=== PATIENT | male | born 1950 | race Caucasian/White ===

== ENCOUNTER → 2018-06-21 13:50 | Outpatient (CLI) | payer MEDICARE, OTHER, SELFPAY ==
--- NOTE | 2018-06-21 13:54 | US_ITS ---
STUDY: RENAL ULTRASOUND - COMPLETE REASON FOR EXAM: Male, 67 years old. Decreased urinary stream TECHNIQUE: Ultrasound evaluation of the kidneys was performed with real-time and static escobar-scale imaging. COMPARISON: None. FINDINGS: RIGHT KIDNEY: Normal location of the right kidney, which is normal in size. The right kidney measures 11.5 x 4.8 x 5.2 cm cm. There is a normal cortex of the right kidney. The renal cortex measures 1.3 cm. There is a cyst measuring 7.7 x 5.7 x 5.5 cm. There are no right renal calculi. There is no right hydronephrosis. DISTAL RIGHT URETER: There is non-visualization of the distal right ureter. There is no demonstrated right ureterovesical junction calculus. There is a visualized right ureteral jet. LEFT KIDNEY: Normal location of the left kidney, which is normal in size. The left kidney measures 12.5 x 5 x 4.5 cm. There is a normal cortex of the left kidney. The renal cortex measures 3.1 cm. There are 3 cysts measuring 3.8 x 2.9 x 4 cm, 2.3 x 2.9 x 2.5 cm, 1.7 x 1.3 x 1.6 cm There are no left renal calculi. There is no left hydronephrosis. DISTAL LEFT URETER: There is non-visualization of the distal left ureter. There is no demonstrated left ureterovesical junction calculus. There is a visualized left ureteral jet. BLADDER: The distended urinary bladder has a volume of 369.94 ml.. There is deformity of the base of bladder which has the appearance of a prior TURP however clinical correlation is recommended There is a normal wall thickness of the distended urinary bladder. There is no demonstrated mass within the urinary bladder. There are no demonstrated bladder calculi. US/Kidney and Bladder IMPRESSION: Bilateral renal cysts. No evidence for hydronephrosis. Electronically Signed: Elliott Fowler MD at 21:24 EST , Service support ,
== END ==
PROVIDERS: Family Provider Internal Medicine; PCP Internal Medicine; Referring Provider Urology; Visit Provider Urology
DX: R39.12 Poor urinary stream (principal)
CPT/HCPCS: 76770

== ENCOUNTER 2019-04-26 08:30 | Outpatient (RCR) | payer MEDICARE, OTHER, SELFPAY ==
--- NOTE | 2019-04-05 17:03 | HP.PTEVAL ---
Patient's Visit Information ALEIDA HOWARD is a 68 year old M referred to Physical Therapy by Denny Bustamante MD with a diagnosis of L knee OA. Date of Evaluation: 04/05/19 Physical Therapist: Jesse Cervantes DPT - Visit Plan Frequency: 2x /Week Duration: 4 Weeks Plan: Start with ROM AROM, strengthening of hip/knee musculature, progress to gym exercises as able. - Subjective Findings: Pt. is here today for his initial evaluation with diagnosis of L knee OA. Pt. reports having pain for a number of years, but has been worse over the past year. He has been getting injections with 2-3 months of relief at a time, but recently is getting closer to 1 month. Pt. reports having 1/10 pain currenrtly, but elevates with walking, squating, and stair negotiation. Pt. reports sitting, OTC meds and icey hot patches help with reducing pain. He denies N/T. He reports being hesitant to get back to into gym exercises due to feeling like he would do more damage. He reports having an Xray showing OA and spurring. Pt. is retired, but is still active. He would like to reduce symptoms in order to get back to all recreational activities without limitations. - Pain L knee Pain Intensity (Out of 10): 1 Pain Intensity Range: 0, 5 - Objective POSTURE: Pt. has decent posture in stance. Pt. appears to have minimal valgus deformity. 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 SLight increase in symptoms in TKE and stance. PALPATION: Pt. has mild medila and lateral joint line pain. Pt. has no patellar pain, no popliteal fossa pain. NEURO: normal throughout bilateral LEs. ROM: L knee- 0-2-120deg. R knee 0-0-135deg. Pt. has tight bilateral HS and tight bilaterl quad musculature. MMT: RLE- 5/5 throughout. LLE- ankle 5/5 throughout; knee: ext 5-/5, flexion 5-/5 increase NW, hip: flexion 4+/5, abd 4/5, ext 4+/5. Core strength- fair-. GAIT: Pt. ambulates without AD, but has antalgic pattern during L stance phase. Pt. lacks TKE during stance phase, but is able to achieve with VCing. Pt. reprots icnreased pain during TKE with stance phase. STAIRS: reciprocal pattern, heavy use of HR with ascending with increased pain during L stance phase, no pain with descending. - Goals Goal 1:: Pt. to be I with HEP. Goal Time Frame: 4-6 Weeks Goal 2:: Pt. to have increased L knee ROM 0-0-135deg withotu icnrease in symptoms. Goal Time Frame: 4-6 Weeks Goal 3:: Pt. to have increased LLE strength increased by 1/2 grade of all effected musculature. Goal Time Frame: 4-6 Weeks Goal 4:: Pt. to complete all gym routine without increase in symptoms Goal Time Frame: 4-6 Weeks Goal 5:: Pt. to to negotiate steps with normal pattern with 0-1/10 pain. Goal Time Frame: 4-6 Weeks - Rehabilitation Potential Physical Therapy Diagnosis: Pt. has signs and symptoms consistent with L knee OA. Pt. has subsequent hypombility, weakness, increased pain and difficulty walking. Pt. reports having overall increased pain with all WBing activities. Pt. would benefit from PT to increase ROM, strength and reduce his symptoms. Rehabilitation Potential: Good - Anticipated Interventions Patient/Client Instruction: Educate patient on: Condition, Plan of Care, Risk Factors, Benefits of Fitness Program For the Purpose of:: To foster healthy habits, To improve decision making, To facilitate caregiver knowledge, To improve self management, To prevent re-injury, To improve ability to perform tasks related to life management, To improve tolerance to ADL's Therapeutic Exercise to Include: Strength training, Power training, Body mechanics, Postural training, Flexibilty training, Gait and locomotor training, Passive ROM For the Purpose of:: To decrease pain, To decrease swelling/inflammation, To increase ROM, To improve nutrient delivery to tissue, To increase oxygenation perfusion, To improve muscle performance and motor function, To improve ability to perform ADL's, To improve gait and locomotor functions, To improve health of tissue, To decrease soft tissue restriction, To increase flexibility/ROM, To improve endurance Manual Therapy Techniques to Include: Mobilization, Passive ROM, Soft tissue mobilization For the Purpose of:: To decrease pain, To decrease swelling/inflammation, To increase ROM, To improve nutrient delivery to tissue, To increase oxygenation perfusion, To improve muscle performance and motor function, To improve ability to perform ADL's Thank you for the opportunity to evaluate your patient. For Medicare and Medicare HMO plans, please review the plan of care and approve it. It will need to be FAXED BACK to us at [phone] for Medicare purposes. For Medicare only, by signing this I certify the plan of care. Please let me know if there are questions or concerns regarding this plan of care. Physician Signature: Date:
--- NOTE | 2019-04-26 13:11 | HP.PTDCSUM ---
HP - PT D/C Summary It has been my pleasure to treat ALEIDA HOWARD under orders from Denny Bustamante MD, for the diagnosis of L knee OA for a total of 7 visit(s). Discharge Date: 04/26/19 Please see the following information for a summary of their discharge status. - Subjective Subjective: Pt. reports being 95% better overall. Pt. reports being compliant with all HEP. Pt. is independent with all gym exercises. - Pain L knee Pain Intensity (Out of 10): 0 - Overall Improvement % Improvement: 95 - Objective Objective/Function: ROM: 0-0-125deg. Pt. has tightness in his HS, but overall improved. MMT: 5/5 throughout B LEs. Pt. reports no pain with testing. PT. is uindependent with all HEP and gym exercises. - Goals Goal 1:: Pt. to be I with HEP. Goal Progress: Goal Met Goal 2:: Pt. to have increased L knee ROM 0-0-135deg withotu icnrease in symptoms. Goal Progress: Progressing Goal 3:: Pt. to have increased LLE strength increased by 1/2 grade of all effected musculature. Goal Progress: Goal Met Goal 4:: Pt. to complete all gym routine without increase in symptoms Goal Progress: Goal Met Goal 5:: Pt. to to negotiate steps with normal pattern with 0-1/10 pain. Goal Progress: Goal Met - Plan Plan: Pt. to be DC to gym and HEP exercises. Pt. consents. - D/C Information Discharge Comments: Pt. did very well with stretching and strengthening. Pt. is now independent with his gym exercises and HEP. Pt. karri be DC from Pt to gym exercises at this point in time. If there are questions or concerns regarding this patient's physical therapy, please feel free to call me at [phone]. Thank you for the referral of this patient. Sincerely, Jesse Cervantes DPT
== END 2019-04-26 14:44 | disposition home or self-care (01) ==
LOC: PT 08:30
PROVIDERS: Family Provider Internal Medicine; PCP Internal Medicine; Referring Provider Orthopaedic Surgery; Visit Provider Orthopaedic Surgery
DX: M17.12 Unilateral primary osteoarthritis, left knee (principal)
CPT/HCPCS: 97110; 97161

== ENCOUNTER → 2019-08-18 09:56 | Outpatient (CLI) | payer MEDICARE, OTHER, SELFPAY ==
--- NOTE | 2019-08-18 10:02 | RAD_ITS ---
STUDY: X-RAY CHEST REASON FOR EXAM: Male, 68 years old. COUGH X 2 MOS. HX OF ALLERGIES/ASTHMA, HYSTOPLASMOSIS X 13-14 YRS AGO TECHNIQUE: PA and lateral views of the chest. COMPARISON: Comparison is made with prior examination of July 27, 2011. FINDINGS: Scattered calcified granulomas. Hyperinflation. There is no demonstrated pleural abnormality. Normal size heart. Normal mediastinum and briana. There is prominence of the pulmonary hilar arteries without peripheral pulmonary vascular congestion, suggesting pulmonary hypertension. There is atherosclerotic calcification of the aortic arch with tortuosity. There are diffuse degenerative changes of the visualized thoracic spine. Normal visualized ribs, clavicles, and shoulders. There is no demonstrated abnormality of the visualized soft tissue structures of the upper abdomen. RAD/Chest PA and Lateral IMPRESSION: Hyperinflation. No acute abnormality is seen. Electronically Signed: Abe Lloyd, at 14:58 EDT , Service support ,
== END ==
PROVIDERS: PCP Internal Medicine; Referring Provider Otolaryngology Otolaryngology/Facial Plastic Surgery; Visit Provider Otolaryngology Otolaryngology/Facial Plastic Surgery
DX: Z03.818 Encounter for observation for suspected exposure to other biological agents ruled out (principal); R05 Cough
CPT/HCPCS: 71046; 87635; G2023; U0004

== ENCOUNTER → 2019-08-18 | Outpatient (CLI) | payer MEDICARE, OTHER, SELFPAY | END | disposition home or self-care (01) | LOC: MTDU 10:21 → LABSPEC 11:44 | PROVIDERS: PCP Internal Medicine; Referring Provider Otolaryngology Otolaryngology/Facial Plastic Surgery; Visit Provider Otolaryngology Otolaryngology/Facial Plastic Surgery | DX: Z03.818 Encounter for observation for suspected exposure to other biological agents ruled out (principal) | CPT/HCPCS: 87635; G2023; U0004 ==

== ENCOUNTER 2019-08-27 09:02 | Emergency (ER) | payer MEDICARE, OTHER, SELFPAY ==
[2019-08-27 09:03] VITALS: BP 174/69; PULSE 96; RESP 16; TEMP 36.6; O2SAT 98; BMI 29.5
--- NOTE | 2019-08-27 09:42 | ED.VIS.GEN ---
History of Present Illness Informant: Patient Onset: Month(s) - 2 months Context: Gradual Onset Timing: Continuous Quality: Soreness Location: With arms and legs Current Severity: Moderate Maximum Severity: Severe Worsened by: Movement walking activity Relieved by: Rest Associated Symptoms: Denies Narrative: 68-year-old male with a past medical history of asthma presents to the emergency department with pain and soreness in his arms and legs bilaterally. Patient states he has been having these symptoms for approximately 2 months. They are worse in the morning when he wakes up. He has pain in both arms and legs. He describes it as soreness. It is mostly in his arms and thighs. He also has knee pain in the morning when he wakes up. He states he has bilateral carpal tunnel syndrome that needs surgery but has been put on hold secondary to the current pandemic from the coronavirus. No falls traumas or injuries. No numbness or tingling. No weakness. No loss of bowel or bladder function. No difficulty urinating or constipation. No fevers. No rash. No chest pain shortness of breath cough. No swelling of his arms or legs. No vomiting or diarrhea. He had a negative coronavirus test 8 days ago ordered by his ENT physician. He had a mild cough at that time but was put on a Z-Romeo and his cough has resolved he is no longer coughing. He is not short of breath. Again no chest pain or hemoptysis. He saw his primary care physician initially for this about 2 months ago and at that time was put on an anti-inflammatory several days later went to an urgent care for what he describes as an asthma attack and was put on low-dose prednisone which she states not only helped his breathing but his muscle pain as well. Prior similar symptoms: Yes Recent Illness/Hospitalization: No <Israel Clark - Last Filed: 08/27/19 10:52> <Vidhya Umaña - Last Filed: 08/27/19 12:41> Chief Complaint: General Illness Past Medical History Prior records reviewed: Yes Past Medical History: - - asthma Lives: With Family Smoking Status: Never smoker Alcohol: None Drugs: None <Israel Clark - Last Filed: 08/27/19 10:52> <Vidhya Umaña - Last Filed: 08/27/19 12:41> - Allergies and Home Meds Allergies/Adverse Reactions: Allergies Unable to Assess Allergy (Verified 08/27/19 09:08) Primary Care Physician: Terri Bacon DO [Primary Care Provider] - 2 Days Review of Systems All systems negative except as indicated General: Denies: Chills, Fever, Malaise Eyes: Denies: Visual changes - bilaterally, Blurred Vision - bilaterally, Diplopia ENT: Denies: Rhinorrhea, Sore throat Cardiovascular: Denies: Chest pain, Palpitations, Heart racing Respiratory: Denies: Dyspnea, Cough, Sputum, Dyspnea on exertion, Orthopnea, Paroxysmal nocturnal dyspnea Gastrointestinal: Denies: Abdominal pain, Nausea, Vomiting, Diarrhea, Constipation, Melena, Hematochezia Genitourinary: Denies: Dysuria, Hematuria, Frequency Musculoskeletal: Reports: Myalgias, Arthralgias, Extremity Pain. Denies: Neck pain, Back pain, Swelling Skin: Denies: Rash, Abscess, Abrasions, Wounds Neurological: Denies: Headache, Weakness, Parasthesia, Numbness Psych: Denies: Depression, Anxiety <Israel Clark - Last Filed: 08/27/19 10:52> Physical Exam Vital Signs/Narrative: Vital Signs Temp Pulse Resp BP Pulse Ox 08/27/19 09:03 97.8 F 96 16 174/69 H 98 Inital Vital Signs reviewed: Yes General: Well nourished, Well developed, No Acute Distress Head: Normocephalic, Atraumatic Eyes: Perrl, EOMI ENT: Moist mucous membranes Neck: Supple, Nontender, No lymphadenopathy, No JVD Cardiovascular: Regular rate, Regular rhythm, No murmurs Respiratory: No distress, CTA bilaterally, Chest nontender Abdomen: Soft, Nontender, Nondistended, Normal bowel sounds, No masses Back: Nontender, Normal Inspection. Negative for: CVA tenderness, Spinal tenderness Extremities: Nontender, No edema. Negative for: Tenderness, Edema, Calf Tenderness Skin: Normal color, No rash, No Trauma Neurological: Alert, Oriented x3, Cranial nerves II-XII grossly intact, Normal Strength, Normal Sensation, Normal DTR, Normal Gait Psychological: Normal affect, Normal Mood <Israel Clark Last Filed: 08/27/19 10:52> Vital Signs/Narrative: Vital Signs Temp Pulse Resp BP Pulse Ox 08/27/19 09:03 97.8 F 96 16 174/69 H 98 <Vidhya Umaña - Last Filed: 08/27/19 12:41> Diagnostic/Tx/Re-eval - Medical Decision Making Patient presented to the emergency department with pain and soreness in both arms and legs. Physical exam he did not have any weakness on strength testing of either arm or leg. He had no neurologic deficits on exam. No signs of trauma rash or infection or compartment syndrome. No sign of DVT. He had normal pulses of all 4 extremities and sensation. His labs were obtained which showed a slightly elevated white blood cell count of 13.7, and elevated ESR and CRP. CK level was normal. At this time we are concerned for a process such as polymyalgia rheumatica secondary to the patient's symptoms being proximal with worsened symptoms in the morning and elevated markers of inflammation. Patient had been given a prescription for prednisone for his asthma about 6 weeks ago and he did notice improvement of this pain that he is describing on his presentation today. I spoke with his primary care physician Dr. Bacon with plan of placing the patient on a prednisone taper and she states that she will follow-up with him in the office on Thursday, in 2 days from now. Patient was also agreeable with this plan. Again I had the patient stand up and he is able to walk on his own and is comfortable with plan of discharge and outpatient follow-up. Return precautions were given. Laboratory Results 08/27/19 08/27/19 09:45 09:45 WBC 13.7 H RBC 4.97 Hgb 12.8 L Hct 41.2 MCV 82.9 MCH 25.8 L MCHC 31.1 L RDW Std Deviation 43.5 RDW Coeff of Rome 14.5 Plt Count 336 MPV 8.5 Immature Gran % (Auto) 0.500 Neut % (Auto) 83.1 H Lymph % (Auto) 8.4 L [place] % (Auto) 6.6 Eos % (Auto) 0.7 Baso % (Auto) 0.7 Absolute Neuts (auto) 11.4 H Absolute Lymphs (auto) 1.15 Nucleated RBC % 0 ESR 64 H Sodium 135 L Potassium 4.3 Chloride 104 Carbon Dioxide 23.0 Anion Gap 8 BUN 20 H Creatinine 1.02 Estim Creat Clear Calc 70.28 Est GFR (MDRD) Af Amer 93 Est GFR (MDRD) Non-Af 77 BUN/Creatinine Ratio 19.6 Glucose 127 H Calcium 9.1 Total Creatine Kinase 48 C-React Prot Ext Range 45.00 H <Israel Clark - Last Filed: 08/27/19 10:52> - Medical Decision Making Patient seen and evaluated with physicians porcelain buildup assistant. Patient independently interviewed and examined. Patient presents with a several month history of muscle aches, initially worse in the upper extremities. He has recently developed more pain in the hips and thighs. He states he feels very stiff and has difficulty getting around first thing in the morning. He is currently following up with orthopedics for carpal tunnel of his hands. Patient does state that he recently had an asthma exacerbation and when he was placed on steroids his symptoms seem to improve. This morning he was very stiff and weak and had trouble getting out of his chair. Patient sitting upright in bed no acute distress. Head neck examination normal. Heart regular rate and rhythm. Lung sounds are clear. Abdomen is soft and nontender. Neuro exam shows no focal deficits. Extremities emanation reveals no focal joint erythema or swelling. Test results reviewed. His sed rate and CRP are elevated. I do question whether he may have polymyalgia rheumatica. Patient was discussed with PCP and will be given a prednisone taper. He is to follow-up for further testing. <Vidhya Umñaa - Last Filed: 08/27/19 12:41> ED Disposition <Israel Clark - Last Filed: 08/27/19 10:52> <Vidhya Umaña - Last Filed: 08/27/19 12:41> - Plan for ED Patient: Disposition: Home or Assisted Living Diagnosis: Myalgia Instructions: ED ACHING MUSCLES, ED Myofascial Pain Syndrome Prescriptions: Prednisone 10 mg PO DAILY #63 tab Prescription Printed Referrals: Terri Bacon DO [Primary Care Provider] - 2 Days
[2019-08-27 09:52] LABS: Absolute Lymphocyte Count 1.15 X10^3/uL (0.83-4.51); Absolute Neutrophil Count 11.4 X10^3/uL (2.0-7.7); Basophil% 0.7 % (0-1); Eosinophil# 0.09 X10^3/uL; Eosinophils% 0.7 % (0-5); Hematocrit 41.2 % (40-54); Hemoglobin 12.8 g/dL (13.0-16.5); Lymphocyte # 1.15 X10^3/ul (4.0); Lymphocyte % 8.4 % (19-41); Mean Corp Hgb Conc 31.1 g/dL (32-36); Mean Corpuscular Hgb 25.8 pg (27.0-32.0); Mean Corpuscular Volume 82.9 fL (80-94); Mean Platelet Vol. 8.5 fl (6.2-12.0); Monocyte% 6.6 % (0-10); NRBC Flagged by Analyzer 0 % (0-5); Neutrophil # 11.43 X10^3/uL (2.7-7.7); Neutrophil % 83.1 % (47-70); Platelet Count 336 K/mm3 (150-450); RBC Distribution Width CV 14.5 % (11.6-14.6); RBC Distribution Width SD 43.5 fl (35.1-43.9); Red Blood Count 4.97 M/mm3 (4.6-6.2); White Blood Count 13.7 K/mm3 (4.4-11.0)
[2019-08-27 09:57] LABS: Erythrocyte Sedimentation Rate 64 mm/hr (0-20)
[2019-08-27 10:12] LABS: Anion Gap 8 (5-15); BUN 20 mg/dL (7-18); BUN/Creat Ratio 19.6 RATIO (10-20); CPK Total, Creatine Kinase 48 U/L (39-308); Calcium,Total 9.1 mg/dL (8.5-10.1); Chloride 104 mmol/L (98-107); Creatinine, Serum 1.02 mg/dL (0.70-1.30); EST Glomerular Filtration Rate 77 mL/min (>60); Est Glom Filt Rate - Afr Amer 93 mL/min (>60); Estimated Creatinine Clearance 70.28 ml/min; Glucose 127 mg/dL (74-106); Potassium 4.3 mmol/L (3.5-5.1); Sodium Level 135 mmol/L (136-145)
== END 2019-08-27 11:02 | disposition home or self-care (01) ==
PROVIDERS: Emergency Provider Physician Assistant Medical; PCP Internal Medicine
DX: M79.18 Myalgia, other site (principal); G56.03 Carpal tunnel syndrome, bilateral upper limbs; J45.909 Unspecified asthma, uncomplicated
CPT/HCPCS: 80048; 82550; 85025; 85652; 86140; 99283; A4216

== ENCOUNTER 2020-12-02 23:23 | Emergency (ER) | payer MEDICARE, OTHER, SELFPAY ==
[2020-12-02 23:28] VITALS: BP 149/79; PULSE 101; RESP 22; TEMP 37; O2SAT 95; BMI 28.8
[2020-12-02] MEDS: predniSONE 20 MG Tablet 60 MG PO (23:53)
[2020-12-02] MEDS: Ipratropium/Albuterol Sulfate 3 ML AMPUL.NEB INHALATION (23:57)
[2020-12-02] MEDS: Albuterol 2.5 MG/3 ML VIAL.NEB. INHALATION (23:57)
[2020-12-02 23:58] VITALS: PULSE 112; RESP 16
--- NOTE | 2020-12-03 | RAD_ITS ---
STUDY: X-RAY CHEST REASON FOR EXAM: Male, 70 years old. cough TECHNIQUE: 2 views COMPARISON: 08/18/2019 FINDINGS: Cardiomediastinal silhouette is unremarkable. Costophrenic angles are sharp. Lungs are clear. The trachea is midline. There is no pneumothorax. Multilevel thoracic spondylosis is noted. RAD/Chest PA and Lateral IMPRESSION: No acute cardiopulmonary process. Electronically Signed: Law Lloyd MD at 1:37 EDT Tel , Service support ,
--- NOTE | 2020-12-03 01:07 | ED.VIS.DYS ---
HPI History of Present Illness Chief Complaint: Cough Informant: patient and spouse/S.O. Narrative Narrative: Patient has been coughing for about 10 days. He saw his primary physician initially. It was suspected to be viral. I sounds like he was not wheezing at the time. This patient is on prednisone at 1 mg a day due to PMR. He has been tapered slowly. He was placed on what sounds like 20 mg a day for somewhere between 3 to 5 days when his symptoms started. He then saw pulverizer. He was placed on cefdinir. He has been slowly improving now. But he has episodes where he gets into coughing fits. He has had 1 of those tonight. No chest pain with this. No hemoptysis. He just keeps having a dry hacking cough. Last albuterol use was a couple hours ago. [facility] Medical History Carpal tunnel syndrome, bilateral PMR (polymyalgia rheumatica) Home Medications cefdinir 300 mg PO BID 12/02/20 [History Last Taken Unknown] losartan 50 mg PO DAILY 12/02/20 [History Last Taken Unknown] montelukast 10 mg PO DAILY 12/02/20 [History Last Taken Unknown] prednisone 1 mg PO DAILY 12/02/20 [History Last Taken Unknown] benzonatate [Tessalon Perles] 100 mg PO TID PRN #14 cap 12/03/20 [Rx Last Taken Unknown] prednisone 60 mg PO DAILY #12 tab 12/03/20 [Rx Last Taken Unknown] Allergy/AdvReac Type Severity Reaction Status Date / Time Unable to Assess Allergy Verified 08/27/19 09:08 Surgical History History of tonsillectomy and adenoidectomy Hx of appendectomy Hx of cholecystectomy Social History Smoking Status: Never smoker ROS ROS ED Constitutional Constitutional ED: Denies chills, fever(s), sweats or weight loss Eyes Eyes: Denies blurry vision ENT ENT ED: Reports rhinorrhea; Denies sore throat Cardiovascular Cardiovascular: Denies chest pain Respiratory/Chest Respiratory/Chest: Reports cough and sputum Gastrointestinal Gastrointestinal: Denies abdominal pain, nausea or vomiting Genitourinary Genitourinary ED: Denies dysuria or hematuria Musculoskeletal Musculoskeletal: Denies arthralgias or myalgias Integumentary Denies rash Neurologic Neurologic: Denies headache(s) Psychiatric Psychiatric: Denies depression Endocrine Endocrinology: Denies polydipsia or polyuria Hematologic/Lymphatic Hematologic/Lymphatic: Denies easy bruising EXAM Physical Exam Const Vital Signs: 12/02/20 23:28 12/02/20 23:58 12/03/20 00:30 Temperature 98.6 F Temperature Source Oral Pulse Rate 101 H 112 H Respiratory Rate 22 H 16 Respiratory Effort Short of Breath Respiratory Pattern Normal Tachypnea Blood Pressure 149/79 H Blood Pressure Mean 102 Pulse Ox 95 Oxygen Delivery Method Room Air 12/03/20 01:40 Temperature Temperature Source Pulse Rate 115 H Respiratory Rate 18 Respiratory Effort Respiratory Pattern Blood Pressure Blood Pressure Mean Pulse Ox 96 Oxygen Delivery Method Room Air Positive well nourished and well developed General Appearance ED: well developed and NAD HEENT atraumatic; Negative for trauma Eyes EOMs intact bilaterally General Eye ED: Negative for pale conjunctiva or scleral icterus Neck No no JVD Resp normal respiratory effort Resp Narrative: Patient has diffuse expiratory wheezing. No rhonchi or rales. No pain with a deep breath. Auscultation: wheezes Cardio regular rate and regular rhythm GI non-tender and non-distended Palpation: soft Back/Spine no CVA tenderness and normal to inspection Extremity normal to inspection General Extremety ED: Negative for edema or tenderness General Extremity: Negative for edema Neuro oriented x3 Sensorium / Orientation: alert Psych mental status grossly normal Skin Rashes: no rashes MDM MDM MDM Narrative Medical decision making narrative: Patient was treated with albuterol and a DuoNeb. He is also given prednisone. He has stopped coughing. I listen to his lungs and I was surprised that they were completely clear now. He is moving good air and no wheeze. O2 sat is 97% on room air with a good waveform. His Covid is negative. Chest x-ray is negative. Patient states that think he has problems due to allergies. He is on meds for this. I will give him a burst of prednisone at 60 mg. He has inhalers. He should finish the cefdinir as his symptoms have generally improved since starting this. He will follow up with his physicians. We discussed reasons to return. Radiography Diagnostic Testing: Radiology Impression Chest X-Ray 12/03/20 00:00 IMPRESSION: No acute cardiopulmonary process. Electronically Signed: Law Lloyd MD at 1:37 EDT Tel , Service support , Discharge Plan Triage Chief Complaint: Cough ED Provider: Tulio Mancera Dx/Rx/DC Orders Clinical Impression: Acute bronchospasm Instructions: ED Bronchitis with Wheezing (Adult) Prescriptions: New prednisone 20 mg tablet 60 mg PO DAILY Qty: 12 RF: 0 benzonatate [Tessalon Perles] 100 mg capsule 100 mg PO TID PRN (Reason: cough) Qty: 14 RF: 0 No Action losartan 50 mg tablet 50 mg PO DAILY RF: 0 montelukast 10 mg tablet 10 mg PO DAILY RF: 0 cefdinir 300 mg capsule 300 mg PO BID RF: 0 prednisone 10 MG tablet 1 mg PO DAILY RF: 0 Primary Care Provider: Terri Bacon Referrals: Terri Bacon, [Primary Care Provider] - 3-5 Days if not improving Disposition Disposition: Home, Self Care
[2020-12-03 01:40] VITALS: PULSE 115; RESP 18; O2SAT 96
[2020-12-03 02:24] VITALS: BP 126/52; PULSE 67; RESP 18; O2SAT 94
== END 2020-12-03 02:25 | disposition home or self-care (01) ==
PROVIDERS: Emergency Provider Emergency Medicine; PCP Internal Medicine
DX: J98.01 Acute bronchospasm (principal); M35.3 Polymyalgia rheumatica; Z79.52 Long term (current) use of systemic steroids
CPT/HCPCS: 71046; 87426; 94640; 99283

== ENCOUNTER → 2021-02-05 12:13 | Outpatient (CLI) | payer MEDICARE, OTHER, SELFPAY ==
--- NOTE | 2021-02-05 12:16 | CT_ITS ---
EXAM: CT MAXILLOFACIAL SINUSES WITHOUT INTRAVENOUS CONTRAST CLINICAL INDICATION: SINUSITIS TECHNIQUE: Helically acquired images were obtained of the maxillofacial sinuses without intravenous contrast. This CT exam was performed using one or more of the following dose reduction techniques: automated exposure control, adjustment of the mA and/or kV according to patient size, and/or use of iterative reconstruction technique. This report was created using [employer] report generation technology. COMPARISON: None. FINDINGS: MAXILLARY SINUSES: There is maxillary sinus disease. Ostiomeatal complexes are normally formed. SPHENOID SINUSES: Sphenoid sinus disease. FRONTAL SINUSES: Nonpneumatized frontal sinus. ETHMOID AIR CELLS: There is mild ethmoid sinus disease. NASAL CAVITY/SEPTUM: Nasal septum is midline. Nasal turbinates are unremarkable. BONES/JOINTS: Degenerative changes of the mandibular condyles. ORBITS: Unremarkable. DENTAL: Unremarkable as visualized. No periodontal osseous erosion. CT/Sinus/Facial Bone IMPRESSION: Diffuse sinus disease. Electronically Signed: Quan Zavala MD at 15:12 EDT , Service support ,
== END ==
PROVIDERS: PCP Internal Medicine; Referring Provider Nurse Practitioner; Visit Provider Nurse Practitioner
DX: J32.0 Chronic maxillary sinusitis (principal)
CPT/HCPCS: 70486

== ENCOUNTER 2021-02-05 20:47 | Emergency (ER) | payer MEDICARE, OTHER, SELFPAY ==
[2021-02-05 20:48] VITALS: BP 131/80; PULSE 89; RESP 22; TEMP 36.6; O2SAT 96; BMI 27.3
[2021-02-05 21:30] VITALS: PULSE 89; RESP 22; RESP 28; O2SAT 94
[2021-02-05] MEDS: Ipratropium/Albuterol Sulfate 3 ML AMPUL.NEB INHALATION (21:30)
[2021-02-05] MEDS: Albuterol 2.5 MG/3 ML VIAL.NEB. INHALATION (21:30)
--- NOTE | 2021-02-05 21:30 | EKG12_ITS ---
Test Reason : DYSRHYTHMIA Blood Pressure : / mmHG Vent. Rate : 086 BPM Atrial Rate : 086 BPM P-R Int : 158 ms QRS Dur : 082 ms QT Int : 352 ms P-R-T Axes : 076 017 073 degrees QTc Int : 421 ms Normal sinus rhythm Normal ECG Confirmed by JOEL CHICAS, ANAHI ([id number]), publishing editor DIEGO WEST ([id number]) on 02/06/2021 9:11:12 AM Referred By: MOOSE Confirmed By:ANAHI MALDONADO MD
--- NOTE | 2021-02-05 22:01 | EDS_ITS ---
HPI History of Present Illness Chief Complaint: Shortness of Breath Narrative Narrative: 70-year-old male presenting with shortness of breath. He has severe seasonal allergies and has been testing his allergies outpatient with Dr. Yeh. He was on steroids a couple of weeks ago and says he was doing great. He uses an albuterol inhaler at home and states this helps intermittently. He has been having trouble with wheezing the past few days. He denies fever, chills, body aches, headache. He states he has been fatigued but also has been staying up late coughing. He has been vaccinated for Covid and otherwise feels healthy. He denies chest pain. For his cough he has cough syrup with codeine as well as Tessalon Perles which initially worked but now are not helping as much. 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 He cannot get in the office with his primary care doctor and has only seen his primary's nurse practitioner. He does not have home nebulizers. [facility] Medical History Carpal tunnel syndrome, bilateral PMR (polymyalgia rheumatica) Home Medications cefdinir 300 mg PO BID 12/02/20 [History Last Taken Unknown] losartan 50 mg PO DAILY 12/02/20 [History Last Taken Unknown] montelukast 10 mg PO DAILY 12/02/20 [History Last Taken Unknown] prednisone 1 mg PO DAILY 12/02/20 [History Last Taken Unknown] benzonatate [Tessalon Perles] 100 mg PO TID PRN #14 cap 12/03/20 [Rx Last Taken Unknown] prednisone 60 mg PO DAILY #12 tab 12/03/20 [Rx Last Taken Unknown] prednisone 50 mg PO DAILY #5 tab 02/06/21 [Rx Last Taken Unknown] Allergy/AdvReac Type Severity Reaction Status Date / Time No Known Allergies Allergy Verified 02/05/21 22:01 Surgical History History of tonsillectomy and adenoidectomy Hx of appendectomy Hx of cholecystectomy Social History Smoking Status: Never smoker ROS ROS ED Constitutional Constitutional ED: Denies chills or fever(s) Eyes Eyes: Denies blurry vision or change in vision ENT ENT ED: Reports rhinorrhea; Denies sore throat Cardiovascular Cardiovascular: Denies chest pain or palpitations Respiratory/Chest Respiratory/Chest: Reports cough and dyspnea; Denies sputum Gastrointestinal Gastrointestinal: Denies abdominal pain, nausea or vomiting Genitourinary Genitourinary ED: Denies dysuria or hematuria Musculoskeletal Musculoskeletal: Denies arthralgias or myalgias Integumentary Denies Abrasions or rash Neurologic Neurologic: Denies headache(s) or paresthesias EXAM Physical Exam Const Vital Signs: 02/05/21 20:48 02/05/21 21:30 02/05/21 22:01 Temperature 97.8 F Temperature Source Temporal Pulse Rate 89 89 Respiratory Rate 22 H 28 H Respiratory Effort Short of Breath Labored Short of Breath Respiratory Depth Shallow Respiratory Pattern Tachypnea Tachypnea Blood Pressure 131/80 H Blood Pressure Mean 97 Pulse Ox 96 94 Oxygen Delivery Method Room Air Room Air 02/05/21 22:06 02/05/21 23:05 02/06/21 00:02 Temperature Temperature Source Pulse Rate 91 Respiratory Rate 16 16 10 L Respiratory Effort Respiratory Depth Respiratory Pattern Blood Pressure 116/73 119/78 115/79 Blood Pressure Mean 87 91 91 Pulse Ox 96 97 97 Oxygen Delivery Method Room Air Room Air Positive well nourished General Appearance ED: NAD HEENT Reports moist mucous membranes Negative for atraumatic Eyes PERRL and EOMs intact bilaterally Resp normal respiratory effort Auscultation: wheezes scattered wheezes Cardio regular rate and regular rhythm Neuro oriented x3, CN's II-XII intact bilaterally and no sensory deficits noted Sensorium / Orientation: alert and oriented to person Motor Exam: strength 5/5 throughout Psych mental status grossly normal Thought Process: normal thought process Skin Lesions: no lesions Rashes: no rashes MDM MDM MDM Narrative Medical decision making narrative: Patient presenting with exacerbation of asthma. He does not have any viral symptoms. He does have a cough but this is chronic. He is wheezing on exam. He was given breathing treatments and his wheezing has improved. I will give him prednisone orally. I will monitor him in the ED. patient reevaluated at midnight. He is still feeling well. He actually feels much better. I believe he is stable for discharge home. His wheezing is cleared up. I will give him a burst of prednisone for home. He has an albuterol inhaler. He has follow-up with his primary in a few days. If he has any new or worsening symptoms he is asked to return. Patient stable for discharge. Impression: 1. Asthma laceration Discharge Plan Triage Chief Complaint: Shortness of Breath ED Provider: Dank Burt Dx/Rx/DC Orders Instructions: ED Asthma, Acute (Adult) Prescriptions: New prednisone 50 mg tablet 50 mg PO DAILY Qty: 5 RF: 0 No Action losartan 50 mg tablet 50 mg PO DAILY RF: 0 montelukast 10 mg tablet 10 mg PO DAILY RF: 0 cefdinir 300 mg capsule 300 mg PO BID RF: 0 prednisone 10 MG tablet 1 mg PO DAILY RF: 0 prednisone 20 mg tablet 60 mg PO DAILY Qty: 12 RF: 0 benzonatate [Tessalon Perles] 100 mg capsule 100 mg PO TID PRN (Reason: cough) Qty: 14 RF: 0 Primary Care Provider: Terri Bacon Referrals: Terri Bacon DO [Primary Care Provider] - Disposition Disposition: Home, Self Care
[2021-02-05] MEDS: predniSONE 20 MG Tablet 60 MG PO (22:03)
[2021-02-05 22:06] VITALS: BP 116/73; PULSE 91; RESP 16; O2SAT 96
--- NOTE | 2021-02-05 22:35 | CPS ---
x1 Albuterol given to pt. in ER as well
[2021-02-05 23:05] VITALS: BP 119/78; RESP 16; O2SAT 97
[2021-02-06 00:02] VITALS: BP 115/79; RESP 10; O2SAT 97
[2021-02-06 00:19] VITALS: BP 115/76; PULSE 77; RESP 18; O2SAT 95
== END 2021-02-06 00:19 | disposition home or self-care (01) ==
PROVIDERS: Emergency Provider Student in an Organized Health Care Education/Training Program; PCP Internal Medicine
DX: J45.901 Unspecified asthma with (acute) exacerbation (principal); Z79.51 Long term (current) use of inhaled steroids; J32.0 Chronic maxillary sinusitis
CPT/HCPCS: 70486; 93005; 94640; 99251; 99283; G0463

== ENCOUNTER 2021-04-29 07:28 | Day surgery (SDC) | payer MEDICARE, OTHER, SELFPAY ==
[2021-04-29] VITALS (7 sets, daily range): BP systolic 122–157; BP diastolic 76–91; PULSE 56–66; RESP 16; TEMP 36.1–36.3; O2SAT 97–100; BMI 27.3
[2021-04-29] MEDS: Lactated Ringers 1,000 ML 15 ML IV ×2 (08:02→10:00)
[2021-04-29] MEDS: Oxymetazoline 0.05% 1 SPRAY SPRAY.BTL 2 SPRAY NASAL (08:02)
--- NOTE | 2021-04-29 08:51 | PCM.DC.SUM ---
Providers Primary Care Physician: Dr. Terri Bacon DO Reason For Visit: BILATERAL ETHMOIDECTOMY, MAXILLARY ANTROSTOMY Medications at Discharge Home Medications losartan 50 mg PO DAILY 12/02/20 montelukast 10 mg PO DAILY 12/02/20 prednisone 5 mg PO BID 12/02/20 cholecalciferol (vitamin D3) [Vitamin D3] 25 mcg PO DAILY 04/22/21 fluticasone propionate [Flonase] 2 spray INTRANASAL DAILY 04/22/21 levocetirizine [Xyzal] 5 mg PO DAILY 04/22/21 pbcpprv-gsbj-rrbdq-oreg-capryl 1 cap PO DAILY 04/22/21 vit C-vit V-qrcyws-oyjn-lutein [PreserVision Lutein] 1 cap PO BID 04/22/21 Trelegy Ellipta 1 puff DAILY 04/29/21 Weight / BMI Weight Weight: 84 kg Body Mass Index (BMI) 27.3 D/C Instructions Discharge Diet: No restrictions Lifting Restrictions: 15 lbs. Additional Dressing/Incision Instructions: Start antibiotic tonight. Start irrigation 4/5x/day tomorrow. No nose blowing Meaningful Use Info Meaningful Use Diagnoses (Choose all that apply): None applicable Discharge Plan Admission Attending Provider: Armando Yeh Primary Care Provider: Terri Bacon Discharge Orders/Prescriptions Prescriptions: No Action losartan 50 mg tablet 50 mg PO DAILY RF: 0 montelukast 10 mg tablet 10 mg PO DAILY RF: 0 prednisone 10 MG tablet 5 mg PO BID RF: 0 fluticasone propionate [Flonase] 50 mcg/actuation [place],Suspension 2 spray INTRANASAL DAILY RF: 0 levocetirizine [Xyzal] 5 mg Tablet 5 mg PO DAILY RF: 0 PreserVision Lutein 226 mg-200 unit -5 mg-0.8 mg Capsule 1 cap PO BID RF: 0 cholecalciferol (vitamin D3) [Vitamin D3] 25 mcg (1,000 unit) Tablet 25 mcg PO DAILY RF: 0 wikmyka-nsvo-whikx-oreg-capryl 100 mg-150 mg- 50 mg-150 mg Capsule 1 cap PO DAILY RF: 0 Trelegy Ellipta inhaler 1 puff DAILY RF: 0
--- NOTE | 2021-04-29 09:00 | NASAL_PTH ---
PATIENT: ALEIDA HOWARD LOC: [facility] U#:[id number] AGE/SX: 70/M ROOM: RE04/29/[address]: Dr. Armando Yeh MD : 1950 BED: DIS: 04/29/2021 SPEC #: [id number] RECD: 04/29/21 11:18 STATUS: JUDY REFiliberto #: [id number] FLACO: 04/29/21 09:[address]: Armando Yeh DEPT: SURGICAL PATHOLOGY RECD BY: Shena Contreras ENTERED: 04/29/21 12:55 SP TYPE: NASAL SPEC OTHR DR: Dr. Terri Bacon DO Tissues: A - Ethmoid sinus, NOS B - Ethmoid sinus, NOS Procedures: Decalcification bone/plaque Surgery Specimen Level III HEADER OPERATION: Endoscopic intranasal ethmoid, maxillary, antrostomy, Navigation PRE-OP DIAGNOSIS: Chronic sinusitis TISSUE SUBMITTED: A ? Right sinus contents, B ? Left sinus contents MICROSCOPIC DIAGNOSIS A. Right sinus contents, curettings: Consistent with chronic sinusitis. Fragments of bone with no pathologic change. B. Left sinus contents, curettings: Consistent with chronic sinusitis. Fragments of bone with no pathologic change. AM:layne 05/02/2021 MICROSCOPIC DESCRIPTION Slides are reviewed. GROSS DESCRIPTION A - Received in fixative is one container labeled with the patient's name and designated right sinus contents. The specimen consists of multiple fragments of hemorrhagic soft tissue mixed with fragments of bone that in aggregate measure 5 x 3 x 0.3 cm. The entire specimen is submitted in two cassettes after decalcification. B - Received in fixative is one container labeled with the patient's name and designated left sinus contents. The specimen consists of multiple fragments of marin soft tissue mixed with fragments of bone that in aggregate measure 3 x 2.5 x 0.3 cm. The entire specimen is submitted in one cassette after decalcification. / SJ:layne 04/29/21 TC:3 CPT: 41336 x2, 47895 x2
[2021-04-29] MEDS: Lidocaine 1% /Epi 1:100 (20ml) 20 ML Vial (09:45)
--- NOTE | 2021-04-29 10:02 | PCM.OPRPT ---
Report of Operation Date of Procedure: 04/29/21 Pre-Operative Diagnosis: chronic sinusitis Post-Operative Diagnosis: same Surgery/Procedure Performed:: bilateral total ethmoidectomy bilateral maxillary antrostomy bilateral partial middle turbinectomy use of navigation Surgeon: Armando Yeh Type of Anesthesia: General Anesthesiologist: Anatoliy Kent Estimated Blood Loss (mL): minimal Description of Procedure: The patient was taken to the operating room on 04/29/2021. The patient was placed in the supine position on the operating table. The patient was given sufficient general endotracheal anesthesia. The head of bed was elevated 30 degrees. The navigation system was placed and verified per protocol and found to be accurate. 0 and 30 degrees rigid nasal endoscopes were used throughout the entire case. The middle turbinate uncinate process and polyps were injected with 1% lidocaine with epinephrine bilaterally. The right middle turbinate was medialized with a [place] elevator. Polyp was removed from medial to the middle turbinate using a sinus shaver. A ball-tipped sinus seeker was placed into the patient's maxillary sinus. The uncinate process was taken down using a microdebrider. Next, the ethmoid bulla was opened with a small curette. Anterior and posterior ethmoidectomy were then carried out using curette, sinus shaver and 45 degree [place] Reena forceps. Ethmoid cells were verified for relation to the skull base and orbit prior to being entered with the navigation system. I then placed Afrin pledgets into the sinonasal cavity. The middle turbinate kept lateralizing. Thus, I elected to trim the inferior 1/2 with nikhil cut forceps. The free edge was cauterized. Next attention was turned to the left side. The middle turbinate was medialized with a [place] elevator. A large polyp was removed from the medial aspect of the middle turbinate using a sinus shaver. This was very close to the nasal roof and some polyp was left there. The edge was cauterized gently. The uncinate process was taken down using a sinus shaver. In doing so, the maxillary antrostomy was created. The middle turbinate kept lateralizing. Thus, I elected to trim the inferior 1/2 with nikhil cut forceps. The free edge was cauterized. The ethmoid bulla was opened with a small curette. Anterior posterior ethmoidectomy were then carried out using a sinus shaver curette and [place] Reena forceps. Ethmoid cells were verified for relation to the skull base and orbit prior to being entered with the navigation system. Hemostasis was then achieved using Afrin pledgets. The pledgets were then removed bilaterally and Iva powder was applied bilaterally for absolute hemostasis. The procedure was then terminated. The patient was then awoken and brought to the recovery room in stable condition blood loss less than 30 cc replacement none. Sponge, needle, instrument count were correct at the end of the procedure.
== END 2021-04-29 23:59 | disposition home or self-care (01) ==
LOC: SDC 07:32 → AC 07:33
PROVIDERS: PCP Internal Medicine; Referring Provider Otolaryngology; Visit Provider Otolaryngology
PROC: (CPT 30110; principal; 2021-04-29 08:30)
DX: J32.8 Other chronic sinusitis (principal); J33.9 Nasal polyp, unspecified; I10 Essential (primary) hypertension; J45.909 Unspecified asthma, uncomplicated; M19.90 Unspecified osteoarthritis, unspecified site; Z79.899 Other long term (current) drug therapy
CPT/HCPCS: 30110; 31255; 31256; 00160; 88304; 88305; 88311; J7120; J2405

== ENCOUNTER 2021-06-14 13:45 | Emergency (ER) | payer MEDICARE, OTHER, SELFPAY ==
[2021-06-14 13:48] VITALS: BP 119/75; PULSE 71; RESP 18; TEMP 36.8; O2SAT 100; BMI 30.3
--- NOTE | 2021-06-14 15:05 | CT_ITS ---
STUDY: CTA CHEST REASON FOR EXAM: Male, 70 years old. Pulmonary embolism RADIATION DOSAGE (If Supplied By Facility): CTDIvol = ( 14.25 ) mGy, DLP = ( 513.07 ) mGycm TECHNIQUE: The examination was performed with the intravenous administration of IV 100mL Isovue-370. Post-processing of the angiographic images was performed, with multiplanar reformation and 3D reconstruction. Individualized dose optimization techniques were used for this CT. COMPARISON: None. FINDINGS: Normal enhancement of the main pulmonary artery and right and left pulmonary arteries. Normal enhancement of the bilateral peripheral pulmonary arteries. There is no demonstrated pulmonary embolism. Normal thoracic aorta and visualized great vessels. There is no demonstrated aortic dissection. Normal heart and pericardium. Normal mediastinum. Normal hilar regions. Normal visualized trachea and bronchi. The lungs are well expanded. Bibasilar dependent atelectasis. Normal pleura. Normal chest wall structures. Degenerative changes of the Normal visualized upper abdomen. CT/CTA Chest W/WO Contrast IMPRESSION: No demonstrated pulmonary embolism or arterial dissection. Electronically Signed: Farzad Soriano DO at 16:41 EST Reading Location ID and State: [facility] / [place] Tel [phone], Service support ,
--- NOTE | 2021-06-14 15:06 | EKG12_ITS ---
Test Reason : MARIAMA Blood Pressure : / mmHG Vent. Rate : 086 BPM Atrial Rate : 086 BPM P-R Int : 172 ms QRS Dur : 092 ms QT Int : 354 ms P-R-T Axes : 040 -13 008 degrees QTc Int : 423 ms Normal sinus rhythm Inferior infarct , age undetermined Abnormal ECG Confirmed by CURT CHICAS, FRANK ([id number]), electronic news gathering editor DIEGO WEST ([id number]) on 06/17/2021 1:12:15 PM Referred By: ELPIDIO Confirmed By:MARIANELA ELIAS MD
[2021-06-14] MEDS: 0.9% Normal Saline 1,000 ML 1000 ML IV (15:18)
[2021-06-14 15:33] LABS: Absolute Neutrophil Count 11.1 X10^3/uL (2.0-7.7); Basophil# 0.08 X10^3/uL; Basophil% 0.6 % (0-1); Eosinophil# 0.03 X10^3/uL; Eosinophils% 0.2 % (0-5); Hematocrit 34.5 % (40-54); Hemoglobin 11.6 g/dL (13.0-16.5); Mean Corp Hgb Conc 33.6 g/dL (32-36); Mean Corpuscular Hgb 30.4 pg (27.0-32.0); Mean Corpuscular Volume 90.3 fL (80-94); Mean Platelet Vol. 9.4 fl (6.2-12.0); Monocyte% 12.5 % (0-10); NRBC Flagged by Analyzer 0 % (0-5); Neutrophil # 11.13 X10^3/uL (2.7-7.7); Neutrophil % 77.2 % (47-70); POSITIVE DIFFERENTIAL YES; Platelet Count 214 K/mm3 (150-450); RBC Distribution Width CV 13.9 % (11.6-14.6); RBC Distribution Width SD 45.7 fl (35.1-43.9); Red Blood Count 3.82 M/mm3 (4.6-6.2); White Blood Count 14.4 K/mm3 (4.4-11.0)
[2021-06-14 15:47] LABS: Differential Indicated SCAN CRITERIA MET
[2021-06-14 15:57] LABS: AST(SGOT) 15 U/L (15-37); Alanine Aminotransfer ALT/SGPT 13 U/L (16-61); Albumin, Serum 3.1 g/dL (3.2-5.0); Alkaline Phosphatase 60 U/L (45-117); Anion Gap 6 (5-15); BUN 19 mg/dL (7-18); BUN/Creat Ratio 19.4 RATIO (10-20); Calcium,Total 8.1 mg/dL (8.5-10.1); Chloride 107 mmol/L (98-107); Creatinine, Serum 0.98 mg/dL (0.70-1.30); EST Glomerular Filtration Rate 80 mL/min (>60); Est Glom Filt Rate - Afr Amer 97 mL/min (>60); Estimated Creatinine Clearance 71.14 ml/min; Glucose 116 mg/dL (74-106); Potassium 3.6 mmol/L (3.5-5.1); Protein, Total 6.1 g/dL (6.4-8.2); Sodium Level 141 mmol/L (136-145); Troponin-I HS 6 pg/mL (3.0-78.0)
[2021-06-14 16:31] VITALS: BP 129/83; PULSE 93; RESP 20; O2SAT 99
[2021-06-14 17:01] LABS: Platelet Estimate ADEQUATE (ADEQ); Red Cell Morphology NORM C+C NORMAL (NORM C&C)
--- NOTE | 2021-06-14 17:45 | EDS_ITS ---
HPI History of Present Illness Chief Complaint: Syncope Informant: patient Onset/Context/Timing Onset: Today Context: Sudden Onset Quality: Lightheaded Location: Generalized Worsened by: Standing Relieved by: Nothing Narrative Narrative: Patient presents after syncopal episode that occurred today. Patient states he felt lightheaded. Patient states this was worse with standing. Patient states he had taken a dose of oxycodone earlier today. Patient had a recent left total knee replacement at the [facility] by Dr. Bustamante. Patient had some nausea and lightheadedness when he passed out. Patient was ambulating with his walker when he felt lightheaded. Patient was able to sit in a chair and then passed out. Patient did not fall to the ground. Patient denies any palpitations. Patient denies any chest pain. [facility] Medical History Arthritis Asthma Carpal tunnel syndrome, bilateral History of steroid therapy History of stress test Hypertension Non-smoker PMR (polymyalgia rheumatica) Home Medications losartan 50 mg PO DAILY 12/02/20 [History Last Taken 04/29/21] montelukast 10 mg PO DAILY 12/02/20 [History Last Taken Unknown] cholecalciferol (vitamin D3) [Vitamin D3] 25 mcg PO DAILY 04/22/21 [History Last Taken Unknown] fluticasone propionate [Flonase] 2 spray INTRANASAL DAILY 04/22/21 [History Last Taken Unknown] levocetirizine [Xyzal] 5 mg PO DAILY 04/22/21 [History Last Taken Unknown] sjimtsa-vack-jjkdj-oreg-capryl 1 cap PO DAILY 04/22/21 [History Last Taken Unknown] vit C-vit G-sujuvt-pplr-lutein [PreserVision Lutein] 1 cap PO BID 04/22/21 [History Last Taken Unknown] Trelegy Ellipta 1 puff DAILY 04/29/21 [History Last Taken 04/29/21] hydrocodone-acetaminophen 1 tab PO Q6H PRN PRN 3 Days #10 tablet 06/14/21 [Rx Last Taken Unknown] Allergy/AdvReac Type Severity Reaction Status Date / Time No Known Allergies Allergy Verified 06/14/21 13:46 Surgical History History of carpal tunnel release of both wrists History of tonsillectomy and adenoidectomy Hx of appendectomy Hx of cholecystectomy Social History Smoking Status: Never smoker ROS ROS ED Constitutional Constitutional ED: Denies chills or fever(s) Eyes Eyes: Denies blurry vision or change in vision ENT ENT ED: Denies rhinorrhea or sore throat Cardiovascular Cardiovascular: Denies chest pain or palpitations Respiratory/Chest Respiratory/Chest: Denies cough or dyspnea Gastrointestinal Gastrointestinal: Reports nausea; Denies vomiting Genitourinary Genitourinary ED: Denies dysuria or hematuria Musculoskeletal Musculoskeletal: Reports neck pain; Denies back pain Integumentary Denies abscess or rash Neurologic Neurologic: Denies headache(s) or weakness Allergic/Immunologic Allergic/Immunologic ED: Denies mouth swelling or urticaria EXAM Physical Exam Const Vital Signs: 06/14/21 13:48 06/14/21 13:54 06/14/21 16:31 Temperature 98.2 F Temperature Source Oral Pulse Rate 71 93 Respiratory Rate 18 20 H Respiratory Effort Normal Non-Labored Respiratory Pattern Normal Blood Pressure 119/75 129/83 H Blood Pressure Mean 89 98 Pulse Ox 100 99 Oxygen Delivery Method Room Air Room Air Positive well nourished and well developed General Appearance ED: well developed and NAD HEENT Reports moist mucous membranes Neck supple and no JVD Resp normal respiratory effort and clear to auscultation bilaterally Cardio regular rate, regular rhythm and no murmurs GI normal to inspection, nondistended, normoactive bowel sounds and non-tender Palpation: soft Extremity normal to inspection General Extremety ED: Negative for edema or tenderness General Extremity: Negative for edema Neuro oriented x3, CN's II-XII intact bilaterally and no sensory deficits noted Sensorium / Orientation: alert Motor Exam: strength 5/5 throughout Psych mental status grossly normal Skin no rashes or lesions noted MDM MDM MDM Narrative Medical decision making narrative: EKG was obtained. On my interpretation, it showed a normal sinus rhythm with a rate of 86. DC interval, QRS interval, and QTc intervals were all normal. [place] was normal. There are no acute ST or T wave changes. CBC shows a mild leukocytosis of 14.4. Comprehensive metabolic profile was obtained and was within normal limits. High-sensitivity troponin was normal. CTA of the chest was obtained. There is no evidence of pulmonary embolism. There is no acute cardiopulmonary process. This was read by the radiologist and reviewed by myself. Patient was advised of his findings. Patient requested something less strong for pain because he is unsure if the oxycodone is what made him pass out. Patient was given a dose of [place] here. Patient was given a prescription for a short course of [place]. Patient was instructed to follow-up with his orthopedic surgeon and primary care physician in 3 to 5 days. Patient understood and was agreeable with the plan. All questions were answered. Lab Data Attestation: I reviewed the patient's lab results. Labs: Laboratory Results - last 24 hr 06/14/21 06/14/21 11:51 11:51 WBC 14.4 H RBC 3.82 L Hgb 11.6 L Hct 34.5 L MCV 90.3 MCH 30.4 MCHC 33.6 RDW Std Deviation 45.7 H RDW Coeff of [place] 13.9 Plt Count 214 MPV 9.4 Immature Gran % (Auto) 0.500 Neut % (Auto) 77.2 H Lymph % (Auto) 9.0 L [place] % (Auto) 12.5 H Eos % (Auto) 0.2 Baso % (Auto) 0.6 Absolute Neuts (auto) 11.1 H Absolute Lymphs (auto) 1.30 Nucleated RBC % 0 Differential Comment Diff Path Review May foll Platelet Estimate ADEQUATE RBC Morphology NORM C+C Sodium 141 Potassium 3.6 Chloride 107 Carbon Dioxide 28.0 Anion Gap 6 BUN 19 H Creatinine 0.98 Estim Creat Clear Calc 71.14 Est GFR (MDRD) Af Amer 97 Est GFR (MDRD) Non-Af 80 BUN/Creatinine Ratio 19.4 Glucose 116 H Calcium 8.1 L Total Bilirubin 0.70 AST 15 ALT 13 L Alkaline Phosphatase 60 Troponin I High Sens 6 Total Protein 6.1 L Albumin 3.1 L Globulin 3.0 Albumin/Globulin Ratio 1.0 Radiography CTA PE Study: No Evidence of PE and No Evidence of Dissection Diagnostic Testing: Clinical Impression(s) from Imaging Studies Chest CTA 06/14/21 15:05 IMPRESSION: No demonstrated pulmonary embolism or arterial dissection. Electronically Signed: Farzad Soriano DO at 16:41 EST Reading Location ID and State: [facility] / [place] Tel [phone], Service support , EKG Initial EKG: Attestation: I personally reviewed and interpreted this EKG as follows: Interpretation: Sinus Rhythm (86) and No Acute Injury Pattern Prior EKG tracings: available for review Prior: Unchanged (02/05/2021) Discharge Plan Triage Chief Complaint: Syncope ED Provider: Anatoliy Epps Dx/Rx/DC Orders Clinical Impression: Syncope and collapse Instructions: ED Fainting, Uncertain Cause Prescriptions: New hydrocodone-acetaminophen [hydrocodone-acetaminophen] 1 TABLET tablet 1 tab PO Q6H PRN PRN (Reason: Pain) 3 Days Qty: 10 RF: 0 No Action losartan 50 mg tablet 50 mg PO DAILY RF: 0 montelukast 10 mg tablet 10 mg PO DAILY RF: 0 fluticasone propionate [Flonase] 50 mcg/actuation [place],Suspension 2 spray INTRANASAL DAILY RF: 0 levocetirizine [Xyzal] 5 mg Tablet 5 mg PO DAILY RF: 0 PreserVision Lutein 226 mg-200 unit -5 mg-0.8 mg Capsule 1 cap PO BID RF: 0 cholecalciferol (vitamin D3) [Vitamin D3] 25 mcg (1,000 unit) Tablet 25 mcg PO DAILY RF: 0 ckqotss-ddxm-drggf-oreg-capryl 100 mg-150 mg- 50 mg-150 mg Capsule 1 cap PO DAILY RF: 0 Trelegy Ellipta inhaler 1 puff DAILY RF: 0 Primary Care Provider: Terri Bacon Referrals: Denny Bustamante MD [NON-STAFF] - 3-5 Days Terri Bacon DO [Primary Care Provider] - 5-7 Days Disposition Disposition: Home, Self Care
[2021-06-14] MEDS: HYDROcodone Bitartrate/Apap 5/325 Tablet PO (18:27)
[2021-06-14 18:28] VITALS: BP 139/81; PULSE 85; RESP 16; O2SAT 97
[2021-06-17 14:04] LABS: Pathologist Review Reviewed
== END 2021-06-14 19:11 | disposition home or self-care (01) ==
PROVIDERS: Emergency Provider Emergency Medicine; PCP Internal Medicine; Visit Provider Emergency Medicine
DX: R55 Syncope and collapse (principal); M35.3 Polymyalgia rheumatica; I10 Essential (primary) hypertension; J45.909 Unspecified asthma, uncomplicated; G56.03 Carpal tunnel syndrome, bilateral upper limbs; M19.90 Unspecified osteoarthritis, unspecified site; Z79.899 Other long term (current) drug therapy; Z96.652 Presence of left artificial knee joint
CPT/HCPCS: 71275; 80053; 84484; 85025; 93005; 96360; 99285; Q9967; A4216

== ENCOUNTER 2021-07-17 13:30 | Outpatient (RCR) | payer MEDICARE, OTHER, SELFPAY ==
--- NOTE | 2021-06-17 12:55 | HP.PTEVAL ---
Patient's Visit Information ALEIDA HOWARD is a 70 year old M referred to Physical Therapy by Dr. Denny Bustamante MD with a diagnosis of Left TKR 06/12/2021. Date of Evaluation: 06/17/21 Physical Therapist: Henny Puga DPT - Visit Plan Frequency: 3x /Week Duration: 3 Weeks Plan: Left TKR 06/12/2021. Focus on LE and core strength/stabilization- functional mobility. Reviewed current HEP from physician. - Subjective Left TKR by Dr. Bustamante 06/12/2021-stayed overnight and then headed home. Lives with and has stairs- can go up/down with the cane- single step to enter- no problems navigating. Fully I prior to surgery. Had PMR so he has been on Prednisone for more than a year. Masked the pain in the knee- he is no longer on the Prednisone- no plans to put it back on due to having sinus surgery. Ended up in ER on Thursday from passing out- due to the medication- was sitting down so he did not fall. He reports the pain is dull and achy. The pain is located on the front of the knee. Worst: 7/10 Agg: jarring movements. Best: 0/10 Eases: rest, medication and ice machine. Sleep: some in the chair but last night he slept in his bed. No N/T in the foot or left LE. No radiating pain- all located in the anterior knee. PMHx/Meds: no changes since ED visit 06/14/21 - Objective Posture: FH, RS- can correct but does not maintain. Gait: antalgic- decreased stance on the left LE with FWW- decreased extension in knee. HR/TR: able with UE A. SLS: weight shift but unable to SLS. Stairs: asc with bilateral UE with recip pattern- poor control, Descent non recip with 2 HR. ROM: Knee: Flexion: 95 degrees Extn: 0 degrees. Strength: Core: fair minus, Hip: SLR: unable without min A, quad set visible. Knee: flexion: 17.8 Extn: 14.3 Ankle: 5/5. Girth: Patella: 46 cm 6 above: 50cm. WOMAC: 50 - Balance/Special Test Scores TUG Test Time Seconds: 17.84 - Goals Goal 1:: Patient will be I with HEP and progression Goal Time Frame: 4-6 Weeks Goal 2:: Patient will asc/desc 8 stairs with no HR Goal Time Frame: 4-6 Weeks Goal 3:: Patient will ambulate >300 feet with a normalized gait pattern and LRD. Goal Time Frame: 4-6 Weeks Goal 4:: Patient will demo 0-120 degrees of ROM in the left knee Goal Time Frame: 4-6 Weeks - Rehabilitation Potential Physical Therapy Diagnosis: Patient presents with hypomobility s/p left TKR 06/12/21. He has decreased ROM, LE and core strength/stabilization, flex and muscular endurance leading to poor posture and increased pain with ADL's. Rehabilitation Potential: Good - Anticipated Interventions Patient/Client Instruction: Educate patient on: Benefits of Fitness Program Therapeutic Exercise to Include: Strength training, Endurance training, Balance training, Coordination, Agility training, Body mechanics, Postural training, Flexibilty training, Gait and locomotor training, Neuromotor development, Dynamic Lumbar Stabilization, Scapular Strength/Stabilization For the Purpose of:: To improve muscle performance and motor function TENS: Yes Cryotherapy (ice pack, ice massage): Yes Thermo therapy (hot pack): Yes Ultrasound (thermal/non thermal): No Thank you for the opportunity to evaluate your patient. For Medicare and Medicare HMO plans, please review the plan of care and approve it. It will need to be FAXED BACK to us at [phone] for Medicare purposes. For Medicare only, by signing this I certify the plan of care. Please let me know if there are questions or concerns regarding this plan of care. Physician Signature: Date:
--- NOTE | 2021-07-17 14:10 | HP.PTREVAL ---
Dr. Denny Bustamante MD, It has been my pleasure to treat ALEIDA HOWARD over the last 13 visits for Left TKR 06/12/2021. Please see the progress note below for an update on the physical therapy plan of care! Subjective: Patient reports that he is still having pain along the lateral aspect of the knee and its stiff. When he does the exercises the knee is better for awhile. The worst thing is coming down the stairs- doesn't want to bed and slightly pain. Objective/Function: Posture: good throughout. Gait:slightly antalgic- decreased heel/toe on left LE HR/TR: able with UE A. SLS: 10 seconds Stairs: asc/desc 8 recip with no HR- decreased control with descent and less time on left LE with asc ROM: Knee: Flexion: 110 degrees Extn: 0 degrees. Strength: Core: fair minus, Hip: 4+/5Knee: flexion: 33.0 Extn: 57.4 Ankle: 5/5. Girth: Patella: 42.5 cm 6 above: 48cm. WOMAC: 27 Plan Plan: 07/17/21: Hold 4 weeks will attempt HEP- to call if questions. Left TKR 06/12/2021. Focus on LE and core strength/stabilization- functional mobility. Reviewed current HEP from physician. Balance/Gait/Functional tests - Balance/Special Test Scores Lower Extremity Functional Score: 14 TUG Test Time Seconds: 17.84 Tug Test: <20 sec.=mostly independent WOMAC Total Score: 27 WOMAC Percentage: 71.8800 Goals Goal 1:: Patient will be I with HEP and progression Goal Time Frame: 4-6 Weeks Goal Progress: Goal Met Goal 2:: Patient will asc/desc 8 stairs with no HR Goal Time Frame: 4-6 Weeks Goal Progress: Progressing Goal 3:: Patient will ambulate >300 feet with a normalized gait pattern and LRD. Goal Time Frame: 4-6 Weeks Goal Progress: Progressing Goal 4:: Patient will demo 0-120 degrees of ROM in the left knee Goal Time Frame: 4-6 Weeks Goal Progress: Progressing Anticipated Interventions Patient/Client Instruction: Educate patient on: Benefits of Fitness Program Therapeutic Exercise to Include: Strength training, Endurance training, Balance training, Coordination, Agility training, Body mechanics, Postural training, Flexibilty training, Gait and locomotor training, Neuromotor development, Dynamic Lumbar Stabilization, Scapular Strength/Stabilization For the Purpose of:: To improve muscle performance and motor function TENS: Yes Cryotherapy (ice pack, ice massage): Yes Thermo therapy (hot pack): Yes Ultrasound (thermal/non thermal): No Please do not hesitate to contact me at [phone] by phone or if you have questions or concerns regarding this new plan of care! Sincerely, ROCKY SykesT
--- NOTE | 2021-10-10 13:56 | HP.PTDCSUM ---
It has been my pleasure to treat ALEIDA HOWARD referred by Dr. Denny Bustamante MD, with the diagnosis of Left TKR 06/12/2021 for a total of 13 visit(s). Discharge Date: Please see the following information for a summary of their discharge status. Subjective: Patient reports that he is still having pain along the lateral aspect of the knee and its stiff. When he does the exercises the knee is better for awhile. The worst thing is coming down the stairs- doesn't want to bed and slightly pain. % Improvement: 60 Objective/Function: Posture: good throughout. Gait:slightly antalgic- decreased heel/toe on left LE HR/TR: able with UE A. SLS: 10 seconds Stairs: asc/desc 8 recip with no HR- decreased control with descent and less time on left LE with asc ROM: Knee: Flexion: 110 degrees Extn: 0 degrees. Strength: Core: fair minus, Hip: 4+/5Knee: flexion: 33.0 Extn: 57.4 Ankle: 5/5. Girth: Patella: 42.5 cm 6 above: 48cm. WOMAC: 27 Goal 1:: Patient will be I with HEP and progression Goal Progress: Goal Met Goal 2:: Patient will asc/desc 8 stairs with no HR Goal Progress: Progressing Goal 3:: Patient will ambulate >300 feet with a normalized gait pattern and LRD. Goal Progress: Progressing Goal 4:: Patient will demo 0-120 degrees of ROM in the left knee Goal Progress: Progressing Plan: 07/17/21: Hold 4 weeks will attempt HEP- to call if questions. Left TKR 06/12/2021. Focus on LE and core strength/stabilization- functional mobility. Reviewed current HEP from physician. If there are questions or concerns regarding this patient's physical therapy, please feel free to call me at [phone]. Thank you for the referral of this patient. Sincerely, Henny Puga, ROCKYT Balance/Gait/Functional tests - Balance/Special Test Scores Lower Extremity Functional Score: 14 TUG Test Time Seconds: 17.84 Tug Test: <20 sec.=mostly independent WOMAC Total Score: 27 WOMAC Percentage: 71.8800
== END 2021-07-17 19:00 | disposition home or self-care (01) ==
LOC: PT 13:30
PROVIDERS: PCP Internal Medicine; Referring Provider Orthopaedic Surgery; Visit Provider Orthopaedic Surgery
DX: M17.12 Unilateral primary osteoarthritis, left knee (principal)
CPT/HCPCS: 97110; 97162; 97164

== ENCOUNTER 2021-08-01 15:08 | Outpatient (CLI) | payer MEDICARE, OTHER, SELFPAY | END 2021-08-01 23:59 | disposition home or self-care (01) | LOC: LABSPEC 15:15 | PROVIDERS: PCP Internal Medicine; Referring Provider Otolaryngology; Visit Provider Otolaryngology | DX: J32.9 Chronic sinusitis, unspecified (principal) | CPT/HCPCS: 87070; 87205 ==

== ENCOUNTER → 2022-01-02 | Outpatient (CLI) | payer MEDICARE, OTHER, SELFPAY | END | disposition home or self-care (01) | LOC: LABSPEC 15:13 | PROVIDERS: PCP Internal Medicine; Referring Provider Otolaryngology; Visit Provider Otolaryngology | DX: J01.90 Acute sinusitis, unspecified (principal) | CPT/HCPCS: 87070; 87205 ==

== ENCOUNTER → 2022-04-08 | Outpatient (CLI) | payer MEDICARE, OTHER, SELFPAY ==
--- NOTE | 2022-04-08 12:57 | VDLE_ITS ---
Reason For Study: LLE PAIN Procedure LEFT This is a venous duplex using B-mode, color GSV is normal. flow and spectral Doppler. CFV is compressible, spontaneous, phasic, Exam performed in department. competent, and demonstrates normal A preliminary report was called and/or faxed augmentation. to Shelly Hale, MARTINE-C @[phone]. FV is compressible, spontaneous, phasic, competent and demonstrates normal augmentation. POP V is compressible, spontaneous, phasic, competent and demonstrates normal augmentation. T/P Trunk is compressible. PTV is compressible. LT PerV is compressible. VL/Venous Duplex US, Unilateral Interpretation Summary Deep veins of the left lower extremity are patent and compressible segmentally. There is no evidence of left lower extremity deep vein thrombosis. Valvular competence appears intac t within the proximal deep venous system on the left . The left great saphenous vein appears patent a nd compressible segmentally. Ordering Physician: Cheryl Hale Referring Physician: Terri Bacon Performed By: Veronica Dorantes, RDCS, RVT
== END | disposition home or self-care (01) ==
LOC: CVS 12:54
PROVIDERS: PCP Internal Medicine; Visit Provider Nurse Practitioner Family
DX: M79.662 Pain in left lower leg (principal)
CPT/HCPCS: 93971

== ENCOUNTER → 2022-05-01 | Outpatient (CLI) | payer MEDICARE, OTHER, SELFPAY ==
--- NOTE | 2022-05-01 08:06 | MRI_ITS ---
PROCEDURE: MRI LOWER EXTREMITY LEFT TIBIA/FIBULA REASON FOR EXAM: Male, 71 years old. LEFT CALF PAIN,DVT NEGATIVE TECHNIQUE: Standardized fat and water weighted pulse sequences were obtained in all 3 orthogonal planes. COMPARISON: None. FINDINGS: There is short segment full-thickness tear of the lateral band of the gastrocnemius tendon at the musculotendinous junction that measures 2.75 cm in diameter. The lateral band of the gastrocnemius proximal to the full-thickness tear demonstrates a high-grade sprain injury. This is also associated with mild to moderate focal intramuscular edema and swelling posterior to the tendinous injury. A small amount of serous fluid and hemorrhage tracks along the fascial plane of the gastrocnemius and underlying soleus muscle in the upper to mid aspect of the calf. The Achilles tendon is intact and normal in thickness and signal down to its attachment to the calcaneus. The remaining muscles and tendons of the lower leg are within normal limits. Mild subcutaneous edema is also present. Normal tibia and fibula, without a periosteal, cortical or cancellous marrow abnormality. There is no evidence of a fracture or bone marrow edema. Metallic artifact is present in the left knee joint. Normal remaining anterior, lateral, and posterior calf compartments, with normal muscles, crural fascia and intermuscular septa. There is no solid, cystic or lipomatous mass lesion of the subcutis adipose space. MRI/Lower Ext/No Jt/w/o IMPRESSION: 1. Short segment full-thickness tear of the lateral band of the gastrocnemius tendon at the musculotendinous junction that measures 2.75 cm in diameter. The lateral band of the gastrocnemius proximal to the full-thickness tear demonstrates a high-grade sprain injury. This is also associated with mild to moderate focal intramuscular edema and swelling posterior to the tendinous injury. 2. A small amount of serous fluid and hemorrhage tracks along the fascial plane of the gastrocnemius and underlying soleus muscle in the upper to mid aspect of the calf Electronically Signed: Chepe Castro MD at 14:51 EST ,
== END | disposition home or self-care (01) ==
LOC: MRI 08:02
PROVIDERS: PCP Internal Medicine; Visit Provider Podiatrist
DX: M62.10 Other rupture of muscle (nontraumatic), unspecified site (principal)
CPT/HCPCS: 73718

== ENCOUNTER 2022-07-22 09:49 | Emergency (ER) | payer MEDICARE, OTHER, SELFPAY ==
[2022-07-22 09:50] VITALS: BP 112/75; PULSE 80; RESP 18; TEMP 36.6; O2SAT 99; BMI 30.5
--- NOTE | 2022-07-22 10:11 | EKG12_ITS ---
Test Reason : SYNCOPE Blood Pressure : / mmHG Vent. Rate : 074 BPM Atrial Rate : 074 BPM P-R Int : 174 ms QRS Dur : 088 ms QT Int : 342 ms P-R-T Axes : 042 -27 021 degrees QTc Int : 379 ms Normal sinus rhythm Normal ECG Confirmed by CURT CHICAS, FRANK ([id number]), order editor MICHELLE REDD ([id number]) on 07/28/2022 6:50:25 AM Referred By: Confirmed By:MARIANELA ELIAS MD
--- NOTE | 2022-07-22 10:19 | EDS_ITS ---
HPI History of Present Illness Chief Complaint: Syncope Detail of Chief Complaint: Passed out in the doctor's office. Brief episode. Prior history. Informant: patient and spouse/S.O. Onset/Context/Timing Onset: Today Context: Sudden Onset Current Severity: Gone Maximum Severity: Moderate Narrative Narrative: 71-year-old male history of hypertension and asthma. On losartan. No recent med changes. Patient was not feeling well yesterday. Nothing particular. He slept a lot. He denies any headache, chest pain or shortness of breath. He denies any nausea, vomiting or diarrhea. No dysuria or melena. No fever or chills. Today he was at his eye doctor's office they were doing preop discussion with him for cataract surgery. Said he felt lightheaded and had a brief episode where he passed out. The garment manufacturer, Dr. Donovan called me that he did have a syncopal episode in the office but had a pulse the entire time. It was very brief. There is no seizure activity. No fall or trauma he was in a chair when it happened. Currently denies no complaints. He has had syncopal episodes and history. Prior similar symptoms: Yes Recent Illness/Hospitalization: No PFSH [facility] Medical History Arthritis Asthma Carpal tunnel syndrome, bilateral History of steroid therapy History of stress test Hypertension Non-smoker PMR (polymyalgia rheumatica) Home Medications losartan 50 mg tablet 50 mg PO DAILY 12/02/20 [History Last Taken 04/29/21] montelukast 10 mg tablet 10 mg PO DAILY 12/02/20 [History Last Taken Unknown] cholecalciferol (vitamin D3) 25 mcg (1,000 unit) tablet (Vitamin D3) 25 mcg PO DAILY 04/22/21 [History Last Taken Unknown] fluticasone propionate 50 mcg/actuation nasal spray,suspension 2 spray intranasal DAILY 04/22/21 [History Last Taken Unknown] levocetirizine 5 mg tablet (Xyzal) 5 mg PO DAILY 04/22/21 [History Last Taken Unknown] tumeric 100 mg-chadd 150 mg-olive 50 mg-oreg 150 mg-caprylate capsule 1 cap PO DAILY 04/22/21 [History Last Taken Unknown] vit C 226 mg-vit E 90 mg-copper 0.8 mg-zinc oxide-lutein 5 mg capsule (PreserVision Lutein) 1 cap PO BID 04/22/21 [History Last Taken Unknown] Trelegy Ellipta 1 puff DAILY 04/29/21 [History Last Taken 04/29/21] hydrocodone-acetaminophen 5-325mg 5mg-325mg 1 tab PO Q6H PRN PRN Pain 3 days #10 TABLETS 06/14/21 [Rx Last Taken Unknown] Allergy/AdvReac Type Severity Reaction Status Date / Time No Known Allergies Allergy Verified 07/22/22 09:53 Surgical History History of carpal tunnel release of both wrists History of tonsillectomy and adenoidectomy Hx of appendectomy Hx of cholecystectomy Social History Smoking Status: Never smoker ROS ROS ED ROS Narrative No recent illness. Review of Systems ROS Unobtainable: Denies due to encephalopathy Constitutional Constitutional ED: Denies chills or fever(s) Eyes Eyes: Denies blurry vision ENT ENT ED: Reports rhinorrhea; Denies ear pain or sore throat Cardiovascular Cardiovascular: Denies chest pain, palpitations or racing heartbeat Respiratory/Chest Respiratory/Chest: Denies cough or dyspnea Gastrointestinal Gastrointestinal: Denies abdominal pain, diarrhea, melena, nausea or vomiting Genitourinary Genitourinary ED: Denies dysuria or hematuria Musculoskeletal Musculoskeletal: Denies arthralgias Neurologic Neurologic: Denies headache(s) Psychiatric Psychiatric: Denies anxiety Endocrine Endocrinology: Denies cold intolerance Hematologic/Lymphatic Hematologic/Lymphatic: Reports none Allergic/Immunologic Allergic/Immunologic ED: Denies mouth swelling or tongue swelling EXAM Physical Exam Narrative Exam Narrative: 71-year-old male no acute distress. Vital signs stable afebrile. Pulse ox 9 9% on room air no signs hypoxia. H EENT exam unremarkable atraumatic. Pupils round reactive light. Moist mucous membranes. Neck nontender no lymphadenopathy. No JVD. Lungs clear to auscultation bilaterally. Heart regular rhythm rate about 80 no murmur. Abdomen is soft nontender. Normal b owel sounds no peritoneal signs. Moving all 4 extremities. Calves are nontender without edema or cords. Normal motor strength and sensation. Equal symmetrical radial pulses. Back nontender. Neurologic exam normal. NIH is 0. Normal motor strength. Normal fingertip to nose. Normal speech. Patient has a completely normal exam. Currently symptom-free. Const Vital Signs: 07/22/22 09:50 07/22/22 10:54 07/22/22 10:54 Temperature 97.9 F Temperature Source Temporal Pulse Rate 80 Pulse Rate [Lying] Pulse Rate [Sitting (for 1 minute prior to obtaining)] Pulse Rate [Standing (for 1 minute prior to obtaining)] Respiratory Rate 18 Respiratory Effort Normal Respiratory Pattern Normal Blood Pressure 112/75 Blood Pressure [Lying] Blood Pressure [Sitting (for 1 minute prior to obtaining)] Blood Pressure [Standing (for 1 minute prior to obtaining)] Blood Pressure Mean 87 Blood Pressure Mean [Lying] Blood Pressure Mean [Sitting (for 1 minute prior to obtaining)] Blood Pressure Mean [Standing (for 1 minute prior to obtaining)] Pulse Ox 99 Oxygen Delivery Method Room Air Room Air 07/22/22 11:08 Temperature Temperature Source Pulse Rate Pulse Rate [Lying] 73 Pulse Rate [Sitting (for 1 minute prior to obtaining)] 81 Pulse Rate [Standing (for 1 minute prior to obtaining)] 81 Respiratory Rate Respiratory Effort Respiratory Pattern Blood Pressure Blood Pressure [Lying] 127/76 H Blood Pressure [Sitting (for 1 minute prior to obtaining)] 129/81 H Blood Pressure [Standing (for 1 minute prior to obtaining)] 121/81 H Blood Pressure Mean Blood Pressure Mean [Lying] 93 Blood Pressure Mean [Sitting (for 1 minute prior to obtaining)] 97 Blood Pressure Mean [Standing (for 1 minute prior to obtaining)] 94 Pulse Ox Oxygen Delivery Method Positive well nourished and well developed; Negative for obese, cachectic, contractures or unkempt General Appearance ED: well developed and NAD; Negative for unkempt, cachectic, contractures, cyanotic, diaphoretic or pallor Nutritional Appearance: Negative for cachectic or obese HEENT Reports moist mucous membranes; Denies dry mucous membranes Negative for trauma or tenderness Mouth ED: No dry mucous membranes Mouth: No dry mucous membranes Eyes PERRL and EOMs intact bilaterally General Eye ED: Negative for pale conjunctiva, scleral icterus or other Neck no lymphadenopathy, supple and no JVD General: Negative for tenderness Chest Wall inspection of chest normal and palpation of chest normal Chest: Negative for other Resp normal respiratory effort and clear to auscultation bilaterally Effort and Inspection: Negative for retractions Auscultation: Negative for rales, rhonchi or wheezes Cardio regular rate, regular rhythm, S1 normal heart sound, S2 normal heart sound and no murmurs Rate: Negative for bradycardia Rhythm: Negative for abnormal rhythm GI normal to inspection, nondistended, normoactive bowel sounds, non-tender, non- distended and no masses Inspection: Negative for abdominal distention Auscultation: normoactive bowel sounds Palpation: soft; Negative for tender or guarding Bladder / Kidney Exam: No other Back/Spine no CVA tenderness General Back: Negative for CVA tenderness Cervical Spine: Negative for cervical spine tenderness Thoracic Spine / Upper Back: Negative for thoracic spinal tenderness Lumbar Spine / Lower Back: Negative for lumbar spinal tenderness Extremity normal to inspection General Extremety ED: Negative for edema or tenderness General Extremity: Negative for edema Neuro oriented x3, CN's II-XII intact bilaterally and no sensory deficits noted Sensorium / Orientation: alert; Negative for orientation impaired, lethargic or stuporous Motor Exam: strength 5/5 throughout Psych mental status grossly normal Appearance: Negative for unkempt Attitude: No agitated Mood & Affect: Negative for depressed, anxious or tearful Skin no rashes or lesions noted, no wounds and skin turgor normal General Skin Exam: elasticity normal; Negative for jaundice or pallor Lesions: No lesion noted Rashes: No rashes noted Trauma: Negative for abrasion Wounds: Negative for wounds noted MDM MDM MDM Narrative Medical decision making narrative: 71-year-old male brief syncopal event in doctor's office. Exam is normal. No cardiac history. Prior history of syncope. Exam is benign. Undergo cardiac work-up with orthostatic vital signs. We will give him IV fluids but clinically does not look dehydrated and has not had any recent vomiting or diarrhea. He is not on any diuretics. Repeat exam patient is doing well at 11:50 AM. Clinically looks well. We discussed his lab tests. Awaiting his lateral chest x-ray and COVID test. AP and lateral chest x-ray I do not see an infiltrate. COVID is negative. Orthostatic vital signs are unremarkable he will be discharged home. Patient is doing well on repeat exam at [facility]. History & Record Review Discussion w/independent historian: Patient, Family and Other (Dr. Donovan) Additional record(s) reviewed:: Prior inpatient record, Prior outpatient record, Prior ED visit and Prior labs Lab Data Attestation: I reviewed the patient's lab results. Lab results narrative: CBC normal. White count 9.9. H&H of 15.445. Platelets 186. Electrolytes show a gap of 5 BUN 23 creatinine 1.27. Glucose 126 troponin is normal at 6. Orthostatic vital signs are negative. Labs: Laboratory Results - last 24 hr 07/22/22 07/22/22 10:55 10:55 WBC 9.9 RBC 5.19 Hgb 15.4 Hct 45.3 MCV 87.3 MCH 29.7 MCHC 34.0 RDW Std Deviation 43.5 RDW Coeff of [place] 13.5 Plt Count 186 MPV 9.5 Immature Gran % (Auto) 0.300 Neut % (Auto) 73.2 H Lymph % (Auto) 9.4 L Burnett % (Auto) 16.3 H Eos % (Auto) 0.3 Baso % (Auto) 0.5 Absolute Neuts (auto) 7.3 Absolute Lymphs (auto) 0.93 Nucleated RBC % 0 Platelet Estimate ADEQUATE RBC Morphology NORM C+C Sodium 134 L Potassium 4.2 Chloride 102 Carbon Dioxide 27.0 Anion Gap 5 BUN 23 H Creatinine 1.27 Estim Creat Clear Calc 50.60 Est GFR (MDRD) Af Amer 72 Est GFR (MDRD) Non-Af 59 L BUN/Creatinine Ratio 18.1 Glucose 126 H Calcium 8.5 Troponin I High Sens 6 Radiography Chest X-Ray - ED: 1 View and Read by ED Physician Diagnostic Testing: Clinical Impression(s) from Imaging Studies Chest X-Ray 07/22/22 11:15 IMPRESSION: Lingular infiltrate. Follow-up recommended. Electronically Signed: Abe Lloyd MD at 11:06 EDT , Chest X-Ray 07/22/22 12:03 IMPRESSION: Lingular infiltrate. Electronically Signed: Abe Lloyd MD at 12:24 EDT , Chest x-ray portable was questionable lingular infiltrate but on the lateral I do not see that. AP and lateral chest x-ray, 2 views interpreted both by myself and the radiologist. Discharge Plan Triage Chief Complaint: Syncope ED Provider: Betito Louis Dx/Rx/DC Orders Clinical Impression: Syncope, History of hypertension Instructions: Causes of Syncope Prescriptions: No Action losartan 50 mg tablet 50 mg PO DAILY montelukast 10 mg tablet 10 mg PO DAILY fluticasone propionate [Flonase] 50 mcg/actuation [place],Suspension 2 spray INTRANASAL DAILY levocetirizine [Xyzal] 5 mg Tablet 5 mg PO DAILY PreserVision Lutein 226 mg-200 unit -5 mg-0.8 mg Capsule 1 cap PO BID cholecalciferol (vitamin D3) [Vitamin D3] 25 mcg (1,000 unit) Tablet 25 mcg PO DAILY qdtpgng-vwqq-dtrgf-oreg-capryl 100 mg-150 mg- 50 mg-150 mg Capsule 1 cap PO DAILY Trelegy Ellipta inhaler 1 puff DAILY hydrocodone-acetaminophen [hydrocodone-acetaminophen] 1 TABLET tablet 1 tab PO Q6H PRN PRN (Reason: Pain) 3 Days Qty: 10 0RF Primary Care Provider: Terri Bacon Referrals: Terri Bacon DO [Primary Care Provider] - 3-5 Days if not improving Activity Restrictions/Additional Instructions: Your labs are unremarkable. Follow-up with your primary care provider. Disposition Disposition: Home, Self Care
[2022-07-22] MEDS: Aspirin 81 MG TAB.CHEW 324 MG PO (10:52)
[2022-07-22 11:05] LABS: Absolute Lymphocyte Count 0.93 X10^3/uL (0.83-4.51); Absolute Neutrophil Count 7.3 X10^3/uL (2.0-7.7); Basophil# 0.05 X10^3/uL; Basophil% 0.5 % (0-1); Eosinophil# 0.03 X10^3/uL; Eosinophils% 0.3 % (0-5); Hematocrit 45.3 % (40-54); Hemoglobin 15.4 g/dL (13.0-16.5); Lymphocyte # 0.93 X10^3/ul (0.83-4.51); Lymphocyte % 9.4 % (19-41); Mean Corpuscular Hgb 29.7 pg (27.0-32.0); Mean Corpuscular Volume 87.3 fL (80-94); Mean Platelet Vol. 9.5 fl (6.2-12.0); Monocyte# 1.61 X10^3/uL; Monocyte% 16.3 % (0-10); NRBC Flagged by Analyzer 0 % (0-5); Neutrophil # 7.25 X10^3/uL (2.7-7.7); Neutrophil % 73.2 % (47-70); POSITIVE DIFFERENTIAL YES; Platelet Count 186 K/mm3 (150-450); RBC Distribution Width CV 13.5 % (11.6-14.6); RBC Distribution Width SD 43.5 fl (35.1-43.9); Red Blood Count 5.19 M/mm3 (4.6-6.2); White Blood Count 9.9 K/mm3 (4.4-11.0)
[2022-07-22 11:07] LABS: Differential Indicated SCAN CRITERIA MET
[2022-07-22 11:08] VITALS: BP 121/81; BP 127/76; BP 129/81; PULSE 73; PULSE 81
--- NOTE | 2022-07-22 11:15 | RAD_ITS ---
STUDY: X-RAY CHEST REASON FOR EXAM: Male, 71 years old. Generalized illness. Syncopal episode. TECHNIQUE: Single AP portable view of the chest. COMPARISON: Comparison is made with prior study dated December 03, 2020. FINDINGS: Lingular infiltrate. There is no demonstrated pleural abnormality. Normal size heart. Normal mediastinum and briana. Normal visualized pulmonary arteries. Normal visualized aortic arch and descending thoracic aorta. Normal visualized thoracic spine. There is degenerative osteoarthritis of the bilateral shoulders. There is no demonstrated abnormality of the visualized soft tissue structures of the upper abdomen. RAD/Chest 1 View (Portable) IMPRESSION: Lingular infiltrate. Follow-up recommended. Electronically Signed: Abe Lloyd MD at 11:06 EDT ,
[2022-07-22 11:25] LABS: Anion Gap 5 (5-15); BUN 23 mg/dL (7-18); BUN/Creat Ratio 18.1 RATIO (10-20); Calcium,Total 8.5 mg/dL (8.5-10.1); Chloride 102 mmol/L (98-107); Creatinine, Serum 1.27 mg/dL (0.70-1.30); EST Glomerular Filtration Rate 59 mL/min (>60); Est Glom Filt Rate - Afr Amer 72 mL/min (>60); Glucose 126 mg/dL (74-106); Potassium 4.2 mmol/L (3.5-5.1); Sodium Level 134 mmol/L (136-145); Troponin-I HS 6 pg/mL (3.0-78.0)
[2022-07-22 11:52] LABS: Platelet Estimate ADEQUATE (ADEQ); Red Cell Morphology NORM C+C NORMAL (NORM C&C)
--- NOTE | 2022-07-22 12:03 | RAD_ITS ---
STUDY: X-RAY CHEST REASON FOR EXAM: Male, 71 years old. Lateral view - infiltrate? TECHNIQUE: Lateral view. COMPARISON: Comparison is made with prior frontal view done earlier today. FINDINGS: There is evidence of a lingular infiltrate. There is no demonstrated pleural abnormality. Normal size heart. Normal mediastinum and briana. Normal visualized pulmonary arteries. Normal visualized aortic arch and descending thoracic aorta. There are diffuse degenerative changes of the visualized thoracic spine. Normal visualized ribs, clavicles, and shoulders. There is no demonstrated abnormality of the visualized soft tissue structures of the upper abdomen. RAD/Chest 1 View IMPRESSION: Lingular infiltrate. Electronically Signed: Abe Lloyd MD at 12:24 EDT ,
[2022-07-22 13:09] VITALS: BP 116/77; RESP 16; O2SAT 100
== END 2022-07-22 13:10 | disposition home or self-care (01) ==
PROVIDERS: Emergency Provider Emergency Medicine; PCP Internal Medicine; Visit Provider Emergency Medicine
DX: R55 Syncope and collapse (principal); I10 Essential (primary) hypertension; Z20.822 Contact with and (suspected) exposure to COVID-19; J45.909 Unspecified asthma, uncomplicated
CPT/HCPCS: 71045; 80048; 84484; 85025; 87811; 93005; 99284; A4216

== ENCOUNTER → 2022-09-16 | Outpatient (CLI) | payer MEDICARE, OTHER, SELFPAY | END | disposition home or self-care (01) | LOC: LABSPEC 16:09 | PROVIDERS: PCP Internal Medicine; Referring Provider Otolaryngology; Visit Provider Otolaryngology | DX: J32.9 Chronic sinusitis, unspecified (principal) | CPT/HCPCS: 87070; 87077; 87186; 87205 ==

== ENCOUNTER 2023-02-16 21:41 | Observation (INO) | payer MEDICARE, OTHER, SELFPAY ==
[2023-02-16 21:43] VITALS: BP 75/60; PULSE 68; RESP 18; TEMP 36.8; O2SAT 94; BMI 30.1
[2023-02-16 22:03] VITALS: BP 87/56; PULSE 66
[2023-02-16] MEDS: 0.9% Normal Saline (1000mL) 1,000 ML 1000 ML IV ×2 (22:10→22:55)
--- NOTE | 2023-02-16 22:14 | CT_ITS ---
STUDY: CT ABDOMEN AND PELVIS WITH CONTRAST REASON FOR EXAM: Male, 72 years old patient with abdominal pain hypotension. RADIATION DOSAGE (If Supplied By Facility): CTDIvol = ( 15.83 ) mGy, DLP = ( 1023.33 ) mGycm TECHNIQUE: Transaxial images were obtained from the dome of the diaphragm to the symphysis pubis without oral contrast. 100 mL of IV Isovue-370 was administered. Sagittal and coronal images were reconstructed. Individualized dose optimization techniques were used for this CT. COMPARISON: CTA of the chest dated June 14, 2021. FINDINGS: The visualized lung bases are unremarkable. The visualized portions of the heart are within normal limits. There is decreased attenuation of the liver consistent with steatosis. There is non-visualization of the gallbladder, which may be secondary to either contraction or a prior cholecystectomy. Normal spleen. Normal pancreas. Normal bilateral adrenal glands. There are bilateral renal cysts with the largest on the right measuring approximately 7.7 x 6.8 x 6.7 cm. There is no obvious hydronephrosis, hydroureter or radiopaque ureteral calculus. Normal visualized stomach. There is no obvious dilated bowel, ascites or pneumoperitoneum. Small bowel has normal appearance. There is abnormal appearing sigmoid colon with acute inflammation within the left pelvis and left lower quadrant consistent with acute diverticulitis. The colonic sharma are abnormally thickened. There are numerous sigmoid colon diverticula. The remaining colon has a grossly normal appearance with scattered diverticula. There is non-visualization of the appendix. Normal abdominal aorta. There is venous distention of the inferior vena cava (IVC). Normal retroperitoneum. Normal urinary bladder. Normal visualized prostate gland. Normal abdominal wall. There are diffuse degenerative changes of the visualized spine. There are degenerative changes of bilateral hips. CT/Abdomen/Pelvis W IV Cont ONLY IMPRESSION: Findings are consistent with acute sigmoid colon diverticulitis without abscess. Electronically Signed: Adrianne Liu MD at 0:19 EDT ,
--- NOTE | 2023-02-16 22:15 | EDS_ITS ---
HPI History of Present Illness Chief Complaint: Hypotension Informant: patient and spouse/S.O. Narrative Narrative: 72-year-old male present to the emergency room via EMS with a chief complaint of hypotension. Patient states that this weekend he was camping and felt in his normal state of health except for some slightly looser than normal bowel movements. He states it was only 1-2 times per day which is normal for him just the consistency was different. Today he was doing well. This evening he went and took a shower and shaved. When he came down to the living room he sat down in the recliner and felt completely wiped out and fell asleep. Few minutes went by the states he suddenly made a noise and, startles himself awake. He states that he felt very lightheaded and confused. Confusion has resolved but the lightheadedness is continued and they took his blood pressure which was reading low. EMS was called and they also found hypotension. He notes he has been having some discomfort in his lower abdomen particularly on the left. He states that it feels like maybe he gave himself a new hernia while working with his new camper and the hitch set up. He denies any fevers or chills. No urinary symptoms. He has nasal polyps and postnasal drip and chronically has a cough but no significant change with that. He denies any new medications other than low-dose magnesium. He takes his losartan in the morning. Prehospital EKG demonstrated a normal sinus rhythm without concerning features of ACS. Patient notes that he has had colonoscopy within the year with Dr. Whaley at [facility]. [facility] Medical History Arthritis Asthma Carpal tunnel syndrome, bilateral History of steroid therapy History of stress test Hypertension Non-smoker PMR (polymyalgia rheumatica) Home Medications losartan 50 mg tablet 50 mg PO DAILY 12/02/20 [History Last Taken 04/29/21] montelukast 10 mg tablet 10 mg PO DAILY 12/02/20 [History Last Taken Unknown] cholecalciferol (vitamin D3) 25 mcg (1,000 unit) tablet (Vitamin D3) 25 mcg PO DAILY 04/22/21 [History Last Taken Unknown] fluticasone propionate 50 mcg/actuation nasal spray,suspension 2 spray intranasal DAILY 04/22/21 [History Last Taken Unknown] levocetirizine 5 mg tablet (Xyzal) 5 mg PO DAILY 04/22/21 [History Last Taken Unknown] tumeric 100 mg-chadd 150 mg-olive 50 mg-oreg 150 mg-caprylate capsule 1 cap PO DAILY 04/22/21 [History Last Taken Unknown] vit C 226 mg-vit E 90 mg-copper 0.8 mg-zinc oxide-lutein 5 mg capsule (PreserVision Lutein) 1 cap PO BID 04/22/21 [History Last Taken Unknown] Trelegy Ellipta 1 puff DAILY 04/29/21 [History Last Taken 04/29/21] hydrocodone-acetaminophen 5-325mg 5mg-325mg 1 tab PO Q6H PRN PRN Pain 3 days #10 TABLETS 06/14/21 [Rx Last Taken Unknown] Allergy/AdvReac Type Severity Reaction Status Date / Time No Known Allergies Allergy Verified 02/16/23 22:02 Surgical History History of carpal tunnel release of both wrists History of tonsillectomy and adenoidectomy Hx of appendectomy Hx of cholecystectomy Social History Smoking Status: Never smoker ROS ROS ED ROS Narrative Lightheadedness fatigue Constitutional Constitutional ED: Denies chills, fever(s) or weight loss Eyes Eyes: Denies change in vision or diplopia ENT ENT ED: Denies ear pain, rhinorrhea or sore throat Cardiovascular Cardiovascular: Denies chest pain, orthopnea, palpitations or racing heartbeat Respiratory/Chest Respiratory/Chest: Denies cough, dyspnea or orthopnea Gastrointestinal Gastrointestinal: Reports abdominal pain; Denies constipation, diarrhea, melena, nausea or vomiting Genitourinary Genitourinary ED: Denies dysuria, hematuria or urinary frequency Musculoskeletal Musculoskeletal: Denies arthralgias, back pain, myalgias or neck pain Integumentary Denies abscess or rash Neurologic Neurologic: Reports other; Denies headache(s) or weakness Psychiatric Psychiatric: Denies anxiety, depression, suicidal ideation or suicidal thoughts Endocrine Endocrinology: Denies polydipsia, polyphagia or polyuria Allergic/Immunologic Allergic/Immunologic ED: Denies mouth swelling, tongue swelling or urticaria EXAM Physical Exam Const Vital Signs: 02/16/23 21:43 02/16/23 22:03 02/16/23 22:03 Temperature 98.2 F Temperature Source Oral Pulse Rate 68 66 Respiratory Rate 18 Respiratory Effort Normal Non-Labored Respiratory Pattern Normal Blood Pressure 75/60 L 87/56 L Blood Pressure Mean 65 66 Pulse Ox 94 Oxygen Delivery Method Room Air 02/16/23 22:57 02/16/23 23:00 02/16/23 23:30 Temperature Temperature Source Pulse Rate 66 67 66 Respiratory Rate 18 18 18 Respiratory Effort Respiratory Pattern Blood Pressure 88/65 L 95/58 L 107/69 Blood Pressure Mean 72 70 81 Pulse Ox 97 97 97 Oxygen Delivery Method Room Air Room Air Room Air 02/17/23 00:00 02/17/23 00:30 02/17/23 01:00 Temperature Temperature Source Pulse Rate 71 68 69 Respiratory Rate 18 18 18 Respiratory Effort Respiratory Pattern Blood Pressure 107/72 120/68 116/81 H Blood Pressure Mean 83 85 92 Pulse Ox 97 95 97 Oxygen Delivery Method Room Air Room Air Room Air Positive well nourished and well developed General Appearance ED: well developed HEENT Reports normocephalic, head/scalp atraumatic and moist mucous membranes Eyes PERRL and EOMs intact bilaterally Neck no lymphadenopathy, supple and no JVD Resp normal respiratory effort and clear to auscultation bilaterally Cardio regular rate, regular rhythm and no murmurs GI Palpation: soft and tender LLQ, RLQ, periumbilical and suprapubic; Negative for guarding or rebound tenderness present Back/Spine no CVA tenderness and normal ROM Extremity normal to inspection General Extremety ED: Negative for edema General Extremity: Negative for edema Neuro oriented x3 and CN's II-XII intact bilaterally Sensorium / Orientation: alert Motor Exam: strength 5/5 throughout Psych mental status grossly normal Mood & Affect: Negative for depressed or tearful Skin no rashes or lesions noted and no wounds MDM MDM MDM Narrative Medical decision making narrative: A quick bedside ultrasound does not demonstrate a a abdominal aortic aneurysm. White count returns at 12.9 hemoglobin 11.7. Coags normal. Lactic acid normal. BMP with a BUN of 20 creatinine 1.29. Glucose 145. Unknown urine also. Because of the abdominal pain and hypotension a CT of the abdomen pelvis was obtained which demonstrated sigmoid diverticulitis without abscess or perforation. Patient had 2 L of normal saline as well as Zosyn IV. His blood pressure has improved and he is overall feeling better. Because of the hypotension and how long it persisted and is diverticulitis if do think it is very reasonable that we observe him in the hospital. History & Record Review Discussion w/independent historian: Patient and Significant other Additional record(s) reviewed:: Prior inpatient record Lab Data Attestation: I reviewed the patient's lab results. Labs: Laboratory Results - last 24 hr 02/16/23 02/17/23 22:32 00:26 WBC 12.9 H RBC 4.04 L Hgb 11.7 L Hct 37.1 L MCV 91.8 MCH 29.0 MCHC 31.5 L RDW Std Deviation 46.2 H RDW Coeff of [place] 13.5 Plt Count TNP MPV 11.7 Immature Gran % (Auto) 0.400 Neut % (Auto) 74.1 H Lymph % (Auto) 13.7 L [place] % (Auto) 9.9 Eos % (Auto) 1.5 Baso % (Auto) 0.4 Absolute Neuts (auto) 9.6 H Absolute Lymphs (auto) 1.76 Nucleated RBC % 0 Platelet Estimate ADEQUATE Anisocytosis RARE Macrocytosis RARE PT 15.2 H INR 1.2 APTT 34.9 Sodium 137 Potassium 4.0 Chloride 107 Carbon Dioxide 25.0 Anion Gap 5 BUN 20 H Creatinine 1.29 Estim Creat Clear Calc 49.11 Est GFR (MDRD) Af Amer 71 Est GFR (MDRD) Non-Af 58 L BUN/Creatinine Ratio 15.5 Glucose 145 H Lactic Acid 1.1 Calcium 8.4 L Total Bilirubin 0.80 Direct Bilirubin 0.18 AST 24 ALT 16 Alkaline Phosphatase 63 Troponin I High Sens 6 Total Protein 6.2 L Albumin 2.9 L Globulin 3.3 Lipase 52 Urine Color Yellow Urine Clarity Clear Urine pH 7.0 Ur Specific [place] 1.005 Urine Protein 15 H Urine Glucose (UA) Normal Urine Ketones Negative Urine Occult Blood 25 H Urine Nitrite Negative Urine Bilirubin Negative Urine Urobilinogen Normal Ur Leukocyte Esterase Negative Urine RBC 0 SEEN Urine WBC 0 SEEN Ur Squamous Epith Cells 0 SEEN Urine Bacteria 0 SEEN Urine Mucus 0 SEEN Radiography Diagnostic Testing: Clinical Impression(s) from Imaging Studies Abdomen/Pelvis CT 02/16/23 22:14 IMPRESSION: Findings are consistent with acute sigmoid colon diverticulitis without abscess. Electronically Signed: Adrianne Liu MD at 0:19 EDT , Chest X-Ray 02/16/23 22:55 IMPRESSION: Suspect early or resolving left lower lobe pneumonia. Electronically Signed: Jeffrey Leach MD at 23:49 EDT , EKG Initial EKG: Attestation: I personally reviewed and interpreted this EKG as follows: Comments: Normal sinus rhythm with a ventricular rate of 67 bpm. No concerning features of ACS noted. Management Discussion w/another healthcare provider: Hospitalist Discharge Plan Dx/Rx/DC Orders Clinical Impression: Acute hypotension, Diverticulitis, Abdominal pain Disposition Disposition: Acute Care Hospital [facility]
[2023-02-16 22:49] LABS: Absolute Lymphocyte Count 1.76 X10^3/uL (0.83-4.51); Absolute Neutrophil Count 9.6 X10^3/uL (2.0-7.7); Basophil# 0.05 X10^3/uL; Basophil% 0.4 % (0-1); Eosinophil# 0.19 X10^3/uL; Eosinophils% 1.5 % (0-5); Hematocrit 37.1 % (40-54); Hemoglobin 11.7 g/dL (13.0-16.5); Lymphocyte # 1.76 X10^3/ul (0.83-4.51); Lymphocyte % 13.7 % (19-41); Mean Corp Hgb Conc 31.5 g/dL (32-36); Mean Corpuscular Volume 91.8 fL (80-94); Mean Platelet Vol. 11.7 fl (6.2-12.0); Monocyte# 1.28 X10^3/uL; Monocyte% 9.9 % (0-10); NRBC Flagged by Analyzer 0 % (0-5); Neutrophil # 9.55 X10^3/uL (2.7-7.7); Neutrophil % 74.1 % (47-70); POSITIVE COUNT YES; RBC Distribution Width CV 13.5 % (11.6-14.6); RBC Distribution Width SD 46.2 fl (35.1-43.9); Red Blood Count 4.04 M/mm3 (4.6-6.2); White Blood Count 12.9 K/mm3 (4.4-11.0)
--- NOTE | 2023-02-16 22:55 | RAD_ITS ---
STUDY: X-RAY CHEST REASON FOR EXAM: Male, 72 years old. hypotension cough TECHNIQUE: Single AP portable view of the chest. COMPARISON: 09/11/2022 FINDINGS: Faint alveolar opacity in the lower left lung consistent with early or resolving left lower lobe pneumonia. There is no demonstrated pleural abnormality. Normal size heart. Normal mediastinum and briana. Normal visualized pulmonary arteries. Normal visualized aortic arch and descending thoracic aorta. Normal visualized thoracic spine. Normal visualized ribs, clavicles, and shoulders. There is no demonstrated abnormality of the visualized soft tissue structures of the upper abdomen. RAD/Chest 1 View (Portable) IMPRESSION: Suspect early or resolving left lower lobe pneumonia. Electronically Signed: Jeffrey Leach MD at 23:49 EDT ,
[2023-02-16 22:57] VITALS: BP 88/65; PULSE 66; RESP 18; O2SAT 97
[2023-02-16 23:00] VITALS: BP 95/58; PULSE 67; RESP 18; O2SAT 97
[2023-02-16 23:01] LABS: Differential Indicated SCAN CRITERIA MET
[2023-02-16 23:02] LABS: International Normalized Ratio 1.2; Prothrombin Time (Protime)PT. 15.2 SECONDS (11.7-14.9)
[2023-02-16 23:05] LABS: Partial Thromboplast Time 34.9 Seconds (24.1-36.2)
[2023-02-16 23:10] LABS: AST(SGOT) 24 U/L (15-37); Alanine Aminotransfer ALT/SGPT 16 U/L (16-61); Albumin, Serum 2.9 g/dL (3.2-5.0); Alkaline Phosphatase 63 U/L (45-117); Anion Gap 5 (5-15); BUN 20 mg/dL (7-18); BUN/Creat Ratio 15.5 RATIO (10-20); Bilirubin, Direct 0.18 mg/dL (0.00-0.30); Calcium,Total 8.4 mg/dL (8.5-10.1); Chloride 107 mmol/L (98-107); Creatinine, Serum 1.29 mg/dL (0.70-1.30); EST Glomerular Filtration Rate 58 mL/min (>60); Est Glom Filt Rate - Afr Amer 71 mL/min (>60); Estimated Creatinine Clearance 49.11 ml/min; Globulin 3.3 g/dL (2.2-4.2); Glucose 145 mg/dL (74-106); Lipase 52 U/L (13-75); Protein, Total 6.2 g/dL (6.4-8.2); Sodium Level 137 mmol/L (136-145); Troponin-I HS 6 pg/mL (3.0-78.0)
[2023-02-16 23:30] VITALS: BP 107/69; PULSE 66; RESP 18; O2SAT 97
[2023-02-16 23:31] LABS: Anisocytosis RARE; Macrocytosis RARE; Platelet Estimate ADEQUATE (ADEQ)
[2023-02-16 23:34] LABS: Lactic Acid 1.1 mmol/L (0.4-1.9)
[2023-02-17] VITALS (9 sets, daily range): BP systolic 107–130; BP diastolic 68–86; PULSE 64–75; RESP 14–18; TEMP 36.4–36.7; O2SAT 95–100; BMI 29.5
[2023-02-17] MEDS: 0.9% Normal Saline (1000mL) 1,000 ML 250 ML IV (00:16)
[2023-02-17] MEDS: Piperacil/Tazobactam 4.5 GM in 0.9% Normal Saline (100mL MB+) 100 ML IV (00:16)
[2023-02-17 00:34] LABS: Bacteria 0 SEEN /hpf (None Seen); Color, Urine Yellow (Yellow); Glucose, Dipstick Normal (Normal); Ketone-Dipstick Negative (Negative); Leukocyte Esterase-Dipstick Negative /ul (Negative); Mucous, Urine 0 SEEN /hpf (<or=2+); Nitrite-Dipstick Negative (Negative); Occult Blood-Urine 25 /ul (Negative); Protein-Dipstick 15 mg/dl (Negative); Red Blood Cells-Urine 0 SEEN /hpf (0-5); Specific Gravity, Urine 1.005 (1.002-1.030); Squamous Epithelial Cells - UA 0 SEEN /hpf (0-5); Urine Bilirubin Dipstick Negative (Negative); Urine Clarity Clear (Clear); Urine Urobilinogen Normal (Normal); White Blood Cells 0 SEEN /hpf (0-5)
--- NOTE | 2023-02-17 01:30 | PCM.HP.STD ---
HPI - General General Date of Admission: 02/17/23 Date of Service: 02/17/23 Chief Complaint: Hypotension noted at home. HPI Narrative ALEIDA HOWARD, is a 72 M who who returned from [facility] in [place] felt very tired and suddenly went into sleep. When she woke up he said he is not feeling good, dizzy lightheaded. He felt also disoriented and mild confused. His were surprised therefore she checked the blood pressure and found very low, systolic blood pressure 65. Patient use her blood pressure is 125/70. He denies nausea vomiting diarrhea but has mild left lower quadrant pain or more like discomfort. He denies taking outside water or food during [facility]. He has some loose bowel movement otherwise no blood in the stool. Denies any fever or chills. Twelve-lead EKG was done which is normal sinus rhythm 67 bpm. QTc 399 ms. In ED, patient's blood pressure was found low 75/60 and had 2 L of IV fluid bolus and blood pressure improved to 116/81. CT abdomen was done which shows sigmoid diverticulitis. Patient is a started on IV Zosyn. He does not remember having diverticulitis in the past. Labs, CT abdomen and EKG reviewed and discussed in assessment and plan. Family history: His father had colon cancer. [facility] Medical History Arthritis Asthma Carpal tunnel syndrome, bilateral History of steroid therapy History of stress test Hypertension Non-smoker PMR (polymyalgia rheumatica) Home Medications losartan 50 mg tablet 50 mg PO DAILY 12/02/20 [History Last Taken 04/29/21] montelukast 10 mg tablet 10 mg PO DAILY 12/02/20 [History Last Taken Unknown] cholecalciferol (vitamin D3) 25 mcg (1,000 unit) tablet (Vitamin D3) 25 mcg PO DAILY 04/22/21 [History Last Taken Unknown] fluticasone propionate 50 mcg/actuation nasal spray,suspension 2 spray intranasal DAILY 04/22/21 [History Last Taken Unknown] levocetirizine 5 mg tablet (Xyzal) 5 mg PO DAILY 04/22/21 [History Last Taken Unknown] tumeric 100 mg-chadd 150 mg-olive 50 mg-oreg 150 mg-caprylate capsule 1 cap PO DAILY 04/22/21 [History Last Taken Unknown] vit C 226 mg-vit E 90 mg-copper 0.8 mg-zinc oxide-lutein 5 mg capsule (PreserVision Lutein) 1 cap PO BID 04/22/21 [History Last Taken Unknown] Trelegy Ellipta 1 puff DAILY 04/29/21 [History Last Taken 04/29/21] hydrocodone-acetaminophen 5-325mg 5mg-325mg 1 tab PO Q6H PRN PRN Pain 3 days #10 TABLETS 06/14/21 [Rx Last Taken Unknown] Allergy/AdvReac Type Severity Reaction Status Date / Time No Known Allergies Allergy Verified 02/16/23 22:02 Surgical History History of carpal tunnel release of both wrists History of tonsillectomy and adenoidectomy Hx of appendectomy Hx of cholecystectomy Social History Smoking Status: Never smoker ROS ROS Narrative Constitutional: Reports severe fatigue and dizziness lightheadedness and hypotension. No fever. HEENT: Reports systems reviewed and no addt'l complaints, except as documented Respiratory/Chest: No acute shortness of breath or respiratory distress or wheezing. CVS: No chest pressure or tightness. Gastrointestinal: Denies coffee ground emesis, hematemesis or vomiting. Rest as described in HPI Genitourinary: Denies burning urination or new urinary tract symptoms Musculoskeletal: Chronic polymyalgia rheumatica. Denies acute joint pain or limited range of motion. No acute injury Neurologic: Denies seizure-like symptoms. No acute strokelike symptoms. skin: No ulcer. No rash Endocrinology: Reports systems reviewed and no addt'l complaints, except as documented Hematologic/Lymphatic: Reports systems reviewed and no addt'l complaints, except as documented Rest 14 ROS are negative except as mentioned in HPI Vital Signs Vital Signs Vital Signs: 02/16/23 21:43 02/16/23 22:03 02/16/23 22:03 Temperature 98.2 F Temperature Source Oral Pulse Rate 68 66 Respiratory Rate 18 Respiratory Effort Normal Non-Labored Respiratory Pattern Normal Blood Pressure 75/60 L 87/56 L Blood Pressure Mean 65 66 Pulse Ox 94 Oxygen Delivery Method Room Air 02/16/23 22:57 02/16/23 23:00 02/16/23 23:30 Temperature Temperature Source Pulse Rate 66 67 66 Respiratory Rate 18 18 18 Respiratory Effort Respiratory Pattern Blood Pressure 88/65 L 95/58 L 107/69 Blood Pressure Mean 72 70 81 Pulse Ox 97 97 97 Oxygen Delivery Method Room Air Room Air Room Air 02/17/23 00:00 02/17/23 00:30 02/17/23 01:00 Temperature Temperature Source Pulse Rate 71 68 69 Respiratory Rate 18 18 18 Respiratory Effort Respiratory Pattern Blood Pressure 107/72 120/68 116/81 H Blood Pressure Mean 83 85 92 Pulse Ox 97 95 97 Oxygen Delivery Method Room Air Room Air Room Air Weight Weight: 192 lb 3.889 oz Body Mass Index (BMI) 30.1 Physical Exam Narrative General: Alert, Oriented x3, Cooperative HEENT: Atraumatic, PERRLA, EOMI, Normocephalic Oral: Oral mucosa very dry no Gingival or Mucosal Lesions/ Ulcerations Neck: Supple, No JVD, Negative Carotid Bruits Lungs: Air entry diminished in bilateral lung bases. No crepitation/rhonchi Cardiovascular: Regular rate, Regular Rhythm, Normal S1, Normal S2, No murmurs Abdomen: Soft, mild tenderness over left lower quadrant. Bowel sounds sluggish over LLQ. Non-Distended. No palpable mass. : No renal angle tenderness. No suprapubic tenderness. Extremities: No edema, Capillary Refill Less than 3 Seconds Skin: No rashes, No breakdown Musculoskeletal: No Tenderness to Palpation of Joints or Extremities Neurological: Cranial nerves II-XII grossly intact, DTR 2+/4. No acute focal neurological deficit. Psych/Mental Status: Normal Affect, Appropriate. Results Lab / Micro Data 02/16/23 22:32 02/16/23 22:32 Labs: Laboratory Results - last 24 hr 02/16/23 22:32: WBC 12.9 H, RBC 4.04 L, Hgb 11.7 L, Hct 37.1 L, MCV 91.8, MCH 29.0, MCHC 31.5 L, RDW Std Deviation 46.2 H, RDW Coeff of [place] 13.5, Plt Count TNP, MPV 11.7, Immature Gran % (Auto) 0.400, Neut % (Auto) 74.1 H, Lymph % (Auto) 13.7 L, [place] % (Auto) 9.9, Eos % (Auto) 1.5, Baso % (Auto) 0.4, Absolute Neuts (auto) 9.6 H, Absolute Lymphs (auto) 1.76, Nucleated RBC % 0, Platelet Estimate ADEQUATE, Anisocytosis RARE, Macrocytosis RARE, PT 15.2 H, INR 1.2, APTT 34.9, Sodium 137, Potassium 4.0, Chloride 107, Carbon Dioxide 25.0, Anion Gap 5, BUN 20 H, Creatinine 1.29, Estim Creat Clear Calc 49.11, Est GFR (MDRD) Af Amer 71, Est GFR (MDRD) Non-Af 58 L, BUN/Creatinine Ratio 15.5, Glucose 145 H, Lactic Acid 1.1, Calcium 8.4 L, Total Bilirubin 0.80, Direct Bilirubin 0.18, AST 24, ALT 16, Alkaline Phosphatase 63, Troponin I High Sens 6, Total Protein 6.2 L, Albumin 2.9 L, Globulin 3.3, Lipase 52 02/17/23 00:26: Urine Color Yellow, Urine Clarity Clear, Urine pH 7.0, Ur Specific [place] 1.005, Urine Protein 15 H, Urine Glucose (UA) Normal, Urine Ketones Negative, Urine Occult Blood 25 H, Urine Nitrite Negative, Urine Bilirubin Negative, Urine Urobilinogen Normal, Ur Leukocyte Esterase Negative, Urine RBC 0 SEEN, Urine WBC 0 SEEN, Ur Squamous Epith Cells 0 SEEN, Urine Bacteria 0 SEEN, Urine Mucus 0 SEEN Radiology Impression Abdomen/Pelvis CT 02/16/23 22:14 IMPRESSION: Findings are consistent with acute sigmoid colon diverticulitis without abscess. Electronically Signed: Adrianne Liu MD at 0:19 EDT Reading Location ID and State: [facility] / [place] , Service support , Chest X-Ray 02/16/23 22:55 IMPRESSION: Suspect early or resolving left lower lobe pneumonia. Electronically Signed: Jeffrey Leach MD at 23:49 EDT , Assessment & Plan Assessment/Plan (1) Diverticulitis: (2) Acute hypotension: PLAN: Plan 1. Acute hypotension probably related to abdominal pain/diverticulitis: Patient denies obvious external loss of fluid including vomiting or diarrhea he had mild loose bowel movement but not very significant to explain hypotension. Patient was well resuscitated with 2 L normal saline. His blood pressure is improved. Continue IV fluid Ringer lactate 150 mill per hour. 2. Sigmoid diverticulitis accompanied with hypotension but no abscess: Patient is started on IV Zosyn. Monitor pain. CT abdomen individually reviewed and shows infiltrates around pericolonic area. Patient had colonoscopy by Dr. Whaley in April 2022 and found several polyps which was removed but were benign as per the patient. On colonoscopy surveillance, repeat in 3 years. His father had colon cancer. 3. Benign hypertension: Patient on losartan at home. Hold it 4. Chronic stable asthma: Patient is on Trelegy Ellipta montelukast. Also on Flonase nasal drip. DuoNeb every 4 hourly as needed for shortness of breath. 5. History of polymyalgia rheumatica: Not a current issue or active problem. DVT prophylaxis: Moderate to high risk, enoxaparin 40 mg subcu daily. Discontinue if platelet count drops less than 50,000 or hemoglobin less than 8 g% Living will/advanced directive/end of life care: Patient does not have living will or advanced directive. He does not have designated power of patent prosecution attorney for health but is next of kin. She is sitting near the bedside. After discussion of benefits/risks procedures involved with full code, DNR CC arrest and DNR CC, the patient and his opted for full code. Patient does want artificial life support including intubation, tube feed, ventilator and/chest compression, central venous catheter, vasopressor and DC shock if needed Total time spent in [id number] encounter in discussion of advanced directive 17 minutes. Of diverticulitis Laboratory Results 02/16/23 22:32: WBC 12.9 H, RBC 4.04 L, Hgb 11.7 L, Hct 37.1 L, MCV 91.8, MCH 29.0, MCHC 31.5 L, RDW Std Deviation 46.2 H, RDW Coeff of [place] 13.5, Plt Count TNP, MPV 11.7, Immature Gran % (Auto) 0.400, Neut % (Auto) 74.1 H, Lymph % (Auto) 13.7 L, [place] % (Auto) 9.9, Eos % (Auto) 1.5, Baso % (Auto) 0.4, Absolute Neuts (auto) 9.6 H, Absolute Lymphs (auto) 1.76, Nucleated RBC % 0, Platelet Estimate ADEQUATE, Anisocytosis RARE, Macrocytosis RARE, PT 15.2 H, INR 1.2, APTT 34.9, Sodium 137, Potassium 4.0, Chloride 107, Carbon Dioxide 25.0, Anion Gap 5, BUN 20 H, Creatinine 1.29, Estim Creat Clear Calc 49.11, Est GFR (MDRD) Af Amer 71, Est GFR (MDRD) Non-Af 58 L, BUN/Creatinine Ratio 15.5, Glucose 145 H, Lactic Acid 1.1, Calcium 8.4 L, Total Bilirubin 0.80, Direct Bilirubin 0.18, AST 24, ALT 16, Alkaline Phosphatase 63, Troponin I High Sens 6, Total Protein 6.2 L, Albumin 2.9 L, Globulin 3.3, Lipase 52 02/17/23 00:26: Urine Color Yellow, Urine Clarity Clear, Urine pH 7.0, Ur Specific [place] 1.005, Urine Protein 15 H, Urine Glucose (UA) Normal, Urine Ketones Negative, Urine Occult Blood 25 H, Urine Nitrite Negative, Urine Bilirubin Negative, Urine Urobilinogen Normal, Ur Leukocyte Esterase Negative, Urine RBC 0 SEEN, Urine WBC 0 SEEN, Ur Squamous Epith Cells 0 SEEN, Urine Bacteria 0 SEEN, Urine Mucus 0 SEEN Clinical Impression(s) from Imaging Studies Abdomen/Pelvis CT 02/16/23 22:14 IMPRESSION: Findings are consistent with acute sigmoid colon diverticulitis without abscess. Chest X-Ray 02/16/23 22:55 IMPRESSION: Suspect early or resolving left lower lobe pneumonia. Charges/Coding Visit Charges Inpatient E&M: 84972 Init Hosp L3 Procedures Hospitalists Procedures: 33394 Advncd Care Plan 30 Min
[2023-02-17 02:52] LABS: Magnesium 2.5 mg/dL (1.6-2.6)
[2023-02-17] MEDS: Lactated Ringers 1,000 ML 150 ML IV ×2 (04:23→11:02)
[2023-02-17] MEDS: Enoxaparin 40 MG/0.4 ML Syringe SC (05:20)
[2023-02-17] MEDS: Piperacil/Tazobactam 3.375 GM in 0.9% Normal Saline (50mL MB+) 50 ML IV (05:20)
[2023-02-17] MEDS: 0.9% Saline Lock 10 ML Syringe IV (05:20)
[2023-02-17 05:57] LABS: Absolute Lymphocyte Count 1.67 X10^3/uL (0.83-4.51); Absolute Neutrophil Count 7.8 X10^3/uL (2.0-7.7); Basophil# 0.06 X10^3/uL; Basophil% 0.5 % (0-1); Eosinophil# 0.25 X10^3/uL; Eosinophils% 2.3 % (0-5); Hematocrit 36.5 % (40-54); Hemoglobin 11.7 g/dL (13.0-16.5); Lymphocyte # 1.67 X10^3/ul (0.83-4.51); Lymphocyte % 15.3 % (19-41); Mean Corp Hgb Conc 32.1 g/dL (32-36); Mean Corpuscular Hgb 29.2 pg (27.0-32.0); Mean Platelet Vol. 10.1 fl (6.2-12.0); Monocyte% 10.1 % (0-10); NRBC Flagged by Analyzer 0 % (0-5); Neutrophil # 7.81 X10^3/uL (2.7-7.7); Neutrophil % 71.4 % (47-70); Platelet Count 185 K/mm3 (150-450); RBC Distribution Width CV 13.4 % (11.6-14.6); RBC Distribution Width SD 45.5 fl (35.1-43.9); Red Blood Count 4.01 M/mm3 (4.6-6.2); White Blood Count 10.9 K/mm3 (4.4-11.0)
--- NOTE | 2023-02-17 13:41 | PCM.DC.SUM ---
Providers Date of Admission: 02/17/23 Date of Discharge: 02/17/23 Primary Care Physician: Dr. Terri Bacon DO Reason For Visit: hypotension Diagnosis Discharge Diagnosis (1) Diverticulitis: Status: Acute Code(s): K57.92 - Diverticulitis of intestine, part unspecified, without perforation or abscess without bleeding (2) Acute hypotension: Status: Acute Code(s): I95.9 - Hypotension, unspecified Plan #Sigmoid diverticulitis without abscess #Acute hypotension likely secondary to dehydration resolved with fluids #Chronic benign essential hypertension at home meds held due to above #Chronic stable asthma Medications at Discharge Home Medications losartan 50 mg tablet 50 mg PO DAILY 12/02/20 montelukast 10 mg tablet 10 mg PO DAILY 12/02/20 cholecalciferol (vitamin D3) 25 mcg (1,000 unit) tablet (Vitamin D3) 25 mcg PO DAILY 04/22/21 fluticasone propionate 50 mcg/actuation nasal spray,suspension 2 spray intranasal DAILY 04/22/21 tumeric 100 mg-chadd 150 mg-olive 50 mg-oreg 150 mg-caprylate capsule 1 cap PO DAILY 04/22/21 albuterol sulfate 90 mcg/actuation aerosol inhaler (Ventolin HFA) 1 puff inhalation Q4H PRN shortness of breath or wheezing 02/17/23 azelastine 137 mcg (0.1 %) nasal spray aerosol 1 spray intranasal DAILY 02/17/23 ciprofloxacin HCl 500 mg tablet 500 mg PO Q12H 9 days #19 tabs 02/17/23 metronidazole 500 mg tablet 500 mg PO TID 9 days #28 tabs 02/17/23 Hospital Course Summary of Care Provided Minutes Spent on Discharge: 32 Hospital Course: Per HPI: ALEIDA HOWARD, is a 72 M who who returned from [facility] in [place] felt very tired and suddenly went into sleep. When she woke up he said he is not feeling good, dizzy lightheaded. He felt also disoriented and mild confused. His were surprised therefore she checked the blood pressure and found very low, systolic blood pressure 65. Patient use her blood pressure is 125/70. He denies nausea vomiting diarrhea but has mild left lower quadrant pain or more like discomfort. He denies taking outside water or food during [facility]. He has some loose bowel movement otherwise no blood in the stool. Denies any fever or chills. Twelve-lead EKG was done which is normal sinus rhythm 67 bpm. QTc 399 ms. In ED, patient's blood pressure was found low 75/60 and had 2 L of IV fluid bolus and blood pressure improved to 116/81. CT abdomen was done which shows sigmoid diverticulitis. Patient is a started on IV Zosyn. He does not remember having diverticulitis in the past. Labs, CT abdomen and EKG reviewed and discussed in assessment and plan. Family history: His father had colon cancer. INTERVAL HISTORY: Patient did very well on antibiotics and fluids, tolerated diet, no significant pain and maintaining nutrition/hydration. Patient stable for outpatient discharge on antibiotics. Patient and verbalized understanding Physical Exam Narrative General: Alert, oriented, no apparent distress HEENT: Atraumatic, normocephalic Eyes: Anicteric, normal conjunctiva, extraocular movements grossly intact Neck: Supple Respiratory: Clear to auscultation bilaterally, normal respiratory effort Cardiovascular: Regular rate and rhythm GI: Soft, slightly tender in left lower quadrant without rebound, guarding, rigidity Extremities: No edema Musculoskeletal: Moving all extremities Neuro: No overt focal neurological deficits Skin: No rashes appreciated Psych: Cooperative Weight / BMI Weight Weight: 85.7 kg Body Mass Index (BMI) 29.5 ABG / Lab / Microbiology Data 02/17/23 05:20 02/16/23 22:32 Laboratory: Laboratory Results - last 24 hr 02/16/23 22:32: WBC 12.9 H, RBC 4.04 L, Hgb 11.7 L, Hct 37.1 L, MCV 91.8, MCH 29.0, MCHC 31.5 L, RDW Std Deviation 46.2 H, RDW Coeff of [place] 13.5, Plt Count TNP, MPV 11.7, Immature Gran % (Auto) 0.400, Neut % (Auto) 74.1 H, Lymph % (Auto) 13.7 L, [place] % (Auto) 9.9, Eos % (Auto) 1.5, Baso % (Auto) 0.4, Absolute Neuts (auto) 9.6 H, Absolute Lymphs (auto) 1.76, Nucleated RBC % 0, Platelet Estimate ADEQUATE, Anisocytosis RARE, Macrocytosis RARE, PT 15.2 H, INR 1.2, APTT 34.9, Sodium 137, Potassium 4.0, Chloride 107, Carbon Dioxide 25.0, Anion Gap 5, BUN 20 H, Creatinine 1.29, Estim Creat Clear Calc 49.11, Est GFR (MDRD) Af Amer 71, Est GFR (MDRD) Non-Af 58 L, BUN/Creatinine Ratio 15.5, Glucose 145 H, Lactic Acid 1.1, Calcium 8.4 L, Magnesium 2.5, Total Bilirubin 0.80, Direct Bilirubin 0.18, AST 24, ALT 16, Alkaline Phosphatase 63, Troponin I High Sens 6, Total Protein 6.2 L, Albumin 2.9 L, Globulin 3.3, Lipase 52 02/17/23 00:26: Urine Color Yellow, Urine Clarity Clear, Urine pH 7.0, Ur Specific [place] 1.005, Urine Protein 15 H, Urine Glucose (UA) Normal, Urine Ketones Negative, Urine Occult Blood 25 H, Urine Nitrite Negative, Urine Bilirubin Negative, Urine Urobilinogen Normal, Ur Leukocyte Esterase Negative, Urine RBC 0 SEEN, Urine WBC 0 SEEN, Ur Squamous Epith Cells 0 SEEN, Urine Bacteria 0 SEEN, Urine Mucus 0 SEEN 02/17/23 05:20: WBC 10.9, RBC 4.01 L, Hgb 11.7 L, Hct 36.5 L, MCV 91.0, MCH 29.2, MCHC 32.1, RDW Std Deviation 45.5 H, RDW Coeff of [place] 13.4, Plt Count 185, MPV 10.1, Immature Gran % (Auto) 0.400, Neut % (Auto) 71.4 H, Lymph % (Auto) 15.3 L, [place] % (Auto) 10.1 H, Eos % (Auto) 2.3, Baso % (Auto) 0.5, Absolute Neuts (auto) 7.8 H, Absolute Lymphs (auto) 1.67, Nucleated RBC % 0 Radiography Diagnostic Testing: Radiology Impression Abdomen/Pelvis CT 02/16/23 22:14 IMPRESSION: Findings are consistent with acute sigmoid colon diverticulitis without abscess. Electronically Signed: Adrianne Liu MD at 0:19 EDT Reading Location ID and State: [facility] / [place] , Service support , Chest X-Ray 02/16/23 22:55 IMPRESSION: Suspect early or resolving left lower lobe pneumonia. Electronically Signed: Jeffrey Leach MD at 23:49 EDT , D/C Instructions Discharge Diet: Light diet - advance as tolerated Meaningful Use Info Meaningful Use Diagnoses (Choose all that apply): None applicable Discharge Plan Admission Admit Date/Time: 02/17/23 01:31 Primary Reason for Your Visit: Low blood pressure, diarrhea Attending Provider: Heydi Levy Primary Care Provider: Terri Bacon Consulting Providers: Jamal Schroeder Instructions Patient Instructions: Diverticulitis Dc Additional Instructions / Restrictions: DISCHARGE INSTRUCTIONS PLEASE READ *Please take this with you to your next doctors appointment* -You will need to continue antibiotics for 9 more days, you will be discharged on ciprofloxacin 500 mg twice daily with first dose tonight and metronidazole 500 mg 3 times daily also with first dose tonight -Strongly recommend against drinking alcohol while on metronidazole as the combination can cause nausea, vomiting, racing heart, and flushing of the face. Avoid alcohol for at least 3 days after last dose of metronidazole. -Continue to hold losartan until your symptoms have resolved and you are off antibiotics -Eat a diet low in fiber while recovering. -Foods to include: flake cereal, mashed potatoes, pancakes, waffles, pasta, white bread, rice, applesauce, bananas, eggs, fish, poultry, tofu, and well-cooked vegetables -Drink 6 to 8 glasses of water every day, unless told otherwise -Use a heating pad or hot water bottle to reduce abdominal cramping or pain -If you have not had a colonoscopy within the past year it is recommended that you have one in 6 to 8 weeks. This can be coordinated through your primary care physician's office -Please call your primary care provider's office upon discharge to schedule a hospital follow up within 1 week. -For any concerning signs or symptoms please call 911 or proceed to the nearest emergency department Discharge Orders/Prescriptions Prescriptions: New ciprofloxacin HCl 500 mg tablet 500 mg PO Q12H 9 Days Qty: 19 0RF Rx Instructions: first dose night of 10/24 metronidazole 500 mg Tablet 500 mg PO TID 9 Days Qty: 28 0RF Continued montelukast 10 mg tablet 10 mg PO DAILY fluticasone propionate 50 mcg/actuation [place],Suspension 2 spray INTRANASAL DAILY cholecalciferol (vitamin D3) [Vitamin D3] 25 mcg (1,000 unit) Tablet 25 mcg PO DAILY ohohnpw-shit-ebjbq-oreg-capryl 100 mg-150 mg- 50 mg-150 mg Capsule 1 cap PO DAILY azelastine 137 mcg (0.1 %) aerosol,spray 1 spray INTRANASAL DAILY albuterol sulfate [Ventolin HFA] 90 mcg/actuation HFA aerosol inhaler 1 puff INHALATION Q4H PRN (Reason: shortness of breath or wheezing) Patient Comments: Inhale 2 puff using inhaler every six hours as needed Held losartan 50 mg tablet 50 mg PO DAILY Hold Instructions: Resume on 02/28/23. Referrals / Follow Up: Terri Bacon DO [Primary Care Provider] - Within 1 Week Disposition Disposition (needs filled in before D/C Order can be placed): Home, Self Care
--- NOTE | 2023-02-17 13:53 | PCM.DC ---
Discharge Instructions Diet Discharge Diet: Light diet - advance as tolerated Activity Discharge Activity: Return to Normal Activity Follow Up Care Test Results: Test results from this visit will be discussed in further detail at your follow-up appointment, if applicable. Discharge Plan Admission Admit Date/Time: 02/17/23 01:31 Primary Reason for Your Visit: Low blood pressure, diarrhea Attending Provider: Heydi Levy Primary Care Provider: Terri Bacon Consulting Providers: Jamal Schroeder Instructions Patient Instructions: Diverticulitis Dc Additional Instructions / Restrictions: DISCHARGE INSTRUCTIONS PLEASE READ *Please take this with you to your next doctors appointment* -You will need to continue antibiotics for 9 more days, you will be discharged on ciprofloxacin 500 mg twice daily with first dose tonight and metronidazole 500 mg 3 times daily also with first dose tonight -Strongly recommend against drinking alcohol while on metronidazole as the combination can cause nausea, vomiting, racing heart, and flushing of the face. Avoid alcohol for at least 3 days after last dose of metronidazole. -Continue to hold losartan until your symptoms have resolved and you are off antibiotics -Eat a diet low in fiber while recovering. -Foods to include: flake cereal, mashed potatoes, pancakes, waffles, pasta, white bread, rice, applesauce, bananas, eggs, fish, poultry, tofu, and well-cooked vegetables -Drink 6 to 8 glasses of water every day, unless told otherwise -Use a heating pad or hot water bottle to reduce abdominal cramping or pain -If you have not had a colonoscopy within the past year it is recommended that you have one in 6 to 8 weeks. This can be coordinated through your primary care physician's office -Please call your primary care provider's office upon discharge to schedule a hospital follow up within 1 week. -For any concerning signs or symptoms please call 911 or proceed to the nearest emergency department Discharge Orders/Prescriptions Prescriptions: New ciprofloxacin HCl 500 mg tablet 500 mg PO Q12H 9 Days Qty: 19 0RF Rx Instructions: first dose night of 02/17 metronidazole 500 mg Tablet 500 mg PO TID 9 Days Qty: 28 0RF Continued montelukast 10 mg tablet 10 mg PO DAILY fluticasone propionate 50 mcg/actuation [place],Suspension 2 spray INTRANASAL DAILY cholecalciferol (vitamin D3) [Vitamin D3] 25 mcg (1,000 unit) Tablet 25 mcg PO DAILY xopxcsp-gbza-oizgf-oreg-capryl 100 mg-150 mg- 50 mg-150 mg Capsule 1 cap PO DAILY azelastine 137 mcg (0.1 %) aerosol,spray 1 spray INTRANASAL DAILY albuterol sulfate [Ventolin HFA] 90 mcg/actuation HFA aerosol inhaler 1 puff INHALATION Q4H PRN (Reason: shortness of breath or wheezing) Patient Comments: Inhale 2 puff using inhaler every six hours as needed Held losartan 50 mg tablet 50 mg PO DAILY Hold Instructions: Resume on 02/28/23. Referrals / Follow Up: Terri Bacon DO [Primary Care Provider] - Within 1 Week Disposition Disposition (needs filled in before D/C Order can be placed): Home, Self Care
--- NOTE | 2023-02-17 14:31 | PHA.DC.MC.R ---
Pharmacy [facility] Pharm[facility] Service has performed discharge medication reconciliation and counseling for this patient. The patient's discharge medication list was reviewed for discrepancies and discrepancies were resolved. The patient was counseled on the following discharge medications and changes in medications for homegoing were reviewed. The Reason for Use, instructions for use, and potential side effects were reviewed for all new medications. The patient's questions regarding all of their medications were answered. 1. Ciprofloxacin 500 mg PO Q12H X 9 more days after today 2. Metronidazole 500 mg PO TID x 9 more days after today The patient was able to verbally demonstrate an understanding of their discharge medications. Medications at Discharge Home Medications losartan 50 mg tablet 50 mg PO DAILY 12/02/20 montelukast 10 mg tablet 10 mg PO DAILY 12/02/20 cholecalciferol (vitamin D3) 25 mcg (1,000 unit) tablet (Vitamin D3) 25 mcg PO DAILY 04/22/21 fluticasone propionate 50 mcg/actuation nasal spray,suspension 2 spray intranasal DAILY 04/22/21 tumeric 100 mg-chadd 150 mg-olive 50 mg-oreg 150 mg-caprylate capsule 1 cap PO DAILY 04/22/21 albuterol sulfate 90 mcg/actuation aerosol inhaler (Ventolin HFA) 1 puff inhalation Q4H PRN shortness of breath or wheezing 02/17/23 azelastine 137 mcg (0.1 %) nasal spray aerosol 1 spray intranasal DAILY 02/17/23 ciprofloxacin HCl 500 mg tablet 500 mg PO Q12H 9 days #19 tabs 02/17/23 metronidazole 500 mg tablet 500 mg PO TID 9 days #28 tabs 02/17/23
--- NOTE | 2023-02-17 15:00 | CASEMGMT ---
Patient has order for discharge. RN CM in to review needs at discharge with patient. Patient denies needs at discharge. Patient had no further questions or concerns.
== END 2023-02-17 13:52 | disposition home or self-care (01) ==
LOC: ED 02-17 01:30 → PCU 02-17 01:40
PROVIDERS: Admitting Provider Internal Medicine; Emergency Provider Emergency Medicine; PCP Internal Medicine; Visit Provider Internal Medicine
DX: K57.32 Diverticulitis of large intestine without perforation or abscess without bleeding (principal); M35.3 Polymyalgia rheumatica; I95.9 Hypotension, unspecified; I10 Essential (primary) hypertension; M19.90 Unspecified osteoarthritis, unspecified site; J45.909 Unspecified asthma, uncomplicated; Z79.899 Other long term (current) drug therapy
CPT/HCPCS: 96374; 36415; 71045; 74177; 80048; 80076; 81001; 83605; 83690; 83735; 84484; 85025; 85610; 85730; 87040; 93005; 96361; 96365; 96366; 96372; 99221; 99285; J7030; J7120; Q9967; A4216; G0378

== ENCOUNTER → 2023-02-24 | Outpatient (CLI) | payer MEDICARE, OTHER, SELFPAY ==
[2023-02-24 10:12] LABS: Absolute Lymphocyte Count 1.66 X10^3/uL (0.83-4.51); Absolute Neutrophil Count 6.6 X10^3/uL (2.0-7.7); Basophil# 0.07 X10^3/uL; Basophil% 0.7 % (0-1); Eosinophil# 0.37 X10^3/uL; Eosinophils% 3.8 % (0-5); Hematocrit 46.5 % (40-54); Lymphocyte # 1.66 X10^3/ul (0.83-4.51); Mean Corp Hgb Conc 32.3 g/dL (32-36); Mean Corpuscular Hgb 28.5 pg (27.0-32.0); Mean Corpuscular Volume 88.4 fL (80-94); Mean Platelet Vol. 9.2 fl (6.2-12.0); Monocyte# 1.03 X10^3/uL; Monocyte% 10.5 % (0-10); NRBC Flagged by Analyzer 0 % (0-5); Neutrophil # 6.63 X10^3/uL (2.7-7.7); Neutrophil % 67.7 % (47-70); Platelet Count 360 K/mm3 (150-450); RBC Distribution Width CV 13.5 % (11.6-14.6); RBC Distribution Width SD 43.9 fl (35.1-43.9); Red Blood Count 5.26 M/mm3 (4.6-6.2); White Blood Count 9.8 K/mm3 (4.4-11.0)
[2023-02-24 10:21] LABS: ALB/GLOB Ratio 1.2 RATIO (0.9-2.4); AST(SGOT) 47 U/L (15-37); Alanine Aminotransfer ALT/SGPT 89 U/L (16-61); Albumin, Serum 3.7 g/dL (3.2-5.0); Alkaline Phosphatase 68 U/L (45-117); Anion Gap 4 (5-15); BUN 17 mg/dL (7-18); BUN/Creat Ratio 14.7 RATIO (10-20); Chloride 107 mmol/L (98-107); Creatinine, Serum 1.16 mg/dL (0.70-1.30); EST Glomerular Filtration Rate 66 mL/min (>60); Est Glom Filt Rate - Afr Amer 80 mL/min (>60); Glucose 117 mg/dL (74-106); Potassium 3.8 mmol/L (3.5-5.1); Protein, Total 6.7 g/dL (6.4-8.2); Sodium Level 141 mmol/L (136-145)
[2023-02-25 10:28] LABS: Bilirubin, Direct 0.17 mg/dL (0.00-0.30)
== END | disposition home or self-care (01) ==
LOC: LABSPEC 09:59
PROVIDERS: PCP Internal Medicine; Referring Provider Nurse Practitioner Family; Visit Provider Nurse Practitioner Family
DX: L27.0 Generalized skin eruption due to drugs and medicaments taken internally (principal)
CPT/HCPCS: 80053; 82248; 85025

== ENCOUNTER 2023-02-26 10:31 | Inpatient (IN) | payer MEDICARE, OTHER, SELFPAY ==
[2023-02-26] VITALS (7 sets, daily range): BP systolic 105–150; BP diastolic 53–88; PULSE 94–99; RESP 16–20; TEMP 36.4–38.4; O2SAT 92–100; BMI 29.2; BMI 28.9
--- NOTE | 2023-02-26 10:48 | CT_ITS ---
STUDY: CT ABDOMEN AND PELVIS WITH CONTRAST REASON FOR EXAM: Male, 72 years old. Pain, history diverticulitis RADIATION DOSAGE (If Supplied By Facility): CTDIvol = ( 12.60 ) mGy, DLP = ( 812.82 ) mGycm TECHNIQUE: Transaxial images were obtained from the dome of the diaphragm to the symphysis pubis without oral contrast. IV 100mL Isovue-300 was administered. Sagittal and coronal images were reconstructed. Individualized dose optimization techniques were used for this CT. COMPARISON: Comparison is made with prior study dated February 16, 2023. FINDINGS: The visualized lung bases are unremarkable. The visualized portions of the heart are within normal limits. Small amount of free intraperitoneal air. There is decreased attenuation of the liver consistent with steatosis. The patient is status post cholecystectomy. Normal spleen. Normal pancreas. Normal bilateral adrenal glands. Stable bilateral renal cysts more prominent in the right kidney. Normal visualized stomach. Mild degree of mural thickening of the distal jejunal loops adjacent to the sigmoid colon. There is diverticulosis, with thickening of the colon wall, and pericolonic inflammation changes consistent with acute diverticulitis. Inflammatory changes are seen in the peritoneal fat in the lower abdomen and pelvis. Small amount of loculated air is seen in the sigmoid mesentery. There is diffuse atherosclerotic calcification of the abdominal aorta, without a demonstrated aneurysm. Normal inferior vena cava. Normal retroperitoneum. Normal urinary bladder. Prostatic enlargement with indentation of the bladder base. Mild degree of bladder wall thickening although the bladder is not completely distended at this time. Small bilateral inguinal hernias containing fat. There are diffuse degenerative changes of the visualized lumbar spine. CT/Abdomen/Pelvis W IV Cont ONLY IMPRESSION: Acute sigmoid diverticulitis with inflammatory changes in the pelvis as well as adjacent small bowel loops. Localized perforation in the sigmoid with a Jovon. Small amount of free air is seen in the peritoneum. Electronically Signed: Abe Lloyd MD at 12:20 EDT ,
--- NOTE | 2023-02-26 10:49 | ED.VIS.GI ---
HPI HPI - GI History of Present Illness Chief Complaint: Abd Pain Informant: patient and spouse/S.O. Narrative Narrative: Patient presents with returning lower abdominal pain. Patient started with pain in the lower abdomen on 16 February. He was seen here the next day. Found to have diverticulitis. Because he had some lower blood pressure he was admitted overnight. He was on IV antibiotics. They held his losartan and treated him with oral antibiotics at discharge. He was on Cipro and Flagyl. He was doing well. His symptoms had resolved and he had no abdominal discomfort nausea vomiting or diarrhea. On Thursday of this week, he started to break out in hives all over. He saw his primary physician. He was given a shot of steroids and his hives went away within an hour. They stop the antibiotics at that time because his symptoms had resolved. They did place him on a short course of steroids as well as Zyrtec. The next day his pain in the lower abdomen started coming back. He states his pain was in the left lower quadrant but it is a little bit more centralized now. But no urinary symptoms. No back pain. No vomiting. No fevers. He has also been trying a bland diet with slightly increased fluids. [facility] Medical History Abdominal pain Arthritis Asthma Carpal tunnel syndrome, bilateral History of steroid therapy History of stress test Hypertension Non-smoker PMR (polymyalgia rheumatica) Home Medications losartan 50 mg tablet 50 mg PO DAILY 12/02/20 [History Last Taken 04/29/21] montelukast 10 mg tablet 10 mg PO DAILY 12/02/20 [History Last Taken Unknown] cholecalciferol (vitamin D3) 25 mcg (1,000 unit) tablet (Vitamin D3) 125 mcg PO DAILY 04/22/21 [History Last Taken 02/26/23] fluticasone propionate 50 mcg/actuation nasal spray,suspension 2 spray intranasal DAILY 04/22/21 [History Last Taken Unknown] tumeric 100 mg-chadd 150 mg-olive 50 mg-oreg 150 mg-caprylate capsule 1 cap PO DAILY 04/22/21 [History Last Taken Unknown] albuterol sulfate 90 mcg/actuation aerosol inhaler (Ventolin HFA) 1 puff inhalation Q4H PRN shortness of breath or wheezing 02/17/23 [History Last Taken Unknown] azelastine 137 mcg (0.1 %) nasal spray aerosol 1 spray intranasal DAILY 02/17/23 [History Last Taken 02/25/23] ciprofloxacin HCl 500 mg tablet 500 mg PO Q12H 9 days #19 tabs 02/17/23 [Rx Last Taken Unknown] metronidazole 500 mg tablet 500 mg PO TID 9 days #28 tabs 02/17/23 [Rx Last Taken Unknown] budesonide 1 mg/2 mL suspension for nebulization mg 02/26/23 [History Last Taken Unknown] prednisone 20 mg tablet mg 02/26/23 [History Last Taken 02/25/23] Allergy/AdvReac Type Severity Reaction Status Date / Time ciprofloxacin Allergy Severe Hives Verified 02/26/23 12:19 metronidazole [From Flagyl] Allergy Severe Hives Verified 02/26/23 12:19 dupilumab [From Dupixent Pen] AdvReac syncope Verified 02/26/23 12:21 Surgical History History of carpal tunnel release of both wrists History of tonsillectomy and adenoidectomy Hx of appendectomy Hx of cholecystectomy Social History Smoking Status: Never smoker ROS ROS ED ROS Narrative A complete review of systems was performed and is negative except as documented in the history of present illness. Some specific details below. Constitutional: No recent fevers or chills. EYE: No visual complaints or pain. ENT: No difficulty swallowing. No swelling. No pain. No GERD. CV: No chest pain or palpitations. Respiratory: No dyspnea. No hemoptysis. No difficulty taking breaths. GI: Please see history of present illness. : No frequency dysuria or hematuria. No odor to the urine. Musculoskeletal: No recent trauma. No pains. No pains in his back. Skin: No rash. Nondiaphoretic. Neuro: No weakness or numbness. Endocrine: No polyuria or polydipsia. EXAM Physical Exam Narrative Exam Narrative: CONSTITUTIONAL: Patient is nontoxic in appearance. The patient looks comfortable. HEENT: No notable trauma. Mucous membranes are still moist. EYES: No conjunctival injection. No proptosis. CARDIOVASCULAR: Regular rate. Regular rhythm. No notable murmur. No JVD. RESPIRATORY: No respiratory distress. Breathing is unlabored. No wheezes. No rhonchi. No rales. No pain with a deep breath. GASTROINTESTINAL: Not distended. Bowel sounds are normal. He does have some mild suprapubic area tenderness but no rebound or guarding. No mass. No skin changes. GENITOURINARY: No tenderness over the bladder. No CVA tenderness. MUSCULOSKELETAL: Atraumatic. No tenderness. NEUROLOGICAL: Patient is alert and appropriate. No focal deficit noted. SKIN: No noted rashes. No diaphoresis. PSYCHIATRIC: Patient is calm. Mood is appropriate. Const Vital Signs: 02/26/23 10:32 02/26/23 12:26 Temperature 97.6 F L Temperature Source Temporal Pulse Rate 94 99 Respiratory Rate 16 18 Blood Pressure 150/88 H 131/87 H Blood Pressure Mean 108 101 Pulse Ox 99 100 Oxygen Delivery Method Room Air MDM MDM MDM Narrative Medical decision making narrative: We will repeat blood work and repeat his CT scan. Patient reports that somewhere in the past he had heard he might be allergic to penicillin but he has no recollection of ever having a known reaction. If needed, we may get him started on Augmentin. We do not know if it was the Cipro or the Flagyl that caused his rash but it was likely 1 of these because nothing else was new that he was exposed to or took internally. Patient CBC shows a elevated white count at 23.4. This is likely due to both infection as well as being on steroids currently. Patient's electrolytes show no marked abnormalities. Mild elevation in the BUN and he is given IV fluids. Glucose is only a little bit up at 195. This is likely effect from steroids and infection also. Patient is urine shows no sign of infection. My independent interpretation of the patient's CT scan of the abdomen shows diverticulitis with some apparent free air. Final reading is pending. I discussed the case with surgeon, Dr. Lara. We will initiate Zosyn. Patient will be coming in the hospital. I went back and examined him again. He definitely has suprapubic tenderness but really no tenderness anywhere else. I do not think he acutely needs to go to the operating room. This is not an acute surgical abdomen at this time. Although patient has been on steroids many times in the past due to polymyalgia rheumatica, his last time on steroids was actually made. He thought it might even be longer ago. He is not on them long-term. But he did start a Kenalog shot on Thursday and then oral steroids for 5 days. He had 1 more day to take these. Lab Data Attestation: I reviewed the patient's lab results. Labs: Laboratory Results - last 24 hr 02/26/23 02/26/23 10:50 11:10 WBC 23.4 H RBC 4.83 Hgb 13.8 Hct 43.6 MCV 90.3 MCH 28.6 MCHC 31.7 L RDW Std Deviation 46.5 H RDW Coeff of [place] 14.1 Plt Count 320 MPV 9.1 Immature Gran % (Auto) 0.900 Neut % (Auto) 88.8 H Lymph % (Auto) 6.0 L [place] % (Auto) 4.1 Eos % (Auto) 0.0 Baso % (Auto) 0.2 Absolute Neuts (auto) 20.8 H Absolute Lymphs (auto) 1.40 Nucleated RBC % 0 Differential Comment COMMENT Sodium 139 Potassium 3.8 Chloride 107 Carbon Dioxide 27.0 Anion Gap 5 BUN 25 H Creatinine 1.16 Estim Creat Clear Calc 54.61 Est GFR (MDRD) Af Amer 80 Est GFR (MDRD) Non-Af 66 BUN/Creatinine Ratio 21.6 H Glucose 195 H Calcium 8.7 Urine Color Yellow Urine Clarity Clear Urine pH 6.0 Ur Specific [place] 1.025 Urine Protein 15 H Urine Glucose (UA) Normal Urine Ketones Negative Urine Occult Blood 25 H Urine Nitrite Negative Urine Bilirubin Negative Urine Urobilinogen Normal Ur Leukocyte Esterase Negative Urine RBC 0 SEEN Urine WBC 0 SEEN Ur Squamous Epith Cells 0 SEEN Urine Bacteria 0 SEEN Urine Mucus 0 SEEN Radiography Diagnostic Testing: Clinical Impression(s) from Imaging Studies Abdomen/Pelvis CT 02/26/23 10:48 IMPRESSION: Acute sigmoid diverticulitis with inflammatory changes in the pelvis as well as adjacent small bowel loops. Localized perforation in the sigmoid with a Jovon. Small amount of free air is seen in the peritoneum. Electronically Signed: Abe Lloyd MD at 12:20 EDT , Management Discussion w/another healthcare provider: Insurance Investigator Discharge Plan Dx/Rx/DC Orders Clinical Impression: Diverticulitis, Leukocytosis, Colon perforation Disposition Disposition: Acute Care Hospital [facility]
[2023-02-26 10:55] LABS: Absolute Neutrophil Count 20.8 X10^3/uL (2.0-7.7); Basophil# 0.04 X10^3/uL; Basophil% 0.2 % (0-1); Hematocrit 43.6 % (40-54); Hemoglobin 13.8 g/dL (13.0-16.5); Mean Corp Hgb Conc 31.7 g/dL (32-36); Mean Corpuscular Hgb 28.6 pg (27.0-32.0); Mean Corpuscular Volume 90.3 fL (80-94); Mean Platelet Vol. 9.1 fl (6.2-12.0); Monocyte# 0.97 X10^3/uL; Monocyte% 4.1 % (0-10); NRBC Flagged by Analyzer 0 % (0-5); Neutrophil # 20.78 X10^3/uL (2.7-7.7); Neutrophil % 88.8 % (47-70); POSITIVE DIFFERENTIAL YES; Platelet Count 320 K/mm3 (150-450); RBC Distribution Width CV 14.1 % (11.6-14.6); RBC Distribution Width SD 46.5 fl (35.1-43.9); Red Blood Count 4.83 M/mm3 (4.6-6.2); White Blood Count 23.4 K/mm3 (4.4-11.0)
[2023-02-26 10:57] LABS: Differential Indicated SCAN CRITERIA MET
[2023-02-26 11:07] LABS: Anion Gap 5 (5-15); BUN 25 mg/dL (7-18); BUN/Creat Ratio 21.6 RATIO (10-20); Calcium,Total 8.7 mg/dL (8.5-10.1); Chloride 107 mmol/L (98-107); Creatinine, Serum 1.16 mg/dL (0.70-1.30); EST Glomerular Filtration Rate 66 mL/min (>60); Est Glom Filt Rate - Afr Amer 80 mL/min (>60); Estimated Creatinine Clearance 54.61 ml/min; Glucose 195 mg/dL (74-106); Potassium 3.8 mmol/L (3.5-5.1); Sodium Level 139 mmol/L (136-145)
[2023-02-26 11:18] LABS: Bacteria 0 SEEN /hpf (None Seen); Mucous, Urine 0 SEEN /hpf (<or=2+); Red Blood Cells-Urine 0 SEEN /hpf (0-5); Squamous Epithelial Cells - UA 0 SEEN /hpf (0-5); White Blood Cells 0 SEEN /hpf (0-5)
[2023-02-26 11:20] LABS: Color, Urine Yellow (Yellow); Glucose, Dipstick Normal (Normal); Ketone-Dipstick Negative (Negative); Leukocyte Esterase-Dipstick Negative /ul (Negative); Nitrite-Dipstick Negative (Negative); Occult Blood-Urine 25 /ul (Negative); Protein-Dipstick 15 mg/dl (Negative); Specific Gravity, Urine 1.025 (1.002-1.030); Urine Bilirubin Dipstick Negative (Negative); Urine Clarity Clear (Clear); Urine Urobilinogen Normal (Normal)
[2023-02-26] MEDS: 0.9% Normal Saline (1000mL) 500 ML 1000 ML IV (11:40)
[2023-02-26] MEDS: Piperacil/Tazobactam 4.5 GM in 0.9% Normal Saline (100mL MB+) 100 ML IV (12:18)
--- NOTE | 2023-02-26 12:22 | PCM.HP.STD ---
HPI - General General Date of Admission: 02/26/23 Date of Service: 02/26/23 Chief Complaint: Abdominal pain HPI Narrative ALEIDA HOWARD, is a 72 M who presents with a 2 day history of worsening lower abdominal pain. Patient was hospitalized on 02/16-02/17 for hypotension and abdominal pain. Patient had a CT scan of the ab/pel at that visit which demonstrated sigmoid diverticulitis. Patient was treated with IV Zosyn over that stay and discharged to home on Cipro and Flagyl. Patient noted that following Thursday he had developed hives. Patient stopped taking the antibiotics and contacted his PCP. He saw PCP on Thursday and was given a steroid injection in the office and a prescription for prednisone. Patient notes the hives resolved. He states on Thursday the lower abdominal pain had become worse, which is what brought him into the ED. Patient notes he has been having chills. No fever that he is aware of. He denies nausea, vomiting. He notes his appetite has been good. He states he has noted a difference in his bowel habits since this episode. He notes his bowel movements are small, pencil-like. He denies blood in his stool. Patient states he has had a colonoscopy with Dr. Whaley in April of this year. Patient states he had 4 polyps removed, otherwise the colon looked good. It was recommended to have the patient repeat his colonoscopy in 3 years. Patient notes his surgical history is appendectomy, tonsillectomy, cholecystectomy, back surgery. Patient had a repeat CT scan of the ab/pel in the ED which demonstrated Acute sigmoid diverticulitis with inflammatory changes in the pelvis as well as adjacent small bowel loops. Localized perforation in the sigmoid with a Jovon. Small amount of free air is seen in the peritoneum. [facility] Medical History Abdominal pain Arthritis Asthma Carpal tunnel syndrome, bilateral History of steroid therapy History of stress test Hypertension Non-smoker PMR (polymyalgia rheumatica) Home Medications losartan 50 mg tablet 50 mg PO DAILY 12/02/20 [History Last Taken 04/29/21] montelukast 10 mg tablet 10 mg PO DAILY 12/02/20 [History Last Taken Unknown] cholecalciferol (vitamin D3) 25 mcg (1,000 unit) tablet (Vitamin D3) 125 mcg PO DAILY 04/22/21 [History Last Taken 02/26/23] fluticasone propionate 50 mcg/actuation nasal spray,suspension 2 spray intranasal DAILY 04/22/21 [History Last Taken Unknown] tumeric 100 mg-chadd 150 mg-olive 50 mg-oreg 150 mg-caprylate capsule 1 cap PO DAILY 04/22/21 [History Last Taken Unknown] albuterol sulfate 90 mcg/actuation aerosol inhaler (Ventolin HFA) 1 puff inhalation Q4H PRN shortness of breath or wheezing 02/17/23 [History Last Taken Unknown] azelastine 137 mcg (0.1 %) nasal spray aerosol 1 spray intranasal DAILY 02/17/23 [History Last Taken 02/25/23] ciprofloxacin HCl 500 mg tablet 500 mg PO Q12H 9 days #19 tabs 02/17/23 [Rx Last Taken Unknown] metronidazole 500 mg tablet 500 mg PO TID 9 days #28 tabs 02/17/23 [Rx Last Taken Unknown] budesonide 1 mg/2 mL suspension for nebulization mg 02/26/23 [History Last Taken Unknown] prednisone 20 mg tablet mg 02/26/23 [History Last Taken 02/25/23] Allergy/AdvReac Type Severity Reaction Status Date / Time ciprofloxacin Allergy Severe Hives Verified 02/26/23 12:19 metronidazole [From Flagyl] Allergy Severe Hives Verified 02/26/23 12:19 dupilumab [From Dupixent Pen] AdvReac syncope Verified 02/26/23 12:21 Surgical History History of carpal tunnel release of both wrists History of tonsillectomy and adenoidectomy Hx of appendectomy Hx of cholecystectomy Social History Smoking Status: Never smoker ROS Constitutional Constitutional: Reports systems reviewed and no addt'l complaints, except as documented Eyes Eyes: Reports systems reviewed and no addt'l complaints, except as documented ENT HEENT: Reports systems reviewed and no addt'l complaints, except as documented Cardiovascular Cardiovascular: Reports systems reviewed and no addt'l complaints, except as documented Respiratory/Chest Respiratory/Chest: Reports systems reviewed and no addt'l complaints, except as documented Gastrointestinal Gastrointestinal: Reports systems reviewed and no addt'l complaints, except as documented Genitourinary Genitourinary: Reports systems reviewed and no addt'l complaints, except as documented Musculoskeletal Musculoskeletal: Reports systems reviewed and no addt'l complaints, except as documented Integumentary Integumentary: Reports systems reviewed and no addt'l complaints, except as documented Neurologic Neurologic: Reports systems reviewed and no addt'l complaints, except as documented Psychiatric Psychiatric: Reports systems reviewed and no addt'l complaints, except as documented Endocrine Endocrinology: Reports systems reviewed and no addt'l complaints, except as documented Hematologic/Lymphatic Hematologic/Lymphatic: Reports systems reviewed and no addt'l complaints, except as documented Allergic/Immunologic Allergic/Immunologic: Reports systems reviewed and no addt'l complaints, except as documented Vital Signs Vital Signs Vital Signs: 02/26/23 10:32 Temperature 97.6 F L Temperature Source Temporal Pulse Rate 94 Respiratory Rate 16 Blood Pressure 150/88 H Blood Pressure Mean 108 Pulse Ox 99 Oxygen Delivery Method Room Air Weight Weight: 187 lb Body Mass Index (BMI) 29.2 Physical Exam Const alert, oriented x3 and no apparent distress Constitutional Narrative: Appears painful HEENT normocephalic and head/scalp atraumatic Eyes PERRL Neck full ROM General: normal visual inspection Lymph Lymphatic: no lymphadenopathy noted Resp normal respiratory effort and clear to auscultation bilaterally Cardio regular rate and regular rhythm GI GI Narrative: Abdomen- soft, moderate amount of tenderness and guarding of the left lower abdomen and lower pelvic region. Hypoactive bowel sounds. no CVA tenderness Back/Spine no CVA tenderness Extremity normal to inspection Skin no rashes or lesions noted Neuro no focal motor deficits and no sensory deficits noted Psych mental status grossly normal and thought process normal Results Lab / Micro Data 02/26/23 10:50 02/26/23 10:50 Labs: Laboratory Results - last 24 hr 02/26/23 10:50: WBC 23.4 H, RBC 4.83, Hgb 13.8, Hct 43.6, MCV 90.3, MCH 28.6, MCHC 31.7 L, RDW Std Deviation 46.5 H, RDW Coeff of [place] 14.1, Plt Count 320, MPV 9.1, Immature Gran % (Auto) 0.900, Neut % (Auto) 88.8 H, Lymph % (Auto) 6.0 L, [place] % (Auto) 4.1, Eos % (Auto) 0.0, Baso % (Auto) 0.2, Absolute Neuts (auto) 20.8 H, Absolute Lymphs (auto) 1.40, Nucleated RBC % 0, Differential Comment COMMENT, Sodium 139, Potassium 3.8, Chloride 107, Carbon Dioxide 27.0, Anion Gap 5, BUN 25 H, Creatinine 1.16, Estim Creat Clear Calc 54.61, Est GFR (MDRD) Af Amer 80, Est GFR (MDRD) Non-Af 66, BUN/Creatinine Ratio 21.6 H, Glucose 195 H, Calcium 8.7 02/26/23 11:10: Urine Color Yellow, Urine Clarity Clear, Urine pH 6.0, Ur Specific [place] 1.025, Urine Protein 15 H, Urine Glucose (UA) Normal, Urine Ketones Negative, Urine Occult Blood 25 H, Urine Nitrite Negative, Urine Bilirubin Negative, Urine Urobilinogen Normal, Ur Leukocyte Esterase Negative, Urine RBC 0 SEEN, Urine WBC 0 SEEN, Ur Squamous Epith Cells 0 SEEN, Urine Bacteria 0 SEEN, Urine Mucus 0 SEEN Radiology Impression Abdomen/Pelvis CT 02/26/23 10:48 IMPRESSION: Acute sigmoid diverticulitis with inflammatory changes in the pelvis as well as adjacent small bowel loops. Localized perforation in the sigmoid with a Jovon. Small amount of free air is seen in the peritoneum. Electronically Signed: Abe Lloyd MD at 12:20 EDT , Assessment & Plan Assessment/Plan (1) Diverticulitis of colon with perforation: PLAN: I am seeing this patient in conjunction with Dr. Lara. Patient has failed outpatient treatment for diverticulitis and will need admission. Patient's white count is elevated and CT scan of the abdomen/pelvis is demonstrating perforation of the sigmoid diverticulitis previous seen on CT scan. Due to patient receiving steroids for the hives that he developed from the antibiotics, this has likely contributed to the elevation of the patient's white blood count and perforation of the colon. Plan is to admit, start IV antibiotics and fluids, and bowel rest. I have discussed with the patient and his that if conservative measures fail, he may need surgical intervention which comes with a risk of an ostomy creation. Patient is agreeable to admission and would be agreeable to surgical intervention if recommended. Patient has had the opportunity to ask and have questions answered. Patient verbally understands and agrees with the plan. Thank you for llowing us to participate in this patient's care. Dr. Lara will also evaluate this patient independently. Charges/Coding Visit Charges Inpatient E&M: 12205 Init Hosp L2
[2023-02-26] MEDS: 0.9% Normal Saline (1000mL) 1,000 ML 100 ML IV (15:52)
[2023-02-26] MEDS: Piperacil/Tazobactam 3.375 GM in 0.9% Normal Saline (50mL MB+) 50 ML IV (19:03)
[2023-02-26] MEDS: Bupivacaine 0.25% 30 ML Vial (20:00)
[2023-02-26] MEDS: BUPIVACAINE LIPOSOME/PF 20 ML VIAL OPERA.SITE (20:00)
[2023-02-26] MEDS: 0.9% Normal Saline (Pres. free 10 ML Vial (20:00)
[2023-02-26] MEDS: Lactated Ringers 1,000 ML 15 ML IV ×2 (20:40→22:20)
--- NOTE | 2023-02-26 23:00 | OP.PCM_ITS ---
Report of Operation Date of Procedure: 02/26/23 Pre-Operative Diagnosis: Complicated sigmoid diverticulitis with free air and p eritonitis Post-Operative Diagnosis: Same Surgery/Procedure Performed:: Laparoscopic sigmoid colectomy with end colostomy Description of Surgical Findings:: Perforation within mid to distal sigmoid colon and severely thickened/abnormal colonic mesentery Surgeon: Kvng Lara cash register operator: Gayle Lora Type of Anesthesia: General/Supplemental Anesthesiologist: Jaciel Gil Specimen's removed: Sigmoid colon Drains: 15 Solomon Islander round Amadou drain Estimated Blood Loss (mL): 75 Description of Procedure: After appropriate identification in the PACU holding area and confirmation of consents, patient was brought to the operating room where he was positioned supine on the operating table. There, preoperative antibiotics were completed. He then underwent induction with general endotracheal anesthetic. A nasogastric tube was placed by anesthesia and a Olguin catheter was inserted with sterile t echnique for accurate ins and outs monitoring. The abdomen was prepped and draped in usual sterile fashion. Formal timeout confirmed patient and the procedure. Procedure was begun with a supraumbilical King entry and placement of a 12 mm balloon trocar. Pneumoperitoneum was established to 15 mmHg and a laparoscope was inserted to reveal no inadvertent injury to the viscera below. A transversus abdominis plane block was made under laparoscopic guidance bilaterally using 100 mL of Exparel, bupivacaine, and saline. 3 x 5 mm trocars were placed in the right midabdomen, right lower quadrant (this port was later upsized for a 12 mm port), and left lower quadrant positions-also under laparoscopic visualization. The abdomen was inspected and I found a number of adhesions between epiploic appendages of the colon and the anterior abdominal wall. More centrally I found a interloop abscess with the mesenteric side of the sigmoid colon and an adjacent loop of small bowel. There was no ongoing contamination but evidence of green?yellow purulence. The mesocolon was severely thickened and there was abundant fibrinous exudate locally. In order to obtain peritoneal cultures and thereby tailor patient's postoperative antibiotic regimen I obtained a specimen of the peritoneal fluid using our suction administrative resident and a Lukens trap. Then in Trendelenburg positioning, the patient's colon was mobilized lateral to medial by incising the white line of Toldt with the laparoscopic LigaSure device. The sigmoid colon was found to be moderately densely adherent to the pelvic brim and great care was taken to feather out the adhesions and sharply incise this adhesion with gentle pulling to avoid injury to the left ureter. This colonic mobilization extended from the lateral aspect of the splenic flexure superiorly to the distal sigmoid colon inferiorly. Once complete, the colon was elevated anteriorly and a retrocolic window was carefully made using the laparoscopic LigaSure device to maintain hemostasis through the thick mesocolon distal to the area of severe edema and probable perforation. This window was continued directly adjacent to the posterior wall of the sigmoid colon until we are able to pass fully through the mesocolon with a laparoscopic grasper and her LigaSure. A distal transection point was elected and the distal sigmoid colon was divided with serial firings of the laparoscopic 60 mm Tasley stapler. I then used the laparoscopic LigaSure device to divide the mesocolon just off of the colon wall until I was proximal to the area of greatest inflammation. Once I was satisfied with the mobility of the colon I used a set of laparoscopic needle drivers to place a 2-0 Prolene stitch through the patient's remaining distal sigmoid staple line. The bogginess of the colon and mesocolon specimen precluded any attempts at delivering the specimen through the abdominal wall via patient's eventual colostomy site so I elected to make a infraumbilical mini laparotomy approximately 7 cm in longitudinal dimension. This incision was carried down through the soft tissues, the abdominal wall and ultimately the peritoneum with electrocautery. A medium size Warren wound protector was placed once peritoneal entry was established. The free end of colon was delivered through this opening and the colon was palpated to determine the limits of the affected/diseased c olon. A proximal transection point was thereby established and the colon was divided at this point with an additional firing of our Tasley stapler and passed off the operative field for pathologic processing. Several large epiploic appendages were removed from the new distal end of the colon designated for colostomy creation and then a marking clamp was placed on the staple line and I transition to creation of a soft tissue defect just lateral to the patient's umbilicus. A longitudinal incision was made in the anterior rectus sheath, the rectus fibers were along the direction of their orientation and the posterior rectus sheath was sharply incised longitudinally. The opening was then enlarged to accommodate 3 fingerbreadths bluntly. The cut edge of colon was then delivered through this opening. Prior to closure of the peritoneal cavity at the laparotomy incision, I placed a 15 [place] Islander round Amadou drain into the left paracolic gutter and left hemipelvis and brought this out through our 12 mm port site incision in the right lower quadrant. Then the fascia of the mini laparotomy incision was closed in a running technique using #1 PDS suture. 0 Vicryl suture was used to close down a portion of the fascia at the 12 mm port site around the drain to reduce patient's risk of a postoperative hernia. The abdomen was then minimally reinsufflated and laparoscope was inserted to confirm the orientation of her colostomy. With this confirmed, the balloon trocar was removed from the supraumbilical position and the fascia here was closed in a [id number] technique with additional 0 Vicryl suture. All skin incisions were closed with 4-0 Monocryl. Some additional sutures were used to close down the space over the mini laparotomy incision using 3-0 Vicryl in an interrupted fashion. With these abdominal incisions closed, the patient's right lower quadrant drain was secured at the abdominal wall with a 2-0 nylon suture. Then I set about maturing the left lower quadrant, skin level colostomy in a Dinah fashion. Unfortunately there was some thinning of the colon at the 7 o'clock position on the stoma and I was concerned about placing additional traction on the colon?thereby risking a tear so I did elect to mature it directly at skin level. The mucosa was tacked to the dermis circumferentially using additional 3-0 Vicryl sutures. Then an ostomy appliance was cut and fit about the ostomy. Dressings were applied to all the remaining incisions. Patient was awoken from general anesthetic and taken to PACU for ongoing recovery. Complications None Admit VTE Documentation VTE Mechan Device Prophylaxis: SCD's Procedures Digestive 40xxx-49xxx: 53641 Lap part colectomy w/stoma
[2023-02-27] VITALS (12 sets, daily range): BP systolic 90–135; BP diastolic 60–84; PULSE 68–98; RESP 16–18; TEMP 36.4–37.8; O2SAT 89–97
--- NOTE | 2023-02-27 | COLBX_PTH ---
PATIENT: ALEIDA HOWARD LOC: MS3 U#:[id number] AGE/SX: 72/M ROOM: KS312 RE02/26/[address]: Dr. Kvng Lara MD : 1950 BED: 1 DIS: 03/02/2023 SPEC #: [id number] RECD: 02/27/23 11:05 STATUS: JUDY PHILLIPS #: [id number] FLACO: 02/27/23 00:[address]: Kvng Lara DEPT: SURGICAL PATHOLOGY RECD BY: Susan Small ENTERED: 02/27/23 11:21 SP TYPE: COLON BX OTHR DR: Dr. Terri Bacon DO Tissues: Sigmoid colon biopsy Procedures: Surgery Specimen Level IV HEADER OPERATION: Laparoscopic sigmoid colectomy with creation of end colostomy PRE-OP DIAGNOSIS: Diverticulitis of colon with perforation TISSUE SUBMITTED: Sigmoid colon MICROSCOPIC DIAGNOSIS Sigmoid colon, colectomy: Diverticulosis and diverticulitis with ruptured diverticula. SJ: 03/03/2023 MICROSCOPIC DESCRIPTION Slides are reviewed. GROSS DESCRIPTION Received in fixative is one container labeled with the patient's name and designated sigmoid colon. The specimen consists of a segment of colon with attached pericolonic adipose tissue measuring 6.0 cm in length. The attached pericolonic adipose tissue shows oliva, purulent exudate. The resection margins are stapled. Lumen contains fecal material. Also resent in the container is a piece of adipose tissue measuring 8.0 x 4.0 x 1.5 cm. A piece of soft tissue is also noted measuring1.5 x 1.0 x 1.0 cm. More dictation will follow after additional fixation /SJ:layne 02/27/2023 Sections reveal multiple diverticula, a few of them are appears to be ruptured. Sections of the pericolonic adiopose tissue do not reveal any obviously enlarged lymph nodes. Ethnic Origins Teacher sections are submitted in 6 cassettes as follows: 1 &2 - ruptured diverticula, 3 &4 - more diverticula, 5 pericolonic adiopose tissue, 6 - detach piece of adipose tissue. SJ: 03/02/23 TC: 5 CPT: 70398
[2023-02-27] MEDS: 0.9% Normal Saline (1000mL) 1,000 ML 100 ML IV ×2 (04:04→14:15)
[2023-02-27] MEDS: Piperacil/Tazobactam 3.375 GM in 0.9% Normal Saline (50mL MB+) 50 ML IV ×3 (06:11→21:18)
[2023-02-27] MEDS: Morphine 2 MG/ML Syringe IV ×2 (06:12→12:16)
[2023-02-27] MEDS: Acetaminophen 325 MG Tablet 650 MG PO ×2 (06:12→16:19)
[2023-02-27 07:12] LABS: Absolute Lymphocyte Count 1.44 X10^3/uL (0.83-4.51); Absolute Neutrophil Count 18.8 X10^3/uL (2.0-7.7); Basophil# 0.04 X10^3/uL; Basophil% 0.2 % (0-1); Hematocrit 41.1 % (40-54); Lymphocyte # 1.44 X10^3/ul (0.83-4.51); Lymphocyte % 6.5 % (19-41); Mean Corp Hgb Conc 31.6 g/dL (32-36); Mean Corpuscular Hgb 28.6 pg (27.0-32.0); Mean Corpuscular Volume 90.3 fL (80-94); Mean Platelet Vol. 9.7 fl (6.2-12.0); Monocyte# 1.84 X10^3/uL; Monocyte% 8.3 % (0-10); NRBC Flagged by Analyzer 0 % (0-5); Neutrophil # 18.81 X10^3/uL (2.7-7.7); Neutrophil % 84.5 % (47-70); POSITIVE DIFFERENTIAL YES; Platelet Count 287 K/mm3 (150-450); RBC Distribution Width CV 14.4 % (11.6-14.6); RBC Distribution Width SD 47.3 fl (35.1-43.9); Red Blood Count 4.55 M/mm3 (4.6-6.2); White Blood Count 22.2 K/mm3 (4.4-11.0)
[2023-02-27 07:27] LABS: Differential Indicated SCAN CRITERIA MET
[2023-02-27 07:41] LABS: Anion Gap 7 (5-15); BUN 18 mg/dL (7-18); BUN/Creat Ratio 17.8 RATIO (10-20); Calcium,Total 7.6 mg/dL (8.5-10.1); Chloride 107 mmol/L (98-107); Creatinine, Serum 1.01 mg/dL (0.70-1.30); EST Glomerular Filtration Rate 77 mL/min (>60); Est Glom Filt Rate - Afr Amer 94 mL/min (>60); Estimated Creatinine Clearance 62.72 ml/min; Glucose 118 mg/dL (74-106); Potassium 3.8 mmol/L (3.5-5.1); Sodium Level 139 mmol/L (136-145)
--- NOTE | 2023-02-27 07:45 | WOUNDNOTE ---
Was asked to see patient for new ostomy. patient is POD#1 sigmoid colectomy with colostomy creation d/t perforated diverticulum. Surgery was late last evening per Dr Lara. ostomy appliance intact. stoma appears to sit at or just above the skin level. stoma is dark pink in color. midline surgical dressing is D&I. MERCEDES drain to the right lower abdomen with dressing D&I. Will plan for ostomy teaching with patient and . patient very tired this am since surgery was so late in the evening. patient states he may have slept maybe 2 hours last night. pt denies further needs at this time.
--- NOTE | 2023-02-27 08:18 | PN.SURG_ITS ---
Subjective Subjective Patient seen and examined during AM rounds and again in the afternoon. He reports some minor incisional pain. He denies much of an appetite this morning. Nursing contacted me in between visits to let me know that patient had a spell where he felt like he would faint, but they got him to bed and checked his vital s finding mild hypotension. A bolus was given and he reported feeling improved. Objective Data Objective Data Vital Signs: Vital Signs Temp Pulse Resp BP Pulse Ox O2 Del Method O2 Flow Rate 99.3 F H 90 18 114/75 89 Room Air 2 02/27/23 04:06 02/27/23 04:06 02/27/23 04:06 02/27/23 04:06 02/27/23 04:06 02/27/23 07:46 02/27/23 04:06 Oxygen Flow Rate (L/min) 2 Oxygen Delivery Method Room Air Weight: 184 lb 11.958 oz Body Mass Index (BMI) 28.9 Intake & Output: Intake and Output for Last 24 Hours 02/25/23 02/26/23 02/27/23 23:59 23:59 23:59 Intake Total 2650 / 2650 84.5 / 84.5 Output Total 240 / 240 1045 / 1045 Balance 2410 / 2410 -960.5 / -960.5 Lab / Micro Data 02/27/23 06:00 02/27/23 06:00 Labs: Laboratory Results - last 24 hr 02/26/23 10:50: WBC 23.4 H, RBC 4.83, Hgb 13.8, Hct 43.6, MCV 90.3, MCH 28.6, MCHC 31.7 L, RDW Std Deviation 46.5 H, RDW Coeff of [place] 14.1, Plt Count 320, MPV 9.1, Immature Gran % (Auto) 0.900, Neut % (Auto) 88.8 H, Lymph % (Auto) 6.0 L, [place] % (Auto) 4.1, Eos % (Auto) 0.0, Baso % (Auto) 0.2, Absolute Neuts (auto) 20.8 H, Absolute Lymphs (auto) 1.40, Nucleated RBC % 0, Differential Comment COMMENT, Sodium 139, Potassium 3.8, Chloride 107, Carbon Dioxide 27.0, Anion Gap 5, BUN 25 H, Creatinine 1.16, Estim Creat Clear Calc 54.61, Est GFR (MDRD) Af Amer 80, Est GFR (MDRD) Non-Af 66, BUN/Creatinine Ratio 21.6 H, Glucose 195 H, Calcium 8.7 02/26/23 11:10: Urine Color Yellow, Urine Clarity Clear, Urine pH 6.0, Ur Specific [place] 1.025, Urine Protein 15 H, Urine Glucose (UA) Normal, Urine Ketones Negative, Urine Occult Blood 25 H, Urine Nitrite Negative, Urine Bilirubin Negative, Urine Urobilinogen Normal, Ur Leukocyte Esterase Negative, Urine RBC 0 SEEN, Urine WBC 0 SEEN, Ur Squamous Epith Cells 0 SEEN, Urine Bacteria 0 SEEN, Urine Mucus 0 SEEN 02/27/23 06:00: WBC 22.2 H, RBC 4.55 L, Hgb 13.0, Hct 41.1, MCV 90.3, MCH 28.6, MCHC 31.6 L, RDW Std Deviation 47.3 H, RDW Coeff of [place] 14.4, Plt Count 287, MPV 9.7, Immature Gran % (Auto) 0.500, Neut % (Auto) 84.5 H, Lymph % (Auto) 6.5 L, [place] % (Auto) 8.3, Eos % (Auto) 0.0, Baso % (Auto) 0.2, Absolute Neuts (auto) 18.8 H, Absolute Lymphs (auto) 1.44, Nucleated RBC % 0, Sodium 139, Potassium 3.8, Chloride 107, Carbon Dioxide 25.0, Anion Gap 7, BUN 18, Creatinine 1.01, Estim Creat Clear Calc 62.72, Est GFR (MDRD) Af Amer 94, Est GFR (MDRD) Non-Af 77, BUN/Creatinine Ratio 17.8, Glucose 118 H, Calcium 7.6 L Radiography Diagnostic Testing: Radiology Impression Abdomen/Pelvis CT 02/26/23 10:48 IMPRESSION: Acute sigmoid diverticulitis with inflammatory changes in the pelvis as well as adjacent small bowel loops. Localized perforation in the sigmoid with a Jovon. Small amount of free air is seen in the peritoneum. Electronically Signed: Abe Lloyd MD at 12:20 EDT , Physical Exam Const oriented x3 Resp normal respiratory effort GI GI Narrative: Minimally distended, operative dressings intact without drainage, right lower quadrant drain with serosanguineous output, left lower quadrant colostomy with healthy, well perfused mucosa. There is some bowel sweat in the bag. Assessment & Plan Assessment/Plan (1) Diverticulitis of colon with perforation: PLAN: Patient is a 72-year-old male who is postoperative day 1 from laparoscopic sigmoid colectomy with creation of end colostomy due to prior presentation with free air and evidence of peritonitis. Overall he is recovering as expected with some postoperative discomfort yet he initially reports this is rather minimal. His appetite is not yet returned, but he denies any nausea. Hemoglobin is within 1 g/dL of what it was preop. Olguin catheter was left in place following the operation for accurate ins and outs monitoring but was discontinued this morning and we are awaiting spontaneous void. Neuro: As needed morphine, add scheduled Toradol Pulm/CV: Incentive spirometer, monitor blood pressure every 8 hours FEN/GI: AM labs, advance to clear liquid diet, monitor for signs of bowel function : Monitor for spontaneous void post Olguin removal Heme/ID: Trend CBC, follow-up operative cultures and micro Endo: History of recent steroid use Proph: SCDs, consider addition of Lovenox tomorrow if hemoglobin stable Dispo: Continue inpatient care Charges/Coding Visit Charges Inpatient E&M: 79726 Subs Hosp L2
[2023-02-27 08:31] LABS: Differential Comment SCANNED
--- NOTE | 2023-02-27 10:28 | CASEMGMT ---
TESS HURTADO Assessment: Face to Face with pt for initial transition planning/care coordination assessment. RN BRYANT introduced self and role at [facility], pt voices understanding and consents to assessment. Pt is A&O x4 and answers all questions appropriately at this time. Pt sitting up in chair in no distress with at bedside. Care providers, pharmacy, and demographics verified/updated. Admitting Dx: acute diverticulitis with perforation PCP:Arleen Specialists:[facility]; Kayli pulvalerie; Phyllis, rheum Preferred Pharmacy: [facility] Insurance: [facility] Supp Prescription Benefit: yes LNOK: Chantelle Moe, Living Arrangements: Pt lives with in a two story home with 1 step to enter. Pt reports he is I in ADL's and denies concerns at home. Transportation: Pt drives self and denies concerns with transportation. DME:walker, polar care, crutches HHC/SNF: Denies hx of Pt states no concerns with going home at time of dc. Pt does not use AD for ambulation. Pt states no further concerns/needs. CM to follow. Advised pt to ask CM if any further question/concerns/needs arise, voices understanding. Pt Goal: Home Plan: Home
[2023-02-27] MEDS: 0.9% Normal Saline (500mL Bag) 500 ML 999 ML IV (11:04)
[2023-02-27] MEDS: 0.9% Saline Lock 10 ML Syringe IV ×2 (12:15→17:25)
[2023-02-27] MEDS: Ketorolac 15 MG/ML Vial IV (17:25)
[2023-02-28] MEDS: 0.9% Normal Saline (1000mL) 1,000 ML 100 ML IV ×3 (00:23→20:26)
[2023-02-28] MEDS: Ketorolac 15 MG/ML Vial IV ×5 (01:57→23:09)
[2023-02-28 02:00] VITALS: BP 117/76; PULSE 73; RESP 16; TEMP 36.7; O2SAT 95
[2023-02-28 06:47] LABS: Absolute Neutrophil Count 14.5 X10^3/uL (2.0-7.7); Basophil# 0.03 X10^3/uL; Basophil% 0.2 % (0-1); Eosinophil# 0.26 X10^3/uL; Eosinophils% 1.5 % (0-5); Hematocrit 39.5 % (40-54); Hemoglobin 12.6 g/dL (13.0-16.5); Lymphocyte % 8.4 % (19-41); Mean Corp Hgb Conc 31.9 g/dL (32-36); Mean Corpuscular Hgb 29.1 pg (27.0-32.0); Mean Corpuscular Volume 91.2 fL (80-94); Mean Platelet Vol. 9.5 fl (6.2-12.0); Monocyte# 1.47 X10^3/uL; Monocyte% 8.2 % (0-10); NRBC Flagged by Analyzer 0 % (0-5); Neutrophil # 14.49 X10^3/uL (2.7-7.7); Neutrophil % 81.1 % (47-70); Platelet Count 233 K/mm3 (150-450); RBC Distribution Width CV 14.5 % (11.6-14.6); RBC Distribution Width SD 48.6 fl (35.1-43.9); Red Blood Count 4.33 M/mm3 (4.6-6.2); White Blood Count 17.9 K/mm3 (4.4-11.0)
[2023-02-28] MEDS: Piperacil/Tazobactam 3.375 GM in 0.9% Normal Saline (50mL MB+) 50 ML IV ×3 (06:50→23:08)
[2023-02-28 07:14] LABS: Anion Gap 4 (5-15); BUN 17 mg/dL (7-18); BUN/Creat Ratio 16.2 RATIO (10-20); Calcium,Total 7.5 mg/dL (8.5-10.1); Chloride 110 mmol/L (98-107); Creatinine, Serum 1.05 mg/dL (0.70-1.30); EST Glomerular Filtration Rate 74 mL/min (>60); Est Glom Filt Rate - Afr Amer 89 mL/min (>60); Estimated Creatinine Clearance 60.33 ml/min; Glucose 107 mg/dL (74-106); Magnesium 2.2 mg/dL (1.6-2.6); Phosphorus 1.7 mg/dL (2.5-4.9); Potassium 3.7 mmol/L (3.5-5.1); Sodium Level 141 mmol/L (136-145)
[2023-02-28 08:24] VITALS: BP 118/79; PULSE 76; RESP 16; TEMP 37.1; O2SAT 96
--- NOTE | 2023-02-28 08:54 | PCM.PN.SRG ---
Subjective Subjective Patient reports no pain. He is having output from his colostomy. He denies nausea or vomiting with a clear liquid diet. Objective Data Objective Data Vital Signs: Vital Signs Temp Pulse Resp BP Pulse Ox O2 Del Method O2 Flow Rate 98.7 F 76 16 118/79 96 Room Air 2 02/28/23 08:24 02/28/23 08:24 02/28/23 08:24 02/28/23 08:24 02/28/23 08:24 02/28/23 08:25 02/27/23 10:14 Oxygen Flow Rate (L/min) 2 Oxygen Delivery Method Room Air Weight: 184 lb 11.958 oz Body Mass Index (BMI) 28.9 Intake & Output: Intake and Output for Last 24 Hours 02/26/23 02/27/23 02/28/23 23:59 23:59 23:59 Intake Total 2650 / 2650 2087.84 / 2087.84 1050 / 1050 Output Total 240 / 240 1970 / 2620 1615 / 1615 Balance 2410 / 2410 117.84 / -532.16 -565 / -565 Lab / Micro Data 02/28/23 06:09 02/28/23 06:09 Labs: Laboratory Results - last 24 hr 02/28/23 06:09: WBC 17.9 H, RBC 4.33 L, Hgb 12.6 L, Hct 39.5 L, MCV 91.2, MCH 29.1, MCHC 31.9 L, RDW Std Deviation 48.6 H, RDW Coeff of [place] 14.5, Plt Count 233, MPV 9.5, Immature Gran % (Auto) 0.600, Neut % (Auto) 81.1 H, Lymph % (Auto) 8.4 L, [place] % (Auto) 8.2, Eos % (Auto) 1.5, Baso % (Auto) 0.2, Absolute Neuts (auto) 14.5 H, Absolute Lymphs (auto) 1.50, Nucleated RBC % 0, Sodium 141, Potassium 3.7, Chloride 110 H, Carbon Dioxide 27.0, Anion Gap 4 L, BUN 17, Creatinine 1.05, Estim Creat Clear Calc 60.33, Est GFR (MDRD) Af Amer 89, Est GFR (MDRD) Non-Af 74, BUN/Creatinine Ratio 16.2, Glucose 107 H, Calcium 7.5 L, Phosphorus 1.7 L, Magnesium 2.2 Micro: Microbiology 02/26/23 Unknown Incision/Surgical Site Gram Stain - Final 02/26/23 Unknown Incision/Surgical Site Wound Culture - Preliminary Gram positive organism Gram positive organism#2 Presumptive C albicans Physical Exam Const oriented x3 and no apparent distress Resp normal respiratory effort GI soft to palpation and non-tender Assessment & Plan Assessment/Plan (1) Diverticulitis of colon with perforation: PLAN: The patient is having output from his colostomy. I will increase him to a full liquid diet today and continue this until tomorrow. The patient is tolerating clears and I will also start Lovenox. I replace his phosphorus and will recheck in the morning. I will also decrease his IV fluids. Continue antibiotics. Israel De León MD Pager: [facility] [address] [place] [address], [address] [place] [address] Office:
[2023-02-28] MEDS: Potassium Phosphate 30 MM in 0.9% Normal Saline (250mL Bag) 250 ML 42 MM IV (09:34)
[2023-02-28] MEDS: Enoxaparin 40 MG/0.4 ML Syringe SC (09:36)
[2023-02-28 10:57] VITALS: BP 122/81; PULSE 78; O2SAT 96
[2023-02-28] MEDS: Losartan Potassium 50 MG Tablet PO (10:59)
[2023-02-28] MEDS: 0.9% Saline Lock 10 ML Syringe IV ×3 (12:52→23:09)
[2023-02-28] MEDS: Acetaminophen 325 MG Tablet 650 MG PO (14:09)
[2023-02-28 17:13] VITALS: BP 128/87; PULSE 78; RESP 18; TEMP 37.2; O2SAT 97
[2023-02-28 20:46] VITALS: PULSE 93; RESP 18
[2023-02-28] MEDS: Albuterol 2.5 MG/3 ML VIAL.NEB. INHALATION (20:46)
[2023-02-28] MEDS: 0.9% Normal Saline (250mL Bag) 250 ML 15 ML IV (23:08)
[2023-02-28 23:24] VITALS: BP 127/77; PULSE 94; RESP 16; TEMP 36.6; O2SAT 94
[2023-03-01] VITALS (7 sets, daily range): BP systolic 111–139; BP diastolic 76–89; PULSE 66–84; RESP 16–18; TEMP 36.4–37.3; O2SAT 94–100
[2023-03-01] MEDS: Acetaminophen 325 MG Tablet 650 MG PO (01:27)
[2023-03-01] MEDS: Piperacil/Tazobactam 3.375 GM in 0.9% Normal Saline (50mL MB+) 50 ML IV ×3 (05:37→20:37)
[2023-03-01] MEDS: Ketorolac 15 MG/ML Vial IV ×3 (05:37→18:13)
[2023-03-01] MEDS: 0.9% Saline Lock 10 ML Syringe IV ×3 (05:40→13:28)
[2023-03-01] MEDS: Calcium Carbonate 500 MG Tablet 1000 MG PO (08:04)
[2023-03-01 08:08] LABS: Absolute Lymphocyte Count 1.56 X10^3/uL (0.83-4.51); Absolute Neutrophil Count 12.1 X10^3/uL (2.0-7.7); Basophil# 0.08 X10^3/uL; Basophil% 0.5 % (0-1); Eosinophil# 0.82 X10^3/uL; Eosinophils% 5.2 % (0-5); Hematocrit 40.7 % (40-54); Lymphocyte # 1.56 X10^3/ul (0.83-4.51); Lymphocyte % 9.8 % (19-41); Mean Corp Hgb Conc 31.9 g/dL (32-36); Mean Corpuscular Hgb 29.1 pg (27.0-32.0); Mean Corpuscular Volume 91.1 fL (80-94); Mean Platelet Vol. 9.8 fl (6.2-12.0); Monocyte% 7.6 % (0-10); NRBC Flagged by Analyzer 0 % (0-5); Neutrophil # 12.07 X10^3/uL (2.7-7.7); Neutrophil % 76.1 % (47-70); Platelet Count 337 K/mm3 (150-450); RBC Distribution Width CV 14.4 % (11.6-14.6); RBC Distribution Width SD 47.9 fl (35.1-43.9); Red Blood Count 4.47 M/mm3 (4.6-6.2); White Blood Count 15.9 K/mm3 (4.4-11.0)
--- NOTE | 2023-03-01 08:09 | PN.SURG_ITS ---
Subjective Subjective The patient reports that with full liquids he was feeling some bloating yesterday. He is still having copious output from his colostomy. His pain is well controlled. Objective Data Objective Data Vital Signs: Vital Signs Temp Pulse Resp BP Pulse Ox O2 Del Method O2 Flow Rate 97.5 F L 66 18 116/78 98 Room Air 2 03/01/23 07:56 03/01/23 07:56 03/01/23 07:56 03/01/23 07:56 03/01/23 07:56 03/01/23 07:56 02/27/23 10:14 Oxygen Flow Rate (L/min) 2 Oxygen Delivery Method Room Air Weight: 184 lb 11.958 oz Body Mass Index (BMI) 28.9 Intake & Output: Intake and Output for Last 24 Hours 02/27/23 02/28/23 03/01/23 23:59 23:59 22:59 Intake Total 2087.84 / 2087.84 4510 / 4510 160 / 160 Output Total 1970 / 2620 2250 / 2250 765 / 765 Balance 117.84 / -532.16 2260 / 2260 -605 / -605 Lab / Micro Data 03/01/23 06:30 02/28/23 06:09 Labs: Laboratory Results - last 24 hr 03/01/23 06:30: WBC 15.9 H, RBC 4.47 L, Hgb 13.0, Hct 40.7, MCV 91.1, MCH 29.1, MCHC 31.9 L, RDW Std Deviation 47.9 H, RDW Coeff of [place] 14.4, Plt Count 337, MPV 9.8, Immature Gran % (Auto) 0.800, Neut % (Auto) 76.1 H, Lymph % (Auto) 9.8 L, [place] % (Auto) 7.6, Eos % (Auto) 5.2 H, Baso % (Auto) 0.5, Absolute Neuts (auto) 12.1 H, Absolute Lymphs (auto) 1.56, Nucleated RBC % 0 Micro: Microbiology 02/26/23 Unknown Incision/Surgical Site Gram Stain - Final 02/26/23 Unknown Incision/Surgical Site Wound Culture - Preliminary Gram positive organism Gram positive organism#2 Presumptive C albicans Physical Exam Const oriented x3 and no apparent distress Resp normal respiratory effort GI soft to palpation Palpation: tender Assessment & Plan Assessment/Plan (1) Diverticulitis of colon with perforation: PLAN: The patient is having output from his colostomy. His abdomen feels soft and nontender he is currently not having any tenderness he only said he felt bloating after taking his liquids yesterday. I will not advance his diet and discontinue onward as we are. The patient will see the colostomy nurse tomorrow to discuss colostomy care. MERCEDES output is serous. Likely will be able to advance to regular diet tomorrow. Irsael De León MD Pager: [facility] [address] [place] [address], [address] [place] [address] Office:
[2023-03-01 09:15] LABS: Anion Gap 7 (5-15); BUN 21 mg/dL (7-18); BUN/Creat Ratio 20.4 RATIO (10-20); Calcium,Total 8.4 mg/dL (8.5-10.1); Chloride 109 mmol/L (98-107); Creatinine, Serum 1.03 mg/dL (0.70-1.30); EST Glomerular Filtration Rate 76 mL/min (>60); Est Glom Filt Rate - Afr Amer 91 mL/min (>60); Glucose 115 mg/dL (74-106); Magnesium 2.3 mg/dL (1.6-2.6); Phosphorus 3.1 mg/dL (2.5-4.9); Potassium 3.6 mmol/L (3.5-5.1); Sodium Level 140 mmol/L (136-145)
[2023-03-01] MEDS: Pantoprazole Sodium 40 MG in 0.9% Normal Saline (100mL MB+) 100 ML 330 MG IV (10:17)
[2023-03-01] MEDS: Enoxaparin 40 MG/0.4 ML Syringe SC (10:18)
[2023-03-01] MEDS: Losartan Potassium 50 MG Tablet PO (10:23)
[2023-03-01] MEDS: 0.9% Normal Saline (1000mL) 1,000 ML 40 ML IV (20:37)
[2023-03-02] MEDS: Ketorolac 15 MG/ML Vial IV ×2 (00:44→06:40)
[2023-03-02] MEDS: 0.9% Saline Lock 10 ML Syringe IV (00:44)
[2023-03-02 01:08] VITALS: BP 124/84; PULSE 69; RESP 16; TEMP 36.9; O2SAT 97
[2023-03-02] MEDS: Acetaminophen 325 MG Tablet 650 MG PO (04:22)
[2023-03-02 04:28] VITALS: BP 134/73; PULSE 64; RESP 16; TEMP 36.4; O2SAT 100
[2023-03-02] MEDS: Piperacil/Tazobactam 3.375 GM in 0.9% Normal Saline (50mL MB+) 50 ML IV (06:39)
--- NOTE | 2023-03-02 08:06 | NURSING ---
MERCEDES taken out at this time by Arlyn CRANE. Dr. Lara and Arlyn are in the room with the pt at this time.
[2023-03-02] MEDS: Enoxaparin 40 MG/0.4 ML Syringe SC (08:19)
[2023-03-02 08:22] VITALS: BP 124/76; PULSE 72; RESP 18; TEMP 36.8; O2SAT 97
[2023-03-02 08:43] LABS: Pathologist Review Reviewed
--- NOTE | 2023-03-02 09:42 | DS.PCM_ITS ---
Providers Date of Admission: 02/26/23 Primary Care Physician: Dr. Terri Bacon, DO Consultations 02/27/23 13:23 Consult: Onc/Wound/desizing machine offbearer Routine Comment: Reason for Consult:: new colostomy Reason For Visit: ACUTE DIVERTICULITIS WITH PERFORATION Diagnosis Discharge Diagnosis (1) Diverticulitis of colon with perforation: Status: Acute Code(s): K57.20 - Diverticulitis of large intestine with perforation and abscess without bleeding Plan: I am seeing this patient in conjunction with Dr. Lara. Patient has failed outpatient treatment for diverticulitis and will need admission. Patient's white count is elevated and CT scan of the abdomen/pelvis is demonstrating perforation of the sigmoid diverticulitis previous seen on CT scan. Due to patient receiving steroids for the hives that he developed from the antibiotics, this has likely contributed to the elevation of the patient's white blood count and perforation of the colon. Plan is to admit, start IV antibiotics and fluids, and bowel rest. I have discussed with the patient and his that if conservative measures fail, he may need surgical intervention which comes with a risk of an ostomy creation. Patient is agreeable to admission and would be agreeable to surgical intervention if recommended. Patient has had the opportunity to ask and have questions answered. Patient verbally understands and agrees with the plan. Thank you for llowing us to participate in this patient's care. Dr. Lara will also evaluate this patient independently. Medications at Discharge Home Medications losartan 50 mg tablet 50 mg PO DAILY 12/02/20 montelukast 10 mg tablet 10 mg PO DAILY 12/02/20 cholecalciferol (vitamin D3) 25 mcg (1,000 unit) tablet (Vitamin D3) 125 mcg PO DAILY 04/22/21 fluticasone propionate 50 mcg/actuation nasal spray,suspension 2 spray intranasal DAILY 04/22/21 tumeric 100 mg-chadd 150 mg-olive 50 mg-oreg 150 mg-caprylate capsule 1 cap PO DAILY 04/22/21 albuterol sulfate 90 mcg/actuation aerosol inhaler (Ventolin HFA) 1 puff inhalation Q4H PRN shortness of breath or wheezing 02/17/23 azelastine 137 mcg (0.1 %) nasal spray aerosol 1 spray intranasal DAILY 02/17/23 budesonide 1 mg/2 mL suspension for nebulization 1 mg irrigation DAILY nasal polps 02/26/23 acetaminophen 325 mg tablet 650 mg (2 x 325 mg) PO Q6H PRN PRN Pain 1-10 Or Fever >100.7 #0 tabs 03/02/23 amoxicillin 875 mg-potassium clavulanate 125 mg tablet 1 tab PO BID 11 days #22 tabs 03/02/23 tramadol 50 mg tablet 50 mg PO Q8H PRN pain 3 days #10 tabs 03/02/23 Hospital Course Operations - (Laparoscopic sigmoid colectomy with end colostomy creation ) Summary of Care Provided Minutes Spent on Discharge: 30 Hospital Course: Patient is a 72 y/o M who presented with worsening left lower quadrant pain, low pelvic pain following a recent diagnosis of acute diverticulitis. CT scan of the abdomen/pelvis demonstrated acute sigmoid diverticulitis with perforation. Dr. Lara performed an emergent Laparoscopic sigmoid colectomy with end colostomy on 02/26. Patient had an uneventful hospitalization. Patient was maintained on IV Zosyn throughout his hospitalization without any complications or side effects. Patient was treated with prednisone as an outpatient prior to his hospitalization for a reaction to the previous course of antibiotics. Patient's prednisone was discontinued as this was likely the culprit to the colon perforation. Upon discharge, patient's colostomy had loose solid green/brown output. Patient was not distended, non-tender. He denies nausea, vomiting, fever. He is tolerating a regular diet. MERCEDES drain was removed on the day of discharge. Physical Exam GI GI Narrative: Abdomen- incisions c/d/i. No erythema was noted. MERCEDES drain was removed at bedside. Single suture remained in place. Gauze dressing was applied and secured with medipore tape. Ostomy with green/brown output noted. Positive bowel sounds. Weight / BMI Weight Weight: 184 lb 11.958 oz Body Mass Index (BMI) 28.9 ABG / Lab / Microbiology Data 03/01/23 06:30 03/01/23 06:30 Laboratory: Laboratory Results - last 24 hr 02/27/23 06:00: Diff Path Review Reviewed Microbiology: Microbiology 02/26/23 Unknown Incision/Surgical Site Gram Stain - Final 02/26/23 Unknown Incision/Surgical Site Wound Culture - Preliminary Gram positive organism Gram positive organism#2 Presumptive C albicans D/C Instructions Discharge Diet: Light diet - advance as tolerated Discharge Activity: May Drive (3 days from discharge) and [place] (today. ) Lifting Restricted to (Lbs): 10 Lifting Restrictions: No lifting greater than 15 pounds for 2 weeks Call your doctor if your incision/area has: Continuous Slow Oozing, Sudden Increased Bleeding, Increased Pain/ Swelling, Increased Redness, Foul Smelling Discharge and Swelling at the incision site Call your doctor if you observe: Fever of 101 or Higher Change Dressing in: 1 day (At the drain site. You will no longer have to cover the incision where the drain site was after 48 hours) Cleanse incision/area with: Soap & Water Additional Dressing/Incision Instructions: Ostomy training was completed by our wound/stoma nurse, Mimi, in the hospital. If you have any additional questions or concerns, please call our office. Please Follow Up With: Kvng Lara MD When: Please contact our office to follow-up in 10 days. Our office number is [phone] option 1 for an appointment. Meaningful Use Info Meaningful Use Diagnoses (Choose all that apply): None applicable Discharge Plan Admission Admit Date/Time: 02/26/23 12:12 Primary Reason for Your Visit: Acute diverticulitis with perforation Attending Provider: Kvng Lara Primary Care Provider: Terri Bacon Instructions Additional Instructions / Restrictions: You will be prescribed Tramadol as needed for pain. If you do not need a medication that strong, you may alternate between Tylenol and Ibuprofen. Tylenol will be every 6 hours as needed throughout the day and alternate with Ibuprofen every 8 hours as needed for pain. Discharge Orders/Prescriptions Prescriptions: New acetaminophen 325 mg Tablet 650 mg PO Q6H PRN PRN (Reason: Pain 1-10 Or Fever >100.7) Qty: 0 0RF amoxicillin-pot clavulanate 875-125 mg tablet 1 tab PO BID 11 Days Qty: 22 0RF tramadol 50 mg tablet 50 mg PO Q8H PRN (Reason: pain) 3 Days Qty: 10 0RF Continued losartan 50 mg tablet 50 mg PO DAILY Hold Instructions: Resume on 02/28/23. montelukast 10 mg tablet 10 mg PO DAILY fluticasone propionate 50 mcg/actuation [place],Suspension 2 spray INTRANASAL DAILY cholecalciferol (vitamin D3) [Vitamin D3] 25 mcg (1,000 unit) Tablet 125 mcg PO DAILY wrpbfyt-mxlk-gmjgp-oreg-capryl 100 mg-150 mg- 50 mg-150 mg Capsule 1 cap PO DAILY azelastine 137 mcg (0.1 %) aerosol,spray 1 spray INTRANASAL DAILY albuterol sulfate [Ventolin HFA] 90 mcg/actuation HFA aerosol inhaler 1 puff INHALATION Q4H PRN (Reason: shortness of breath or wheezing) Patient Comments: Inhale 2 puff using inhaler every six hours as needed budesonide 1 mg/2 mL suspension for nebulization 1 mg irrigation DAILY Patient Comments: INHALE 1 VIAL USING NEBULIZER TWICE DAILY Discontinued ciprofloxacin HCl 500 mg tablet 500 mg PO Q12H 9 Days Qty: 19 0RF Rx Instructions: first dose night of 02/17 metronidazole 500 mg Tablet 500 mg PO TID 9 Days Qty: 28 0RF prednisone 20 mg tablet 20 mg PO DAILY Referrals / Follow Up: Terri Bacon DO [Primary Care Provider] - Kvng Lara MD [Med Staff - Active Staff] - (Please call our office to schedule a follow-up for 10 days from discharge) Disposition Disposition (needs filled in before D/C Order can be placed): Home, Self Care Charges/Coding Visit Charges Inpatient E&M: 81623 Disch Hosp (No charge; post-op)
--- NOTE | 2023-03-02 10:20 | CASEMGMT ---
Addendum entered by Stephani Hendrickson 03/02/23 11:35: TESS HURTADO in to pt. room (pt's is also present) to inform them that [facility] has accepted pt for SN HHC and said there is a possible start date of 03/03/2023 and that they will be calling pt. to set up a time. Pt. and voice understanding and deny having any additional questions/concerns about discharge at this time. Addendum entered by Stephani Hendrickson 03/02/23 10:32: TESS HURTADO called [facility] intake to see if they could accept pt. for HHC SN. [facility] state they will accept pt. with a possible start date of 03/03/2023. Original Note: Pt. has order for discharge. TESS HURTADO in to room to discuss needs at discharge; pt. is sitting up in chair and his is also present in the room. Pt. denies having needs and states he feels confident in caring for his new ostomy. Pt's voices concern that it may be a good idea to have [facility] for a bit to assist pt. with his ostomy for a while. Pt. is agreeable to [facility] for this. TESS HURTADO provided a list of [facility] providers including quality and resource use data and consistent with the patient?s preferred geographic region, medical needs, and insurance network were provided from the [employer] Guide. Pt. provides his top 3 choices as (1) [facility], (2) [facility] in [place], and (3) [facility] in [place]. TESS HURTADO informed pt. that I will start maing referral to these [facility] agencies. Pt. denies having any questions/concerns at this time.
--- NOTE | 2023-03-02 12:03 | CASEMGMT ---
TESS HURTADO faxed ostomy supply prescription order form to [facility].
--- NOTE | 2023-03-02 12:51 | WOUNDNOTE ---
In to do ostomy teaching with patient and . patient was able to demonstrate how to empty and clean the appliance. the appliance was changed with patient and . the was able to change the appliance with minimal prompting. the patient and both had lots of questions. all questions answered. both state they feel much more comfortable with caring for the appliance. both very appreciative of care. aware to call if further needs or questions arise.
== END 2023-03-02 13:24 | disposition home or self-care (01) | DRG 329 ==
LOC: ED 11:46 → MS3 14:37
PROVIDERS: Physician Assistant; Surgery; Admitting Provider Surgery; Emergency Provider Emergency Medicine; PCP Internal Medicine; Visit Provider Surgery
PROC: 0DBN4ZZ Excision of Sigmoid Colon, Percutaneous Endoscopic Approach (ICD-10-PCS; CPT 49320; principal; 2023-02-26 19:30)
DX: K57.20 Diverticulitis of large intestine with perforation and abscess without bleeding (principal); K65.9 Peritonitis, unspecified; M35.3 Polymyalgia rheumatica; I10 Essential (primary) hypertension
CPT/HCPCS: 36415; 74177; 80048; 80053; 81001; 82248; 83735; 84100; 85025; 87070; 87075; 87077; 87186; 87205; 88305; 94640; 94668; 97802; 99252; 99284; J7030; J7040; J7050; J7120; Q9967; A4216; G0463; J2405; J3490

== ENCOUNTER 2023-05-07 06:20 | Day surgery (SDC) | payer MEDICARE, OTHER, SELFPAY ==
[2023-05-07] VITALS (7 sets, daily range): BP systolic 86–113; BP diastolic 58–79; PULSE 70–85; RESP 16–18; TEMP 36.2–36.7; O2SAT 94–99; BMI 29.2
[2023-05-07] MEDS: Lactated Ringers 1,000 ML 15 ML IV (06:47)
--- NOTE | 2023-05-07 07:30 | COLBX_PTH ---
PATHOLOGY RESULTS PATIENT: ALEIDA HOWARD LOC: EN U#:[id number] AGE/SX: 72/M ROOM: RE05/07/[address]: Dr. Kvng Lara MD : 1950 BED: DIS: 05/07/2023 SPEC #: [id number] RECD: 05/07/23 10:46 STATUS: JUDY ALAN #: [id number] FLACO: 05/07/23 07:[address]: Kvng Lara DEPT: SURGICAL PATHOLOGY RECD BY: Susan Small ENTERED: 05/07/23 10:48 SP TYPE: COLON BX OTHR DR: Dr. Terri Bacon DO Tissues: COLON BIOPSY Ileum, NOS Transverse colon COLON BIOPSY Procedures: Surgery Specimen Level IV HEADER OPERATION: Colonoscopy with biopsies and polypectomy PRE-OP DIAGNOSIS: Status post partial colectomy TISSUE SUBMITTED: A - Mucosal ulceration biopsy, B - Lipomatous ileocecal valve biopsy, C - Transverse colon polyp biopsy, D - Stoma polyp MICROSCOPIC DIAGNOSIS A. Mucosal ulceration, biopsy: Fragments of colonic mucosa with mild acute inflammation. See comment. B. Lipomatous ileocecal valve, biopsy: Fragments of colonic mucosa, no pathologic diagnosis. C. Transverse colon polyp, biopsy: A polypoid fragment of benign colonic mucosa. D. Stoma polyp, polypectomy: Inflammatory polyp. SJ:rg 05/08/2023 COMMENT A. Focal cryptitis is noted. Crypt abscesses or granulomas are not seen. Clinical correlation and appropriate follow up are necessary. MICROSCOPIC DESCRIPTION Slides are reviewed. GROSS DESCRIPTION A - Received in fixative is one container labeled with the patient's name and designated mucosal ulceration biopsy. The specimen consists of multiple irregular fragments of light marin soft tissue that in aggregate measure 0.6 x 0.3 x 0.1 cm. The specimen is totally submitted in one cassette. B - Received in fixative is one container labeled with the patient's name and designated lipomatous ileocecal valve biopsy. The specimen consists of two irregular fragments of light marin soft tissue that in aggregate measure 0.6 x 0.2 x 0.1 cm. The specimen is totally submitted in one cassette. C - Received in fixative is one container labeled with the patient's name and designated transverse colon polyp biopsy. The specimen consists of one irregular fragment of light marin soft tissue that measures 0.3 x 0.3 x 0.1 cm. The specimen is totally submitted in one cassette. D - Received in fixative is one container labeled with the patient's name and designated stoma polyp. The specimen consists of a marin-pink polyp measuring 0.9 x 0.5 x 0.3 cm. The specimen is totally submitted in one cassette. / SJ:rg 05/07/2023 TC:5 CPT: 76050 x4
--- NOTE | 2023-05-07 07:31 | PCM.HP.BLA ---
History and Physical Date of Admission: 05/07/23 Date of Service: 03/12/23 MR#: [id number] Acct: [id number] Name: ALEIDA HOWARD Rep #: [id number] : 1950 Provider: Dr. 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 Required: No Accompanied by: Is patient in pain?: No Allergies ciprofloxacin Allergy (Severe, Verified 03/12/23 12:38) Hivesmetronidazole [From Flagyl] Allergy (Severe, Verified 03/12/23 12:38) Hivesdupilumab [From Dupixent Pen] Adverse Reaction (Verified 03/12/23 12:38) syncope Medications losartan 50 mg tablet 50 mg PO DAILY 12/02/20 [History Confirmed 03/12/23] montelukast 10 mg tablet 10 mg PO DAILY 12/02/20 [History Confirmed 03/12/23] cholecalciferol (vitamin D3) 25 mcg (1,000 unit) tablet (Vitamin D3) 125 mcg PO DAILY 04/22/21 [History Confirmed 03/12/23] fluticasone propionate 50 mcg/actuation nasal spray,suspension 2 spray intranasal DAILY 04/22/21 [History Confirmed 03/12/23] tumeric 100 mg-chadd 150 mg-olive 50 mg-oreg 150 mg-caprylate capsule 1 cap PO DAILY 04/22/21 [History Confirmed 03/12/23] albuterol sulfate 90 mcg/actuation aerosol inhaler (Ventolin HFA) 1 puff inhalation Q4H PRN shortness of breath or wheezing 02/17/23 [History Confirmed 03/12/23] azelastine 137 mcg (0.1 %) nasal spray aerosol 1 spray intranasal DAILY 02/17/23 [History Confirmed 03/12/23] budesonide 1 mg/2 mL suspension for nebulization 1 mg irrigation DAILY nasal polps 02/26/23 [History Confirmed 03/12/23] acetaminophen 325 mg tablet 650 mg (2 x 325 mg) PO Q6H PRN PRN Pain 1-10 Or Fever >100.7 #0 tabs 03/02/23 [Rx Confirmed 03/12/23] amoxicillin 875 mg-potassium clavulanate 125 mg tablet 1 tab PO BID 11 days #22 tabs 03/02/23 [Rx Confirmed 03/12/23] tramadol 50 mg tablet 50 mg PO Q8H PRN pain 3 days #10 tabs 03/02/23 [Rx Confirmed 03/12/23] Subjective Details: Patient presents following laparoscopic Orozco's on 02/26/2023. Since hospital discharge they have been doing very well. They report no significant postoperative pain and reports that they only took 1 tablet of tramadol postoperatively. They had no wound concerns apart from a nylon suture that is nagging them in the position of their surgical drain. They report tolerance of a diet but states that he simply has not been able to eat the same amount that they did previously. Concerning their bowel movements, they report that these have become fairly predictable where they are emptying their colostomy twice daily around the same times. Mr. Howard has not continue to supplement protein, but is eating a well-balanced diet. He gives examples of a number of vegetables but states that he is not yet chance to trying to eat a leafy green salad. Objective Details: Constitutional: No acute distress, appreciative Abdomen: Port sites are well-healing with slight scabbing, lower midline mini laparotomy is well-healing. There is a small nylon suture that appears to be causing some local irritation to the epidermal layer at patient's port site exit wound which is now well-healed. Patient's left-sided colostomy is pink and well-perfused with thick brown stool in the colostomy appliance. There is no tenderness with palpation of the abdomen Coding Level of Care Code Global Post Op Diagnoses Status post partial colectomy Z90.49 [facility] Medical History Abdominal pain Arthritis Asthma Carpal tunnel syndrome, bilateral History of steroid therapy History of stress test Hypertension Non-smoker PMR (polymyalgia rheumatica) Surgical History History of carpal tunnel release of both wrists History of tonsillectomy and adenoidectomy Hx of appendectomy Hx of cholecystectomy Social History Smoking Status: Never smoker Assessment and Plan (No Qualifiers) Assessment and Plan (1) Status post partial colectomy: Status: Acute Comment: This is a 72-year-old male who makes his first postoperative visit following laparoscopic Orozco's procedure on 03/16/2023. He is recovering well and without any significant complaints. His notes how pleased she is with his ability to adapt to his new status and I would agree with this assessment. He is interested in having his colostomy reversed in the near future if possible. For the interim I have asked him to try to supplement protein where possible and gradually return to a regular diet. I have shared I would like to perform a colonoscopy both from below as well as thru?stoma. I have discussed a 2-day bowel prep as well as rectal enemas to accomplish this purpose. I shared that I would not plan to do this before 6 weeks postop. Given the upcoming holidays, we have resolved to plan for the middle april to perform this endoscopic evaluation. Lastly, I shared that the intent behind this procedure would be to not only examine the extent of his diverticular disease but also understand the extent of his remaining colon rectal segment distally and how much mobilization may be required at the time of surgery. Both and Mrs. Rosa expressed understanding of this information and wish to proceed as described. Plan: ? Patient encouraged to continue protein supplementation and resume a regular diet ? Diagnostic colonoscopy both via stoma as well as per rectum april I have examined the patient and the H&P has been reviewed. There are no clinical changes since date of exam. Patient is seen alongside his and confirms that he has been in his usual state of health. He confirms that he completed his prep successfully without issue. They are interested in knowing what the next steps will be out of the colonoscopy today. Mr. Howard does report that he has continued to pass gas up until 2 to 3 days ago per rectum. He had minimal output with the enema per rectum. Will plan to proceed to the endoscopy suite for through- stoma colonoscopy as discussed above.
--- NOTE | 2023-05-07 08:33 | OP.COLON_ITS ---
Patient Name: Janes Moe Procedure Date: 05/07/2023 7:26 AM Date of : 1950 Age: 72 Procedure: Colonoscopy Indications: Follow-up of diverticulitis, For endoscopic therapy of colonic perforation Providers: Kvng Lara MD Referring MD: Kvng Lara MD Medicines: See the Anesthesia note for documentation of the administered medications Patient Profile: Last Colonoscopy: within the past year. Complications: No immediate complications. Estimated blood loss: Minimal. Procedure: Pre-Anesthesia Assessment: - The heart rate, respiratory rate, oxygen saturations, blood pressure, adequacy of pulmonary ventilation, and response to care were monitored throughout the procedure. After I obtained informed consent, the scope was passed under direct vision. Throughout the procedure, the patient's blood pressure, pulse, and oxygen saturations were monitored continuously. The Colonoscope was introduced through the anus and advanced to the ileocecal valve. The colonoscopy was performed without difficulty. The patient tolerated the procedure well. The quality of the bowel preparation was adequate to identify polyps. Scope In: 7:44:06 AM Scope Withdrawal Time 0 hours 15 minutes 42 seconds Scope Out: 8:14:41 AM Total Procedure Duration Time 0 hours 30 minutes 35 seconds Findings: Skin tags were found on perianal exam. Enlarged prostate, No biopsies or other specimens were collected for this exam. A continuous area of nonbleeding ulcerated mucosa with no stigmata of recent bleeding was present in the recto-sigmoid colon. Biopsies were taken with a cold forceps for histology. Estimated blood loss was minimal. Many small and large-mouthed diverticula were found in the sigmoid colon, descending colon and transverse colon. No biopsies or other specimens were collected for this exam. The ileocecal valve was mildly lipomatous. Biopsies were taken with a cold forceps for histology. Estimated blood loss was minimal. A 7 mm polyp was found in the transverse colon. The polyp was semi-sessile. Biopsies were taken with a cold forceps for histology. Estimated blood loss was minimal. A 7 mm polyp was found in the surgical stoma. The polyp was semi-pedunculated. The polyp was removed with a hot snare. Resection and retrieval were complete. Internal hemorrhoids were found during retroflexion. The hemorrhoids were Grade II (internal hemorrhoids that prolapse but reduce spontaneously). No biopsies or other specimens were collected for this exam. Impression: - Perianal skin tags found on perianal exam. - Mucosal ulceration. Biopsied. - Diverticulosis in the sigmoid colon, in the descending colon and in the transverse colon. No specimens collected. - Lipomatous ileocecal valve. Biopsied. - One 7 mm polyp in the transverse colon. Biopsied. - One 7 mm polyp at the surgical stoma, removed with a hot snare. Resected and retrieved. - Internal hemorrhoids. No specimens collected. Recommendation: - High fiber diet today. - Continue present medications. - Await pathology results. - Repeat colonoscopy after studies are complete for surveillance based on pathology results. - Return to my office in 3 weeks. - Telephone my office for pathology results in 1 week. Procedure Code(s): --- Professional --- 18246, Colonoscopy, flexible; with removal of tumor(s), polyp(s), or other lesion(s) by snare technique 25718, 59, Colonoscopy, flexible; with biopsy, single or multiple Diagnosis Code(s): --- Professional --- K63.3, Ulcer of intestine K64.1, Second degree hemorrhoids K63.89, Other specified diseases of intestine D12.3, Benign neoplasm of transverse colon (hepatic flexure or splenic flexure) K64.4, Residual hemorrhoidal skin tags K57.32, Diverticulitis of large intestine without perforation or abscess without bleeding K63.1, Perforation of intestine (nontraumatic) K57.30, Diverticulosis of large intestine without perforation or abscess without bleeding CPT copyright 2021 [employer]. All rights reserved. The codes documented in this report are preliminary and upon coating mixer review may be revised to meet current compliance requirements. Kvng Lara MD 05/07/2023 8:32:40 AM This report has been signed electronically. Number of Addenda: 0 Note Initiated On: 05/07/2023 7:26 AM
--- NOTE | 2023-05-07 08:34 | OP.CCLET_ITS ---
05/07/2023 Terri Bacon [address] [facility] [place] [address] Re : Colonoscopy procedure for Janes Moe Dear Dr. Bacon This procedure was performed on April. My impressions and recommendations are as follows: Impressions : - Perianal skin tags found on perianal exam. - Mucosal ulceration. Biopsied. - Diverticulosis in the sigmoid colon, in the descending colon and in the transverse colon. No specimens collected. - Lipomatous ileocecal valve. Biopsied. - One 7 mm polyp in the transverse colon. Biopsied. - One 7 mm polyp at the surgical stoma, removed with a hot snare. Resected and retrieved. - Internal hemorrhoids. No specimens collected. Recommendations : - High fiber diet today. - Continue present medications. - Await pathology results. - Repeat colonoscopy after studies are complete for surveillance based on pathology results. - Return to my office in 3 weeks. - Telephone my office for pathology results in 1 week. My findings are described in the full procedure note, which is enclosed. If I can be of further assistance, please feel free to contact me at Doctor phone number(s): , Work: . Sincerely, Kvng Lara MD 05/07/2023 8:32:40 AM This report has been signed electronically.
== END 2023-05-07 09:07 | disposition home or self-care (01) ==
LOC: EN 06:21 → AC 06:23
PROVIDERS: PCP Internal Medicine; Referring Provider Surgery; Visit Provider Surgery
PROC: 0DJD8ZZ Inspection of Lower Intestinal Tract, Via Natural or Artificial Opening Endoscopic (ICD-10-PCS; CPT 45378; principal; 2023-05-07 07:25)
DX: K62.89 Other specified diseases of anus and rectum (principal); K63.1 Perforation of intestine (nontraumatic); E11.9 Type 2 diabetes mellitus without complications; K57.32 Diverticulitis of large intestine without perforation or abscess without bleeding; I10 Essential (primary) hypertension; K64.1 Second degree hemorrhoids; Z90.49 Acquired absence of other specified parts of digestive tract; J45.909 Unspecified asthma, uncomplicated; K64.4 Residual hemorrhoidal skin tags; D17.79 Benign lipomatous neoplasm of other sites; K63.5 Polyp of colon; Z79.899 Other long term (current) drug therapy; Z98.0 Intestinal bypass and anastomosis status
CPT/HCPCS: 45385; 45380; 88305; J7120; J2405

== ENCOUNTER 2023-07-01 08:20 | Inpatient (IN) | payer MEDICARE, OTHER, SELFPAY ==
[2023-06-25 13:40] LABS: Hematocrit 46.4 % (40-54); Hemoglobin 14.9 g/dL (13.0-16.5); Mean Corp Hgb Conc 32.1 g/dL (32-36); Mean Corpuscular Hgb 28.4 pg (27.0-32.0); Mean Corpuscular Volume 88.5 fL (80-94); Mean Platelet Vol. 8.9 fl (6.2-12.0); Platelet Count 232 K/mm3 (150-450); RBC Distribution Width SD 44.7 fl (35.1-43.9); Red Blood Count 5.24 M/mm3 (4.6-6.2); White Blood Count 7.6 K/mm3 (4.4-11.0)
[2023-06-25 14:16] LABS: AST(SGOT) 21 U/L (15-37); Alanine Aminotransfer ALT/SGPT 20 U/L (16-61); Albumin, Serum 3.7 g/dL (3.2-5.0); Alkaline Phosphatase 86 U/L (45-117); Bilirubin, Direct 0.18 mg/dL (0.00-0.30); Globulin 3.7 g/dL (2.2-4.2); Magnesium 2.3 mg/dL (1.6-2.6); Protein, Total 7.4 g/dL (6.4-8.2)
[2023-07-01] VITALS (11 sets, daily range): BP systolic 121–154; BP diastolic 82–95; PULSE 77–88; RESP 15–17; TEMP 36.3–36.6; O2SAT 97–100; BMI 29.0
[2023-07-01] MEDS: Magnesium 1 GM over 15 mins IV (09:10)
[2023-07-01] MEDS: Lactated Ringers 1,000 ML 40 ML IV (09:25)
[2023-07-01] MEDS: Acetaminophen 500 MG Tablet 1000 MG PO (09:26)
[2023-07-01] MEDS: Gabapentin 600 MG Tablet PO (09:26)
[2023-07-01 10:04] LABS: Bedside Glucose 129 mg/dL (74-106)
--- NOTE | 2023-07-01 10:24 | HP.PCM_ITS ---
History and Physical Date of Admission: 07/01/23 Date of Service: 05/28/23 MR#: [id number] Acct: [id number] Name: ALEIDA HOWADR Rep #: [id number] : 1950 Provider: Dr. Kvng Lara MD Age/Sex: 72/M Location: [facility] Status: Signed Intake Vital Signs 05/07/2405:48 05/28/2413:30 Height 5 ft 7 in 5 ft 7 in Weight: 186 lb 6 oz BMI 29.2 BP 143/84 H Blood Pressure Location Rt brachial Position Sitting Respiration 17 Pulse 88 Pulse Source Monitor Temp 97.6 F L Temp Source Temporal Pulse Oximetry (%) 96 Oxygen Delivery Method room air Intake Visit Reasons: 3 W S/P COLONOSCOPY Chief Complaint: 3 w s/p colonoscopy Sleeping Car Porter Required: No Accompanied by: Is patient in pain?: No Allergies ciprofloxacin Allergy (Severe, Verified 05/28/23 14:31) Hivesmetronidazole [From Flagyl] Allergy (Severe, Verified 05/28/23 14:31) Hivesdupilumab [From [employer]] Adverse Reaction (Verified 05/28/23 14:31) syncope Medications losartan 50 mg tablet 50 mg PO DAILY 12/02/20 [History Confirmed 05/07/23] montelukast 10 mg tablet 10 mg PO DAILY 12/02/20 [History Confirmed 05/07/23] cholecalciferol (vitamin D3) 25 mcg (1,000 unit) tablet (Vitamin D3) 125 mcg PO DAILY 04/22/21 [History Confirmed 05/04/23] fluticasone propionate 50 mcg/actuation nasal spray,suspension 2 spray intranasal DAILY 04/22/21 [History Confirmed 05/07/23] turmeric 100 mg-chadd 150 mg-olive 50 mg-oreg 150 mg-capryl capsule 1 cap PO DAILY 04/22/21 [History Confirmed 05/04/23] albuterol sulfate 90 mcg/actuation aerosol inhaler (Ventolin HFA) 1 puff inhalation Q4H PRN shortness of breath or wheezing 02/17/23 [History Confirmed 05/04/23] azelastine 137 mcg (0.1 %) nasal spray aerosol 1 spray intranasal DAILY 02/17/23 [History Confirmed 05/07/23] budesonide 1 mg/2 mL suspension for nebulization 1 mg irrigation DAILY nasal polps 02/26/23 [History Confirmed 05/07/23] budesonide-formoterol HFA 160 mcg-4.5 mcg/actuation aerosol inhaler (Symbicort) 2 inh inhalation BID 05/04/23 [History Confirmed 05/04/23] [facility] Medical History Abdominal pain Alcohol use Arthritis Asthma Back pain Carpal tunnel syndrome, bilateral Colostomy care Diabetes Diverticulitis of colon with perforation Easy bruising History of open sigmoidectomy History of steroid therapy History of stress test History of ulceration Hypertension Loss of hearing Non-smoker PMR (polymyalgia rheumatica) Prostate disease Restless legs Syncope Wears glasses Surgical History History of carpal tunnel release of both wrists History of tonsillectomy and adenoidectomy Hx of appendectomy Hx of cholecystectomy Hx of discectomy Social History (Updated 05/28/23 @ 14:29 by Josey Tobias LPN) Smoking Status: Never smoker alcohol intake: current alcohol intake frequency: holidays/special occasions only substance use type: does not use HPI HPI HPI: Patient presents today with his following colonoscopy earlier this month (05/07/2023). Today he presents for discussions around possible Orozco's reversal. While he continues to reiterate that he is well adjusted to his colostomy, he also reiterates that it is his intention to do proceed with reversal. He presents today with his . Together, they relay a number of questions from their mechanical applications engineer son. Mr. Howard also wishes to know whether or not this will impact the visible bulge he has observed in his lower abdomen and seems to favor the region around his colostomy. Below is recapitulated from patient's prior visit for ease of review: Patient presents following laparoscopic Orozco's on 02/26/2023. Since hospital discharge they have been doing very well. They report no significant postoperative pain and reports that they only took 1 tablet of tramadol postoperatively. They had no wound concerns apart from a nylon suture that is nagging them in the position of their surgical drain. They report tolerance of a diet but states that he simply has not been able to eat the same amount that they did previously. Concerning their bowel movements, they report that these have become fairly predictable where they are emptying their colostomy twice daily around the same times. Mr. Howard has not continue to supplement protein, but is eating a well-balanced diet. He gives examples of a number of vegetables but states that he is not yet chance to trying to eat a leafy green salad. Since the above office visit patient underwent diagnostic colonoscopy 05/07/2023. Exam Const General: cooperative and comfortable Orientation: alert, awake and oriented x3 Resp Effort & Inspection: normal respiratory effort GI Other: Well-healed mini laparotomy, slight bulging in the lower abdominal quadrants. Colostomy appliance is intact and there is stool at the stomal os. Assessment and Plan Assessment and Plan (1) Colostomy in place: Status: Acute Comment: This is a 72-year-old male who required emergent Orozco's procedure for perforated diverticulitis in early February 2023 who presents today for consideration of Orozco's reversal. Earlier this year we underwent a colonoscopy that demonstrated some residual diverticular disease?particularly in the remaining colon attached to the rectum. Today's visit centered around the proposed operation and the likelihood for recurrence after an operation. We discussed the typical postoperative course and the concept of the ERAS pathway for not only early mobilization but also early return to diet. And Mrs. Howard have a number of concerns related to the management of his steroids, but at this point it appears he is simply taking locally?acting topical steroids and is no longer on systemic steroid therapy. Therefore, I do not see this as a significant risk to the integrity of the future anastomosis. After making a number of hand drawings to illustrate the intraoperative plans and Mrs. Ghanshyam cope confirm that they are ready to schedule an operation today. Plan: Orozco's reversal at first mutually agreeable date via ERS pathway with mechanical bowel preparation. Plan for postoperative admission to await return of bowel function. I have examined the patient and the H&P has been reviewed. There are no clinical changes since date of exam. He confirms that he completed his prep successfully and his output is obviously clear in his colostomy appliance. Procedure and post procedure expectations were reviewed with both patient and his family is present (this includes his spouse and his son). All questions were answered to their satisfaction. Will now proceed for laparoscopic assisted colostomy reversal with ERAS.
[2023-07-01] MEDS: Cefotetan 2 GM in 0.9% NS 100 ML IV (10:30)
--- NOTE | 2023-07-01 10:30 | COL_PTH ---
PATHOLOGY RESULTS PATIENT: ALEIDA HOWARD LOC: MS3 U#:[id number] AGE/SX: 72/M [place] [facility] [place]01/[address]: Dr. Kvng Lara MD : 1950 BED: 1 DIS: 07/04/2023 SPEC #: [id number] RECD: 07/02/23 09:01 STATUS: JUDY PHILLIPS #: [id number] FLACO: 07/01/23 10:[address]: Kvng Lara DEPT: SURGICAL PATHOLOGY RECD BY: Susan Small ENTERED: 07/02/23 09:02 SP TYPE: COLON OTHR DR: Dr. Terri Bacon DO Tissues: Colon, NOS Colon, NOS Colon Donuts Colon Donuts Procedures: Surgery Specimen Level III Surgery Specimen Level V HEADER OPERATION: ERAS, laparoscopic assisted colostomy reversal PRE-OP DIAGNOSIS: Colostomy in place TISSUE SUBMITTED: A - Distal sigmoid colon, B - Proximal sigmoid colon, C - Proximal sigmoid donut, D - Distal sigmoid donut MICROSCOPIC DIAGNOSIS A. Distal sigmoid colon, colectomy: Diverticulosis and diverticulitis. Pericolonic lymph node with reactive changes. B. Proximal sigmoid colon: A small segment of colon with reactive changes. A segment of colon with skin, consistent with colostomy stoma with reactive changes. C. Proximal sigmoid donut: Colonic donut, no pathologic diagnosis. D. Distal sigmoid donut: Colonic donut with mucosal congestion and hemorrhage. JAZIEL:layne 07/06/2023 MICROSCOPIC DESCRIPTION Slides are reviewed. GROSS DESCRIPTION A - Received in fixative is one container labeled with the patient's name and designated distal sigmoid colon. The specimen consists of a segment pericolonic adipose tissue measuring 7.0 cm in length. Both resection margins are stapled. The lumen contains a small amount of mucoid material. No mucosal lesion is identified. Sections reveal multiple diverticula. A few of the diverticula are filled with fecal material. More sections will be submitted after fixation. / SJ:layne 07/02/2023 Sections of pericolonic adipose tissue reveal two possible lymph nodes. Cherry Picker Operator sections are submitted in five cassettes as follows: 1 - resection margin, 2-4 - diverticula, 5 - pericolonic adipose tissue with possible lymph nodes. / SJ:layne 07/03/2023 B - Received in fixative is one container labeled with the patient's name and designated proximal sigmoid colon. The specimen consists of two pieces. One piece consists of a small segment of colon with one edge showing a piece of skin measuring 2.0 cm in length. Attached adipose tissue is also noted. No skin lesion is identified. The second piece consists of a small segment of colon with attached pericolonic adipose tissue measuring 3.5 cm in length. No mucosal lesion is identified. Sections will be submitted after fixation. / SJ:layne 07/02/2023 Multiple sutures are noted in both pieces of tissue with skin. No mucosal lesion is identified. Cherry Picker Operator sections are submitted in four cassettes as follows: 1 & 2 - piece of tissue with skin, 3 & 4 - colonic segment of colonic tissue. / :layne 07/03/2023 C - Received in fixative is one container labeled with the patient's name and designated proximal sigmoid donut. The specimen consists of a donut-shaped piece of colonic tissue measuring 2.0 x 1.5 x 0.7 cm. Multiple sutures are noted. Cherry Picker Operator sections are submitted in one cassette. / :layne 07/02/2023 D - Received in fixative is one container labeled with the patient's name and designated distal sigmoid donut. The specimen consists of a donut-shaped piece of colonic tissue measuring 1.5 x 1.0 x 1.0 cm. The specimen is submitted and submitted entirely in one cassette. / :layne 07/02/2023 TC:5 CPT: 35422 x2, 17849 x2
[2023-07-01] MEDS: Lubricating Jelly 60 GM Tube 30 GM (12:00)
[2023-07-01] MEDS: BUPIVACAINE LIPOSOME/PF 20 ML VIAL OPERA.SITE (15:15)
[2023-07-01] MEDS: Bupivacaine Mpf 0.5% 30 ML VIAL (15:15)
[2023-07-01] MEDS: 0.9% Normal Saline (Pres. free 10 ML Vial (15:15)
--- NOTE | 2023-07-01 16:02 | OP.PCM_ITS ---
Report of Operation Date of Procedure: 07/01/23 Pre-Operative Diagnosis: 1. History of diverticulitis with perforation requiri ng emergent segmental colectomy with end colostomy Post-Operative Diagnosis: 1. History of diverticulitis with perforation requiring emergent segmental colectomy with end colostomy 2. Indirect inguinal hernia (right) Surgery/Procedure Performed:: 1. Laparoscopic assisted colostomy reversal with completion sigmoid colectomy and creation of stapled end to end colorectal anastomosis 2. Transversus abdominis plane block Surgeon: Kvng Lara tape deck installer: Monty Lobo tape deck installer: Azul Ray Type of Anesthesia: General/Supplemental Anesthesiologist: Jaciel Gil Specimen's removed: 1. Distal sigmoid colon 2. Proximal sigmoid colon 3. Distal sigmoid colon donut 4. Proximal sigmoid colon donuts Estimated Blood Loss (mL): 50 Description of Procedure: After appropriate identification in the preoperative holding area patient was brought to the operating room where he was positioned supine on the operating table. There, preoperative antibiotics were completed. He then underwent induction with general endotracheal anesthetic. A Olguin catheter was inserted with sterile technique for accurate ins and outs monitoring. Patient's colostomy was closed with a running 0 Vicryl stitch. Patient's rectum was then irrigated with a dilute Betadine solution. The abdomen was prepped and draped in usual sterile fashion. Formal timeout confirmed patient and the procedure. Procedure was begun by circumscribing patient's colostomy sharply and tediously dissecting directly against the colon down to its attachments with the fascia. There were an exceptionally great number of adhesions and this process took nearly an hour. Ultimately the fascia was cleared of all of attachments circumferentially and a small wound protector was placed through the opening in the peritoneum. Within this small wound protector, we placed a balloon 12 mm King trocar and used a Dacron tape to snug the wound protector around the trocar. Pneumoperitoneum was established to 15 mmHg. Then the laparoscope was introduced and we identified numerous adhesions of omentum as well as small bowel to the anterior abdominal wall. Under direct visualization 5 mm trocars were introduced in the right lower quadrant, suprapubic, and left upper quadrant positions. Adhesions were cleared prior to placement of the trocar using a combination of blunt dissection and energy from the laparoscopic Enseal device?taking great care to be sure we were well away from any bowel. By the conclusion of the case patient's right lower quadrant 5 mm port site was upsized to a 12 mm port site, again, under laparoscopic visualization. Then in Trendelenburg positioning, the patient's colon was mobilized lateral to medial by incising the white line of Toldt and developing the avascular plane between the posterior aspect of the patient's descending colon and Gerota's fascia deeply. This was carried all the way to the splenic flexure. The sigmoid colon was found to be moderately densely adherent to the pelvic brim and great care was taken to feather out the adhesions and identify the left ureter crossing the iliac vessels. In the right lower quadrant I found several loops of small bowel adherent to the patient's rectosigmoid colon and these were carefully divided with sharp dissection given the proximity to the small bowel. We then placed a rigid proctoscope per rectum and tried to establish the reach of the rectum proximally. With this established the extent was marked using a Hem-o-bhavesh clip on a epiploic appendage. Carefully, the laparoscopic Enseal device was used to divide the mesocolon/mesorectum posteriorly down to the level of this clip directly adjacent to the posterior wall of the sigmoid colon and rectum. A distal transection point was elected and the rectum was divided with a firing of the laparoscopic 45 mm [place] stapler. With this firing the distal sigmoid colon was completely amputated and a grasper was placed across the distal end. A grasper was also placed across patient's proximal colon where the colostomy had been closed in running fashion. Then the ostomy opening was exploited by opening the wound protector and the free end of colon specimen was delivered through this opening and passed off the field for pathologic processing labeled distal sigmoid colon . The proximal sigmoid colon was delivered through the same opening and a proximal transection point was established where the colon was sharply divided using electrocautery. The lumen of the remaining descending colon was inspected and found to be quite narrow. Sizers were lubricated and introduced through this opening. The opening proved to be a tight fit to accommodate even the 25 mm sizer. With this observation we asked for the 29 mm EEA stapler anvil to be brought onto the field and-although the if it was tight- it was able to be introduced through the colotomy. A pursestring was made about this colotomy using a 2-0 Prolene suture and the anvil was placed fully within the colotomy. The pursestring suture was snugged down around the anvil post and a second pursestring suture was placed concentric to the first to ensure complete incorporation of the colonic mucosa. Unfortunately the first attempt at this procedure led to a seromuscular tear in the colon on the antimesenteric border and I elected to resect the distal 2 and half centimeters of colon back to a healthy end. The process of pursestring about the anvil was then repeated?this time successfully. With the anvil secured in place and a well- perfused distal end, the specimen was then returned to the peritoneal cavity and pneumoperitoneum reestablished. Using standard technique a end to end colorectal anastomosis was created with a firing of our EEA stapler. Complete colon and rectal donuts were verified once the stapler was withdrawn and submitted for pathologic processing the pelvis was then filled with irrigation and the descending colon-proximal to the new anastomosis-was occluded with pressure. A proctoscope was inserted transanally and the rectum was pressurized. There was no resulting bubbling. The proctoscope was then withdrawn and the irrigation suctioned free of the peritoneum. There did not appear to be any bleeding. A transversus abdominis plane block was made under laparoscopic guidance bilaterally using 80 mL of Exparel, bupivacaine, and saline. The patient was returned to a neutral position and pneumoperitoneum was evacuated. All operative personnel changed gown and gloves and closure was begun with reapproximation of the fascia of the prior stomal site. The anterior rectus sheath was closed in a running fashion using #1 PDS suture continuous with the posterior sheath. The 12 mm right lower quadrant port site was closed with a 2-0 Vicryl in a [id number] fashion. All port sites were irrigated with sterile saline. The skin of each port site was closed in a subcuticular fashion using 4-0 Monocryl. Steri-Strips and bandages were applied as dressings. Procedure was then complete and the patient's Olguin catheter was maintained. Anesthesia awaken the patient and he was transferred to PACU for ongoing recovery. Grafts/Implants Used: None Complications None Admit VTE Documentation VTE Mechan Device Prophylaxis: SCD's Procedures Digestive 40xxx-49xxx: 26254 Repair bowel opening
[2023-07-01] MEDS: 0.9% Normal Saline (1000mL) 1,000 ML 75 ML IV (18:00)
[2023-07-01] MEDS: Ketorolac 15 MG/ML Vial IV (18:53)
[2023-07-02] MEDS: Ketorolac 15 MG/ML Vial IV ×5 (01:05→23:57)
[2023-07-02 04:00] VITALS: BP 113/67; PULSE 81; RESP 15; TEMP 36.8; O2SAT 97
[2023-07-02 04:59] VITALS: RESP 15
[2023-07-02 06:31] LABS: Absolute Lymphocyte Count 1.78 X10^3/uL (0.83-4.51); Basophil# 0.06 X10^3/uL; Basophil% 0.5 % (0-1); Eosinophil# 0.13 X10^3/uL; Eosinophils% 1.2 % (0-5); Hematocrit 42.9 % (40-54); Hemoglobin 13.7 g/dL (13.0-16.5); Lymphocyte # 1.78 X10^3/ul (0.83-4.51); Lymphocyte % 15.8 % (19-41); Mean Corp Hgb Conc 31.9 g/dL (32-36); Mean Corpuscular Hgb 28.5 pg (27.0-32.0); Mean Corpuscular Volume 89.2 fL (80-94); Mean Platelet Vol. 9.7 fl (6.2-12.0); Monocyte# 1.27 X10^3/uL; Monocyte% 11.3 % (0-10); NRBC Flagged by Analyzer 0 % (0-5); Neutrophil # 7.99 X10^3/uL (2.7-7.7); Neutrophil % 70.9 % (47-70); Platelet Count 200 K/mm3 (150-450); RBC Distribution Width SD 45.9 fl (35.1-43.9); Red Blood Count 4.81 M/mm3 (4.6-6.2); White Blood Count 11.3 K/mm3 (4.4-11.0)
[2023-07-02 07:29] LABS: Anion Gap 7 (5-15); BUN 16 mg/dL (7-18); BUN/Creat Ratio 13.1 RATIO (10-20); Chloride 104 mmol/L (98-107); Creatinine, Serum 1.22 mg/dL (0.70-1.30); EST Glomerular Filtration Rate 62 mL/min (>60); Est Glom Filt Rate - Afr Amer 75 mL/min (>60); Estimated Creatinine Clearance 57.95 ml/min; Glucose 96 mg/dL (74-106); Magnesium 2.1 mg/dL (1.6-2.6); Sodium Level 138 mmol/L (136-145)
--- NOTE | 2023-07-02 07:37 | PN.SURG_ITS ---
Subjective Subjective Patient was seen and examined during AM rounds. He denied any significant pains and described his greatest discomfort as being some sleepers of his left eye. He states this is now better today. He denies abdominal discomfort. He denies any nausea or bloating in response to his diet. He is eager to walk. Objective Data Objective Data Vital Signs: Vital Signs Temp Pulse Resp BP Pulse Ox O2 Del Method O2 Flow Rate 98.3 F 81 15 113/67 97 Room Air 4 07/02/23 04:00 07/02/23 04:00 07/02/23 04:59 07/02/23 04:00 07/02/23 04:00 07/02/23 04:59 07/01/23 17:14 Oxygen Flow Rate (L/min) 4 Oxygen Delivery Method Room Air Weight: 188 lb Body Mass Index (BMI) 29.0 Intake & Output: Intake and Output for Last 24 Hours 06/30/23 07/01/23 07/02/23 23:59 23:59 23:59 Intake Total 4879.33 / 5179.33 450 / 450 Output Total 850 / 1650 1100 / 1100 Balance 4029.33 / 3529.33 -650 / -650 Lab / Micro Data 07/02/23 05:25 07/02/23 05:25 Labs: Laboratory Results - last 24 hr 07/01/23 08:57: POC Glucose 129 H 07/02/23 05:25: WBC 11.3 H, RBC 4.81, Hgb 13.7, Hct 42.9, MCV 89.2, MCH 28.5, MCHC 31.9 L, RDW Std Deviation 45.9 H, RDW Coeff of [place] 14.0, Plt Count 200, MPV 9.7, Immature Gran % (Auto) 0.300, Neut % (Auto) 70.9 H, Lymph % (Auto) 15.8 L, [place] % (Auto) 11.3 H, Eos % (Auto) 1.2, Baso % (Auto) 0.5, Absolute Neuts (auto) 8.0 H, Absolute Lymphs (auto) 1.78, Nucleated RBC % 0, Sodium 138, Potassium 4.0, Chloride 104, Carbon Dioxide 27.0, Anion Gap 7, BUN 16, Creatinine 1.22, Estim Creat Clear Calc 57.95, Est GFR (MDRD) Af Amer 75, Est GFR (MDRD) Non-Af 62, BUN/Creatinine Ratio 13.1, Glucose 96, Calcium 8.0 L, Phosphorus 3.0, Magnesium 2.1 Physical Exam Const oriented x3 and no apparent distress Resp normal respiratory effort GI GI Narrative: Operative dressings are intact and are clean and dry. Patient's colostomy site was examined and there is bloody drainage on patient's waking but no signs of ongoing drainage. Patient's abdomen is soft and minimally tender to palpation x 4 quadrants. Bladder / Kidney Exam: catheter in place urethral (Draining clear yellow urine) Assessment & Plan Assessment/Plan (1) Status post partial colectomy: PLAN: Patient is a 72-year-old male postoperative day 1 from laparoscopic colostomy reversal with colorectal anastomosis via a stapled end to end technique. Patient is doing well this morning with minimal pain complaints. He is tolerating a liquid diet without adverse effects. A Olguin catheter was left in place for accurate ins and outs monitoring but his creatinine is normal today and he has had adequate urine output. Plan will be to remove Olguin catheter and patient is encouraged to ambulate. If he shows further return of bowel function will plan to advance his diet. If hemoglobin is stable postoperatively we will plan to initiate Lovenox. Charges/Coding Visit Charges Inpatient E&M: 00777 Subs Hosp L2
[2023-07-02 09:30] VITALS: BP 124/74; PULSE 61; RESP 16; TEMP 36.6; O2SAT 93
[2023-07-02] MEDS: Tamsulosin HCl 0.4 MG Capsule 0.400000000000000022 MG PO (11:35)
[2023-07-02] MEDS: Enoxaparin 40 MG/0.4 ML Syringe SC (11:36)
[2023-07-02] MEDS: 0.9% Normal Saline (1000mL) 1,000 ML 75 ML IV ×2 (11:36→17:43)
[2023-07-02] MEDS: 0.9% Saline Lock 10 ML Syringe IV (11:40)
--- NOTE | 2023-07-02 12:00 | CASEMGMT ---
TESS HURTADO Assessment Face to Face with patient for initial transition planning/care coordination assessment. TESS HURTADO introduced self and role at [facility], pt voices understanding. Pt is A&Ox4 and is resting comfortably in bed and is calm. Pt at bedside. Care providers, pharmacy, and demographics verified. Admitting dx: Colostomy Reversal-ERAS PCP: Arleen Specialists: Rao (ENT), Kayli (Pulm), Phyllis (Rheum) Preferred Pharmacy: [facility] Insurance: [facility] A/B, [facility] Supplement Prescription Benefit: Yes (states this is through [employer]) LNOK: Chantelle Moe (W) Living Arrangements: Pt lives with his in a 2 story home with a BM with handrails and 1 step to enter the home with no issues using the steps. ADLs/IADLs: Ind Transportation: Pt drives. Pt drives and will drive the pt home from [facility]. DME: Pt states that he has a cane and walker at home but does not use. Walk-in shower. Pt denies PAP machines at night. Pt denies the use or needs of all other DME at this time. HHC/SNF: Denies SNF history. Pt states history of HHC in 2022 (SN) regarding care for his colostomy. Pt?s goal: Home no needs. Plan: Pt states that he feels safe and comfortable being discharged home once medically ready. Pt denies the need for OP therapy and HHC. Pt denies further needs at this time. CM to follow for safe DC home. Rebeca Liu RN, CM
[2023-07-02 14:00] VITALS: BP 121/77; PULSE 82; RESP 14; TEMP 36.8; O2SAT 99
[2023-07-02 21:39] VITALS: BP 119/74; PULSE 86; RESP 16; TEMP 37.1; O2SAT 98
[2023-07-03 03:50] VITALS: BP 128/73; PULSE 90; RESP 16; TEMP 37.2; O2SAT 98
[2023-07-03] MEDS: Ketorolac 15 MG/ML Vial IV ×4 (05:57→23:51)
[2023-07-03] MEDS: 0.9% Normal Saline (1000mL) 1,000 ML 75 ML IV (06:00)
[2023-07-03 06:23] LABS: Absolute Lymphocyte Count 1.06 X10^3/uL (0.83-4.51); Absolute Neutrophil Count 8.2 X10^3/uL (2.0-7.7); Basophil# 0.04 X10^3/uL; Basophil% 0.4 % (0-1); Eosinophils% 2.8 % (0-5); Hematocrit 36.5 % (40-54); Hemoglobin 11.8 g/dL (13.0-16.5); Lymphocyte # 1.06 X10^3/ul (0.83-4.51); Lymphocyte % 9.7 % (19-41); Mean Corp Hgb Conc 32.3 g/dL (32-36); Mean Corpuscular Hgb 28.9 pg (27.0-32.0); Mean Corpuscular Volume 89.5 fL (80-94); Mean Platelet Vol. 9.5 fl (6.2-12.0); NRBC Flagged by Analyzer 0 % (0-5); Neutrophil # 8.24 X10^3/uL (2.7-7.7); Neutrophil % 75.7 % (47-70); Platelet Count 170 K/mm3 (150-450); RBC Distribution Width CV 13.8 % (11.6-14.6); Red Blood Count 4.08 M/mm3 (4.6-6.2); White Blood Count 10.9 K/mm3 (4.4-11.0)
[2023-07-03 06:45] LABS: Anion Gap 6 (5-15); BUN 13 mg/dL (7-18); BUN/Creat Ratio 10.8 RATIO (10-20); Calcium,Total 8.1 mg/dL (8.5-10.1); Chloride 106 mmol/L (98-107); EST Glomerular Filtration Rate 63 mL/min (>60); Est Glom Filt Rate - Afr Amer 77 mL/min (>60); Estimated Creatinine Clearance 58.91 ml/min; Glucose 128 mg/dL (74-106); Potassium 3.9 mmol/L (3.5-5.1); Sodium Level 138 mmol/L (136-145)
--- NOTE | 2023-07-03 07:22 | PN.SURG_ITS ---
Subjective Subjective Patient seen and examined during AM rounds. He is found resting in bed. He states that he was awoken early this morning to itching of his back. However, this resolved after getting up to the bathroom and having a small liquid bowel movement. He denies any complaints this morning. A Olguin catheter was replaced yesterday after patient had retention and there was return of 700 mL of clear yellow urine. Objective Data Objective Data Vital Signs: Vital Signs Temp Pulse Resp BP Pulse Ox O2 Del Method O2 Flow Rate 98.9 F 90 16 128/73 H 98 Room Air 4 07/03/23 03:50 07/03/23 03:50 07/03/23 03:50 07/03/23 03:50 07/03/23 03:50 07/03/23 03:50 07/01/23 17:14 Oxygen Flow Rate (L/min) 4 Oxygen Delivery Method Room Air Weight: 188 lb Body Mass Index (BMI) 29.0 Intake & Output: Intake and Output for Last 24 Hours 07/01/23 07/02/23 07/03/23 23:59 23:59 23:59 Intake Total 4879.33 / 5179.33 2738.75 / 3238.75 2121.25 / 2121.25 Output Total 850 / 1650 2200 / 2675 1425 / 1425 Balance 4029.33 / 3529.33 538.75 / 563.75 696.25 / 696.25 Lab / Micro Data 07/03/23 05:40 07/03/23 05:40 Labs: Laboratory Results - last 24 hr 07/02/23 05:25: Sodium 138, Potassium 4.0, Chloride 104, Carbon Dioxide 27.0, Anion Gap 7, BUN 16, Creatinine 1.22, Estim Creat Clear Calc 57.95, Est GFR (MDRD) Af Amer 75, Est GFR (MDRD) Non-Af 62, BUN/Creatinine Ratio 13.1, Glucose 96, Calcium 8.0 L, Phosphorus 3.0, Magnesium 2.1 07/03/23 05:40: WBC 10.9, RBC 4.08 L, Hgb 11.8 L, Hct 36.5 L, MCV 89.5, MCH 28.9, MCHC 32.3, RDW Std Deviation 45.0 H, RDW Coeff of [place] 13.8, Plt Count 170, MPV 9.5, Immature Gran % (Auto) 0.400, Neut % (Auto) 75.7 H, Lymph % (Auto) 9.7 L, [place] % (Auto) 11.0 H, Eos % (Auto) 2.8, Baso % (Auto) 0.4, Absolute Neuts (auto) 8.2 H, Absolute Lymphs (auto) 1.06, Nucleated RBC % 0, Sodium 138, Potassium 3.9, Chloride 106, Carbon Dioxide 26.0, Anion Gap 6, BUN 13, Creatinine 1.20, Estim Creat Clear Calc 58.91, Est GFR (MDRD) Af Amer 77, Est GFR (MDRD) Non-Af 63, BUN/Creatinine Ratio 10.8, Glucose 128 H, Calcium 8.1 L Physical Exam Const oriented x3 and no apparent distress Resp normal respiratory effort GI GI Narrative: Nondistended, soft, operative dressings are initially intact with scant drainage (these were removed and Steri-Strips were left in place). Patient's left lower quadrant colostomy site is well-appearing with some serosanguineous drainage to the bandage. There wicking that was pulled. Patient's right lower quadrant area of firmness and likely subcutaneous hematoma is stable in size today. It remains stably tender as well. Bladder / Kidney Exam: catheter in place urethral (Draining clear yellow urine) Assessment & Plan Assessment/Plan (1) Status post partial colectomy: PLAN: Patient is a 72-year-old male postoperative day 2 from laparoscopic colostomy reversal with colorectal anastomosis via a stapled end to end sunny hn[place]. Patient continues with minimal pain complaints. He tolerated a full liquid diet yesterday and is hungry for more today. Unfortunately he did not tolerate Olguin catheter removal and experienced retention yesterday occasioning Olguin replacement. Flomax was started yesterday prior to catheter removal. Unfortunately, patient also exhibited evidence of a subcutaneous hematoma at the site of a Lovenox injection as it overlapped with a right lower quadrant port site. This remains superficially tender to palpation but there is no signs of infection or ongoing growth. Patient has kept ice over this site since its development yesterday. Lovenox has been held as well. There is been a slight downtrend of patient's hemoglobin. Plan for today: ? Advance to a soft low residue diet ? Saline lock IV ? Continue monitoring of patient's right lower quadrant wound Disposition: Continue inpatient care but possible discharge anticipated for tomorrow (anticipate Olguin catheter removal early in the a.m. and follow-up for spontaneous void). Dr. Juarez and will be covering this weekend. Charges/Coding Visit Charges Inpatient E&M: 61302 Subs Hosp L2
[2023-07-03] MEDS: Tamsulosin HCl 0.4 MG Capsule 0.400000000000000022 MG PO (08:02)
[2023-07-03 08:20] VITALS: BP 128/84; PULSE 71; RESP 15; TEMP 36.7; O2SAT 99
[2023-07-03] MEDS: 0.9% Saline Lock 10 ML Syringe IV ×3 (12:44→23:53)
[2023-07-03] MEDS: DiphenhydrAMINE 25 MG Capsule PO ×2 (13:32→20:07)
[2023-07-03 14:00] VITALS: BP 108/69; PULSE 80; RESP 15; TEMP 36.7; O2SAT 98
[2023-07-03] MEDS: Ensure Plus High Protein 120 ML LIQUID PO ×2 (17:46→20:09)
--- NOTE | 2023-07-03 17:57 | PCM.DC ---
Discharge Instructions Diet Discharge Diet: Soft diet (X 2 weeks) Activity Discharge Activity: May Not Drive (No driving while using narcotic pain medication) Lifting Restrictions: No lifting greater than 15 pounds for 4 weeks after surgery Dressing / Incision Call your doctor if your incision/area has: Continuous Slow Oozing, Sudden Increased Bleeding, Increased Pain/ Swelling, Increased Redness, Foul Smelling Discharge and Swelling at the incision site Call your doctor if you observe: Fever of 101 or Higher, Inability to urinate, Inability to have a bowel movement and - (Bloody bowel movements) Cleanse incision/area with: Soap & Water Follow Up Care Please Follow Up With: Kvng Lara MD When: 10 to 14 days postop Test Results: Test results from this visit will be discussed in further detail at your follow-up appointment, if applicable. Discharge Plan Admission Admit Date/Time: 07/01/23 08:20 Primary Reason for Your Visit: Colostomy reversal Attending Provider: Kvng Lara Primary Care Provider: Terri Bacon Discharge Orders/Prescriptions Prescriptions: New tamsulosin 0.4 mg Capsule 0.4 mg PO DAILY Qty: 30 0RF tramadol 50 mg tablet 50 mg PO Q6H PRN (Reason: pain) Qty: 10 0RF Continued losartan 50 mg tablet 25 mg PO DAILY Hold Instructions: Resume on 02/28/23. montelukast 10 mg tablet 10 mg PO DAILY fluticasone propionate 50 mcg/actuation [place],Suspension 2 spray INTRANASAL DAILY cholecalciferol (vitamin D3) [Vitamin D3] 25 mcg (1,000 unit) Tablet 125 mcg PO DAILY amecoreu-lhbn-exgma-oreg-capry 100 mg-150 mg- 50 mg-150 mg Capsule 1 cap PO DAILY azelastine 137 mcg (0.1 %) aerosol,spray 1 spray INTRANASAL DAILY albuterol sulfate [Ventolin HFA] 90 mcg/actuation HFA aerosol inhaler 1 puff INHALATION Q4H PRN (Reason: shortness of breath or wheezing) Patient Comments: Inhale 2 puff using inhaler every six hours as needed budesonide 1 mg/2 mL suspension for nebulization 1 mg irrigation DAILY Patient Comments: INHALE 1 VIAL USING NEBULIZER TWICE DAILY budesonide-formoterol [Symbicort] 160-4.5 mcg/actuation HFA aerosol inhaler 2 inh INHALATION BID Patient Comments: INHALE 2 PUFFS BY MOUTH TWICE DAILY. RINSE MOUTH AFTER USE clindamycin HCl 150 mg capsule 150 mg PO DIRECTED Qty: 3 0RF Rx Instructions: Take 1 tab PO at 1p,3p, and 11p the day prior to surgery neomycin 500 mg tablet 500 mg PO DIRECTED Qty: 6 0RF Rx Instructions: Take 2 tabs PO at 1p, 3p, and llp the day prior to surgery Referrals / Follow Up: Terri Bacon DO [Primary Care Provider] - Disposition Disposition (needs filled in before D/C Order can be placed): Home, Self Care
[2023-07-03 20:45] VITALS: BP 139/77; PULSE 80; RESP 16; TEMP 37.1; O2SAT 97
[2023-07-04] MEDS: DiphenhydrAMINE 25 MG Capsule PO (02:24)
[2023-07-04 02:33] VITALS: BP 128/75; PULSE 83; RESP 16; TEMP 36.6; O2SAT 98
[2023-07-04] MEDS: 0.9% Saline Lock 10 ML Syringe IV (06:33)
[2023-07-04] MEDS: Ketorolac 15 MG/ML Vial IV (06:33)
--- NOTE | 2023-07-04 07:43 | PCM.PN.SRG ---
Subjective Subjective Patient tolerating diet and having bowel function. Patient's Olguin was removed this morning for voiding trial. Patient states his right lower quadrant hematoma has decreased in size. Objective Data Objective Data Vital Signs: Vital Signs Temp Pulse Resp BP Pulse Ox O2 Del Method O2 Flow Rate 97.9 F 83 16 128/75 H 98 Room Air 4 07/04/23 02:33 07/04/23 02:33 07/04/23 02:33 07/04/23 02:33 07/04/23 02:33 07/04/23 02:33 07/01/23 17:14 Oxygen Flow Rate (L/min) 4 Oxygen Delivery Method Room Air Weight: 188 lb Body Mass Index (BMI) 29.0 Intake & Output: Intake and Output for Last 24 Hours 07/02/23 07/03/23 07/04/23 23:59 23:59 23:59 Intake Total 2738.75 / 3238.75 3671.25 / 3671.25 1200 / 1200 Output Total 2200 / 2675 2900 / 2900 1350 / 1350 Balance 538.75 / 563.75 771.25 / 771.25 -150 / -150 Lab / Micro Data 07/03/23 05:40 07/03/23 05:40 Physical Exam Resp normal respiratory effort Cardio regular rate GI GI Narrative: Abdomen: Soft, nondistended, tender near incision's dressed clean dry and intact, no peritoneal signs, left lower quadrant hematoma with some ecchymosis Assessment & Plan Assessment/Plan (1) Status post partial colectomy: PLAN: Patient is a 72-year-old male postoperative day 3 from laparoscopic colostomy reversal with colorectal anastomosis via a stapled end to end technique. ? soft low residue diet ? Olguin removed this morning if patient is able to void well we will plan to DC home. If patient is unable to void or has high residuals patient may need Olguin placed and go home with the Olguin with a follow-up with urology. Farrah Juarez M.D. Pager: [phone] [facility] [address] [place] [address], [address] [place] [address] Office: [phone]
--- NOTE | 2023-07-04 07:46 | DS.PCM_ITS ---
Providers Date of Admission: 07/01/23 Primary Care Physician: Dr. Terri Bacon DO Reason For Visit: Colostomy reversal-ERAS Diagnosis Discharge Diagnosis (1) Status post partial colectomy: Status: Acute Code(s): Z90.49 - Acquired absence of other specified parts of digestive tract Plan: Patient is a 72-year-old male postoperative day 3 from laparoscopic colostomy reversal with colorectal anastomosis via a stapled end to end technique. ? soft low residue diet ? Olguin removed this morning if patient is able to void well we will plan to DC home. If patient is unable to void or has high residuals patient may need Olguin placed and go home with the Olguin with a follow-up with urology. Farrah Juarez M.D. Pager: [phone] [facility] [address] [place] [address], [address] [place] [id number] Office: [phone] Medications at Discharge Home Medications losartan 50 mg tablet 25 mg PO DAILY BP 12/02/20 montelukast 10 mg tablet 10 mg PO DAILY ASTHMA 12/02/20 cholecalciferol (vitamin D3) 25 mcg (1,000 unit) tablet (Vitamin D3) 125 mcg PO DAILY ASTHMA 04/22/21 fluticasone propionate 50 mcg/actuation nasal spray,suspension 2 spray intranasal DAILY NASAL 04/22/21 turmeric 100 mg-chadd 150 mg-olive 50 mg-oreg 150 mg-capryl capsule 1 cap PO DAILY SUPPLEMENT 04/22/21 albuterol sulfate 90 mcg/actuation aerosol inhaler (Ventolin HFA) 1 puff inhalation Q4H PRN shortness of breath or wheezing 02/17/23 azelastine 137 mcg (0.1 %) nasal spray aerosol 1 spray intranasal DAILY NASAL CONGESTION 02/17/23 budesonide 1 mg/2 mL suspension for nebulization 1 mg irrigation DAILY nasal polps 02/26/23 budesonide-formoterol HFA 160 mcg-4.5 mcg/actuation aerosol inhaler (Symbicort) 2 inh inhalation BID ASTHMA 05/04/23 clindamycin HCl 150 mg capsule 150 mg PO DIRECTED #3 caps 06/29/23 neomycin 500 mg tablet 500 mg PO DIRECTED #6 tabs 06/29/23 tamsulosin 0.4 mg capsule 0.4 mg PO DAILY #30 caps 07/03/23 tramadol 50 mg tablet 50 mg PO Q6H PRN pain #10 tabs 07/03/23 Hospital Course Summary of Care Provided Minutes Spent on Discharge: 15 Hospital Course: Patient is a 72-year-old male admitted status post laparoscopic colostomy reversal with colorectal anastomosis via a stapled end to end technique. Once patient was able to have bowel function diet was advanced. Patient did get a small subcutaneous hematoma due to Lovenox shot left lower quadrant this has been decreasing in size. Patient had a some urinary retention and needed the Olguin replaced. Prior to discharge patient will have the Olguin removed and if he is able to void will be able to go home. If patient is unable to void Olguin will be replaced and he will be DC'd with a Olguin. Weight / BMI Weight Weight: 188 lb Body Mass Index (BMI) 29.0 ABG / Lab / Microbiology Data 07/03/23 05:40 07/03/23 05:40 D/C Instructions Discharge Diet: Soft diet (X 2 weeks) Call your doctor if your incision/area has: Continuous Slow Oozing, Sudden Increased Bleeding, Increased Pain/ Swelling, Increased Redness, Foul Smelling Discharge and Swelling at the incision site Call your doctor if you observe: Fever of 101 or Higher, Inability to urinate, Inability to have a bowel movement and - (Bloody bowel movements) Cleanse incision/area with: Soap & Water Please Follow Up With: Kvng Lara MD When: 10 to 14 days postop Meaningful Use Info Meaningful Use Diagnoses (Choose all that apply): None applicable Discharge Plan Admission Admit Date/Time: 07/01/23 08:20 Primary Reason for Your Visit: Colostomy reversal Attending Provider: Kvng Lara Primary Care Provider: Terri Bacon Discharge Orders/Prescriptions Prescriptions: New tamsulosin 0.4 mg Capsule 0.4 mg PO DAILY Qty: 30 0RF tramadol 50 mg tablet 50 mg PO Q6H PRN (Reason: pain) Qty: 10 0RF Continued losartan 50 mg tablet 25 mg PO DAILY Hold Instructions: Resume on 02/28/23. montelukast 10 mg tablet 10 mg PO DAILY fluticasone propionate 50 mcg/actuation [place],Suspension 2 spray INTRANASAL DAILY cholecalciferol (vitamin D3) [Vitamin D3] 25 mcg (1,000 unit) Tablet 125 mcg PO DAILY hxbbtnfj-fsnh-ahipn-oreg-capry 100 mg-150 mg- 50 mg-150 mg Capsule 1 cap PO DAILY azelastine 137 mcg (0.1 %) aerosol,spray 1 spray INTRANASAL DAILY albuterol sulfate [Ventolin HFA] 90 mcg/actuation HFA aerosol inhaler 1 puff INHALATION Q4H PRN (Reason: shortness of breath or wheezing) Patient Comments: Inhale 2 puff using inhaler every six hours as needed budesonide 1 mg/2 mL suspension for nebulization 1 mg irrigation DAILY Patient Comments: INHALE 1 VIAL USING NEBULIZER TWICE DAILY budesonide-formoterol [Symbicort] 160-4.5 mcg/actuation HFA aerosol inhaler 2 inh INHALATION BID Patient Comments: INHALE 2 PUFFS BY MOUTH TWICE DAILY. RINSE MOUTH AFTER USE clindamycin HCl 150 mg capsule 150 mg PO DIRECTED Qty: 3 0RF Rx Instructions: Take 1 tab PO at 1p,3p, and 11p the day prior to surgery neomycin 500 mg tablet 500 mg PO DIRECTED Qty: 6 0RF Rx Instructions: Take 2 tabs PO at 1p, 3p, and llp the day prior to surgery Referrals / Follow Up: Terri Bacon DO [Primary Care Provider] - Disposition Disposition (needs filled in before D/C Order can be placed): Home, Self Care
[2023-07-04 09:17] VITALS: BP 142/87; PULSE 76; RESP 18; TEMP 36.6; O2SAT 99
[2023-07-04] MEDS: Tamsulosin HCl 0.4 MG Capsule 0.400000000000000022 MG PO (09:26)
[2023-07-04] MEDS: Ensure Plus High Protein 120 ML LIQUID PO (09:29)
[2023-07-04 11:12] VITALS: BP 120/79; PULSE 71; RESP 16; TEMP 36.6; O2SAT 97
== END 2023-07-04 11:12 | disposition home or self-care (01) | DRG 330 ==
LOC: ACINP 08:24 → MS3 17:08
PROVIDERS: Anesthesiology; Physician Assistant; Admitting Provider Surgery; PCP Internal Medicine; Referring Provider Surgery; Visit Provider Surgery
PROC: 0D1E4Z4 Bypass Large Intestine to Cutaneous, Percutaneous Endoscopic Approach (ICD-10-PCS; CPT 44188; principal; 2023-07-01 10:10)
DX: Z43.3 Encounter for attention to colostomy (principal); L76.32 Postprocedural hematoma of skin and subcutaneous tissue following other procedure; E11.9 Type 2 diabetes mellitus without complications; I10 Essential (primary) hypertension; K40.90 Unilateral inguinal hernia, without obstruction or gangrene, not specified as recurrent; Z79.899 Other long term (current) drug therapy; Z90.49 Acquired absence of other specified parts of digestive tract; R33.9 Retention of urine, unspecified; T45.515A Adverse effect of anticoagulants, initial encounter; Y84.8 Other medical procedures as the cause of abnormal reaction of the patient, or of later complication, without mention of misadventure at the time of the procedure; Y92.239 Unspecified place in hospital as the place of occurrence of the external cause
CPT/HCPCS: 36415; 80048; 80076; 82962; 83735; 84100; 85025; 85027; 85610; 85730; 88304; 88307; 94668; 99252; J7030; J7120; A4216; C1760; G0463; J2405; J3475; J3490

== ENCOUNTER 2024-06-12 08:14 | Emergency (ER) | payer MEDICARE, OTHER, SELFPAY ==
[2024-06-12] VITALS (7 sets, daily range): BP systolic 105–154; BP diastolic 67–94; PULSE 78–100; RESP 15–24; TEMP 36.4–37.2; O2SAT 93–98; BMI 30.8
--- NOTE | 2024-06-12 08:53 | RAD_ITS ---
PROCEDURE: CHEST 1 VIEW (PORTABLE) REASON FOR EXAM: 73-year-old male, cough, shortness of breath x1 week. TECHNIQUE: Frontal view of the chest. COMPARISON: Chest radiograph 02/16/2023. FINDINGS: The heart size is normal. The lungs are clear. No focal consolidation, pleural effusion or pneumothorax. Degenerative changes are identified within the thoracic spine. RAD/Chest 1 View (Portable) IMPRESSION: NEGATIVE CHEST. Reading Location: [id number]
[2024-06-12 09:02] LABS: Absolute Lymphocyte Count 1.71 X10^3/uL (0.83-4.51); Absolute Neutrophil Count 5.1 X10^3/uL (2.0-7.7); Basophil# 0.09 X10^3/uL; Eosinophil# 1.36 X10^3/uL; Eosinophils% 15.2 % (0-5); Hematocrit 46.2 % (40-54); Hemoglobin 15.5 g/dL (13.0-16.5); Lymphocyte # 1.71 X10^3/ul (0.83-4.51); Lymphocyte % 19.2 % (19-41); Mean Corp Hgb Conc 33.5 g/dL (32-36); Mean Corpuscular Hgb 29.2 pg (27.0-32.0); Mean Platelet Vol. 9.5 fl (6.2-12.0); Monocyte# 0.67 X10^3/uL; Monocyte% 7.5 % (0-10); NRBC Flagged by Analyzer 0 % (0-5); Neutrophil # 5.06 X10^3/uL (2.7-7.7); Neutrophil % 56.8 % (47-70); Platelet Count 235 K/mm3 (150-450); RBC Distribution Width CV 13.3 % (11.6-14.6); RBC Distribution Width SD 42.4 fl (35.1-43.9); Red Blood Count 5.31 M/mm3 (4.6-6.2); White Blood Count 8.9 K/mm3 (4.4-11.0)
--- NOTE | 2024-06-12 09:21 | EDS_ITS ---
HPI History of Present Illness Chief Complaint: Shortness of Breath Informant: patient and spouse/S.O. Narrative Narrative: 73-year-old male with a history of asthma presenting to the emergency room with cough and dyspnea. Patient states for the past 2 weeks he has had a cough. 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 He states that on went saw his primary care doctor who placed him on 5 days of cefdinir as well as an albuterol MDI. He states that he is continued to have cough and wheezing. No fevers. He notes nasal congestion in the setting of a history of polyps (follows with ENT). He does not have any recent fevers. He states it is difficult for him to use his inhaler. He does not have a spacer. He does have access to a nebulizer but his son currently has it but he does not have the medicine or the tubing. [facility] Medical History Loss of hearing Wears glasses Alcohol use Diabetes Prostate disease Easy bruising Restless legs Back pain Syncope History of ulceration Colostomy care History of open sigmoidectomy Diverticulitis of colon with perforation Abdominal pain Arthritis Non-smoker Asthma History of stress test Hypertension Carpal tunnel syndrome, bilateral PMR (polymyalgia rheumatica) Home Medications ?Medication ?Instructions ?Recorded ?Last Taken ?Type montelukast 10 mg tablet 10 mg PO DAILY ASTHMA 05/06/23 History cholecalciferol (vitamin D3) 25 125 mcg PO DAILY ASTHM A 04/22/21 02/26/23 History mcg (1,000 unit) tablet (Vitamin D3) fluticasone propionate 50 2 spray intranasal DAILY LIV AL 04/22/21 05/06/23 History mcg/actuation nasal spray,suspension turmeric 100 mg-chadd 150 1 cap PO DAILY SUPPLEMENT 1 06/23/20 Unknown History mg-olive 50 mg-oreg 150 mg-capryl capsule albuterol sulfate 90 mcg/actuation 1 puff inhalation Q 4H PRN 02/17/23 Unknown History aerosol inhaler (Ventolin HFA) shortness of breath or wheezing azelastine 137 mcg (0.1 %) nasal 1 spray intranasal DA WALLY NASAL 02/17/23 05/06/23 History spray CONGESTION budesonide 1 mg/2 mL suspension 1 mg irrigation DAILY nasal polps 02/26/23 05/06/23 History for nebulization budesonide-formoterol HFA 160 2 inh inhalation BID AST HMA 05/04/23 Unknown History mcg-4.5 mcg/actuation aerosol inhaler (Symbicort)
--- NOTE | 2024-06-12 09:21 | ED.VIS.DYS ---
HPI History of Present Illness Chief Complaint: Shortness of Breath Informant: patient and spouse/S.O. Narrative Narrative: 73-year-old male with a history of asthma presenting to the emergency room with cough and dyspnea. Patient states for the past 2 weeks he has had a cough. 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 He states that on went saw his primary care doctor who placed him on 5 days of cefdinir as well as an albuterol MDI. He states that he is continued to have cough and wheezing. No fevers. He notes nasal congestion in the setting of a history of polyps (follows with ENT). He does not have any recent fevers. He states it is difficult for him to use his inhaler. He does not have a spacer. He does have access to a nebulizer but his son currently has it but he does not have the medicine or the tubing. [facility] Medical History Loss of hearing Wears glasses Alcohol use Diabetes Prostate disease Easy bruising Restless legs Back pain Syncope History of ulceration Colostomy care History of open sigmoidectomy Diverticulitis of colon with perforation Abdominal pain Arthritis Non-smoker Asthma History of stress test Hypertension Carpal tunnel syndrome, bilateral PMR (polymyalgia rheumatica) Home Medications ?Medication ?Instructions ?Recorded ?Last Taken ?Type montelukast 10 mg tablet 10 mg PO DAILY ASTHMA 12/02/20 05/06/23 History cholecalciferol (vitamin D3) 25 125 mcg PO DAILY ASTHMA 04/22/21 02/26/23 History mcg (1,000 unit) tablet (Vitamin D3) fluticasone propionate 50 2 spray intranasal DAILY NASAL 04/22/21 05/06/23 History mcg/actuation nasal spray,suspension turmeric 100 mg-chadd 150 1 cap PO DAILY SUPPLEMENT 04/22/21 Unknown History mg-olive 50 mg-oreg 150 mg-capryl capsule albuterol sulfate 90 mcg/actuation 1 puff inhalation Q4H PRN 02/17/23 Unknown History aerosol inhaler (Ventolin HFA) shortness of breath or wheezing azelastine 137 mcg (0.1 %) nasal 1 spray intranasal DAILY NASAL 02/17/23 05/06/23 History spray CONGESTION budesonide 1 mg/2 mL suspension 1 mg irrigation DAILY nasal polps 02/26/23 05/06/23 History for nebulization budesonide-formoterol HFA 160 2 inh inhalation BID ASTHMA 05/04/23 Unknown History mcg-4.5 mcg/actuation aerosol inhaler (Symbicort) clindamycin HCl 150 mg capsule 150 mg PO DIRECTED #3 caps 06/29/23 Unknown Rx neomycin 500 mg tablet 500 mg PO DIRECTED #6 tabs 06/29/23 Unknown Rx tamsulosin 0.4 mg capsule 0.4 mg PO DAILY #30 caps 07/03/23 Unknown Rx tramadol 50 mg tablet 50 mg PO Q6H PRN pain #10 tabs 07/03/23 Unknown Rx diphenhydramine HCl 2 % topical gel 1 applic topical TID PRN itching 07/09/23 Unknown Rx #103 mL albuterol sulfate 2.5 mg/3 mL 2.5 mg (3 mL) inhalation Q4H PRN 06/12/24 Unknown Rx (0.083 %) solution for nebulization #25 vials cefdinir 300 mg capsule 300 mg PO BID 06/12/24 Unknown History losartan 25 mg tablet 25 mg PO DAILY 06/12/24 Unknown History prednisone 20 mg tablet 60 mg (3 x 20 mg) PO DAILY #12 06/12/24 Unknown Rx TABLETS Allergy/AdvReac Type Severity Reaction Status Date / Time ciprofloxacin Allergy Severe Hives Verified 06/12/24 08:15 metronidazole (From Flagyl) Allergy Severe Hives Verified 06/12/24 08:15 dupilumab (From Dupixent Pen) AdvReac syncope Verified 06/12/24 08:15 Surgical History S/P colostomy takedown Hx of colonoscopy Hx of discectomy History of carpal tunnel release of both wrists Hx of appendectomy History of tonsillectomy and adenoidectomy Hx of cholecystectomy Social History Smoking Status: Never smoker alcohol intake: current alcohol intake frequency: holidays/special occasions only substance use type: does not use ROS ROS ED Constitutional Constitutional ED: Denies chills, fever(s) or weight loss Eyes Eyes: Denies change in vision or diplopia ENT ENT ED: Reports rhinorrhea and other Details: Nasal congestion nasal polyps deviated septum ; Denies ear pain or sore throat Cardiovascular Cardiovascular: Denies chest pain, orthopnea, palpitations or racing heartbeat Respiratory/Chest Respiratory/Chest: Reports cough, dyspnea and dyspnea on exertion; Denies orthopnea Gastrointestinal Gastrointestinal: Denies abdominal pain, diarrhea, nausea or vomiting Genitourinary Genitourinary ED: Denies dysuria, hematuria or urinary frequency Musculoskeletal Musculoskeletal: Denies arthralgias or myalgias Integumentary Denies abscess or rash Neurologic Neurologic: Denies headache(s) or weakness Psychiatric Psychiatric: Denies anxiety, depression, suicidal ideation or suicidal thoughts Endocrine Endocrinology: Denies polydipsia, polyphagia or polyuria Allergic/Immunologic Allergic/Immunologic ED: Denies mouth swelling, tongue swelling or urticaria EXAM Physical Exam Const Vital Signs: 06/12/24 08:15 06/12/24 08:32 06/12/24 08:55 Temperature 98.9 F 98.4 F Temperature Source Oral Oral Pulse Rate 95 78 Respiratory Rate 24 H 15 Respiratory Effort Short of Breath Respiratory Pattern Blood Pressure 109/87 H 130/89 H Blood Pressure Mean 94 102 Pulse Ox 98 98 Oxygen Delivery Method Room Air Room Air Room Air 06/12/24 09:35 06/12/24 09:38 06/12/24 10:14 Temperature 98.6 F Temperature Source Oral Pulse Rate 100 80 86 Respiratory Rate 18 15 15 Respiratory Effort Respiratory Pattern Normal Blood Pressure 154/88 H 139/67 H Blood Pressure Mean 110 91 Pulse Ox 98 96 Oxygen Delivery Method Room Air Room Air 06/12/24 10:41 Temperature 97.6 F L Temperature Source Pulse Rate 87 Respiratory Rate 16 Respiratory Effort Respiratory Pattern Blood Pressure 105/94 H Blood Pressure Mean 97 Pulse Ox 96 Oxygen Delivery Method Positive well nourished and well developed General Appearance ED: well developed HEENT Reports normocephalic, head/scalp atraumatic and moist mucous membranes HEENT Narrative: Turbinate edema/nasal polyps nasally voice Eyes PERRL and EOMs intact bilaterally Neck no lymphadenopathy, supple and no JVD Resp normal respiratory effort and clear to auscultation bilaterally Resp Narrative: Audible wheeze with talking. He is inspiratory and expiratory wheeze. Decreased breath sound bilaterally no significant rhonchi is heard Cardio regular rate, regular rhythm and no murmurs GI normal to inspection, nondistended, normoactive bowel sounds and non-tender Palpation: soft Back/Spine no CVA tenderness and normal ROM Extremity normal to inspection General Extremety ED: Negative for edema General Extremity: Negative for edema Neuro oriented x3 and CN's II-XII intact bilaterally Sensorium / Orientation: alert Motor Exam: strength 5/5 throughout Psych mental status grossly normal Mood & Affect: Negative for depressed or tearful Skin no rashes or lesions noted and no wounds MDM MDM MDM Narrative Medical decision making narrative: Differential diagnosis includes bronchitis pneumonia pleural effusion congestive heart failure asthma exacerbation My independent interpretation of the chest x-ray is no acute process. White count 8.9 hemoglobin 15.5 BMP shows a glucose of 115. He received a DuoNeb and albuterol nebulizer as well as prednisone. Repeat lung examination shows significantly more air movement as well as resolution of his wheezing. He overall symptomatically feels improved. He has access to a nebulizer at home but needs the solution and mask which we will provide him. I will also write for burst dose prednisone. He states he is done well with this in the past with the exception of receiving a Kenalog shot in the setting of acute diverticulitis that led to a colostomy. His is hesitant for him to take him but he feels confident he will be okay as he does not have any diverticular symptoms currently. Patient to follow-up with pulmonology or primary care if not improving or with return of symptoms he can return. History & Record Review Discussion w/independent historian: Patient and Significant other Lab Data Attestation: I reviewed the patient's lab results. Labs: Laboratory Results - last 24 hr 06/12/24 08:57 WBC 8.9 RBC 5.31 Hgb 15.5 Hct 46.2 MCV 87.0 MCH 29.2 MCHC 33.5 RDW Std Deviation 42.4 RDW Coeff of [place] 13.3 Plt Count 235 MPV 9.5 Immature Gran % (Auto) 0.300 Neut % (Auto) 56.8 Lymph % (Auto) 19.2 [place] % (Auto) 7.5 Eos % (Auto) 15.2 H Baso % (Auto) 1.0 Absolute Neuts (auto) 5.1 Absolute Lymphs (auto) 1.71 Nucleated RBC % 0 Sodium 140 Potassium 3.9 Chloride 107 Carbon Dioxide 25.0 Anion Gap 8 BUN 20 H Creatinine 1.28 Estim Creat Clear Calc 56.04 Est GFR (MDRD) Af Amer 71 Est GFR (MDRD) Non-Af 59 L BUN/Creatinine Ratio 15.6 Glucose 115 H Calcium 9.1 Radiography Diagnostic Testing: Clinical Impression(s) from Imaging Studies Chest X-Ray 06/12/24 08:53 IMPRESSION: NEGATIVE CHEST. Reading Location: [facility] Discharge Plan Triage Chief Complaint: Shortness of Breath ED Provider: Janes Santizo Dx/Rx/DC Orders Clinical Impression: Asthma exacerbation, Acute bronchospasm, Acute dyspnea Instructions: Asthma Prescriptions: New albuterol sulfate 2.5 mg /3 mL (0.083 %) solution for nebulization 2.5 mg inhalation Q4H PRN Qty: 25 0RF Rx Instructions: Use q4 hours and PRN for wheezing prednisone 20 mg tablet 60 mg PO DAILY Qty: 12 0RF No Action montelukast 10 mg tablet 10 mg PO DAILY fluticasone propionate 50 mcg/actuation [place],Suspension 2 spray INTRANASAL DAILY cholecalciferol (vitamin D3) [Vitamin D3] 25 mcg (1,000 unit) Tablet 125 mcg PO DAILY [id number]-xwof-rbasl-oreg-capry 100 mg-150 mg- 50 mg-150 mg Capsule 1 cap PO DAILY azelastine 137 mcg (0.1 %) aerosol,spray 1 spray INTRANASAL DAILY albuterol sulfate [Ventolin HFA] 90 mcg/actuation HFA aerosol inhaler 1 puff INHALATION Q4H PRN (Reason: shortness of breath or wheezing) Patient Comments: Inhale 2 puff using inhaler every six hours as needed budesonide 1 mg/2 mL suspension for nebulization 1 mg irrigation DAILY Patient Comments: INHALE 1 VIAL USING NEBULIZER TWICE DAILY budesonide-formoterol [Symbicort] 160-4.5 mcg/actuation HFA aerosol inhaler 2 inh INHALATION BID Patient Comments: INHALE 2 PUFFS BY MOUTH TWICE DAILY. RINSE MOUTH AFTER USE tamsulosin 0.4 mg Capsule 0.4 mg PO DAILY Qty: 30 0RF tramadol 50 mg tablet 50 mg PO Q6H PRN (Reason: pain) Qty: 10 0RF losartan 25 mg tablet 25 mg PO DAILY cefdinir 300 mg capsule 300 mg PO BID clindamycin HCl 150 mg capsule 150 mg PO DIRECTED Qty: 3 0RF Rx Instructions: Take 1 tab PO at 1p,3p, and 11p the day prior to surgery neomycin 500 mg tablet 500 mg PO DIRECTED Qty: 6 0RF Rx Instructions: Take 2 tabs PO at 1p, 3p, and llp the day prior to surgery diphenhydramine HCl 2 % gel 1 applic topical TID PRN (Reason: itching) Qty: 103 0RF Primary Care Provider: Jewel Hinojosa Referrals: Jewel Hinojosa MD [Primary Care Provider] - 3-5 Days if not improving Print Language: Hungarian Disposition Disposition: Home, Self Care Discharge Date/Time: 06/12/24 10:49
[2024-06-12 09:22] LABS: Anion Gap 8 (5-15); BUN 20 mg/dL (7-18); BUN/Creat Ratio 15.6 RATIO (10-20); Calcium,Total 9.1 mg/dL (8.5-10.1); Chloride 107 mmol/L (98-107); Creatinine, Serum 1.28 mg/dL (0.70-1.30); EST Glomerular Filtration Rate 59 mL/min (>60); Est Glom Filt Rate - Afr Amer 71 mL/min (>60); Estimated Creatinine Clearance 56.04 ml/min; Glucose 115 mg/dL (74-106); Potassium 3.9 mmol/L (3.5-5.1); Sodium Level 140 mmol/L (136-145)
[2024-06-12] MEDS: Ipratropium/Albuterol Sulfate 3 ML AMPUL.NEB INHALATION (09:31)
[2024-06-12] MEDS: Albuterol 2.5 MG/3 ML VIAL.NEB. INHALATION (09:31)
[2024-06-12] MEDS: INHALER, ASSIST DEVICES 1 EACH SPACER INHALATION (09:44)
[2024-06-12] MEDS: predniSONE 20 MG Tablet 60 MG PO (09:44)
== END 2024-06-12 10:49 | disposition home or self-care (01) ==
PROVIDERS: Emergency Provider Emergency Medicine; PCP Family Medicine; Visit Provider Emergency Medicine
DX: J45.901 Unspecified asthma with (acute) exacerbation (principal); Z93.3 Colostomy status; E11.9 Type 2 diabetes mellitus without complications; I10 Essential (primary) hypertension; R06.00 Dyspnea, unspecified; Z79.51 Long term (current) use of inhaled steroids; Z90.49 Acquired absence of other specified parts of digestive tract
CPT/HCPCS: 71045; 80048; 85025; 87631; 94640; 99284; A4216

== ENCOUNTER → 2024-10-26 | Outpatient (CLI) | payer MEDICARE, OTHER, SELFPAY ==
[2024-10-26 13:26] LABS: Cholesterol 139 mg/dL (<=200); Low Density Lipoprotein Calc. 72 mg/dL; Triglycerides 106 mg/dL; Very Low Density Lipoprotein 21 mg/dL (5-40); cholesterol:hdl ratio screen 3.05
[2024-10-26 13:32] LABS: PSA,Total- Diagnostic 5.24 ng/mL (0.00-4.00)
== END | disposition home or self-care (01) ==
LOC: MTLAB 09:45
PROVIDERS: PCP Family Medicine; Referring Provider Family Medicine; Visit Provider Family Medicine
DX: R73.03 Prediabetes (principal); I10 Essential (primary) hypertension; N40.0 Benign prostatic hyperplasia without lower urinary tract symptoms
CPT/HCPCS: 36415; 80061; 83036; 84153

== ENCOUNTER → 2024-10-31 | Outpatient (CLI) | payer MEDICARE, OTHER, SELFPAY | END | disposition home or self-care (01) | LOC: CVS 08:48 | PROVIDERS: PCP Family Medicine; Referring Provider Family Medicine; Visit Provider Family Medicine | DX: I73.9 Peripheral vascular disease, unspecified (principal) | CPT/HCPCS: 93922 ==